=== PATIENT | female | born 1960 | race Caucasian/White ===

== ENCOUNTER 2024-02-03 11:36 | Inpatient (IN) | payer OTHER, SELFPAY ==
[2024-02-03] VITALS (13 sets, daily range): BP systolic 144–230; BP diastolic 73–120; BMI 37.5
[2024-02-03 08:46] LABS: % Basophils 0.6 % (0-2); % Eosinophils 0.8 % (0-6); % Immature Granulocytes 0.4 % (0-0.5); % Monocytes 6.7 % (1.7-9.3); % Neutrophils 72.5 % (42.2-75.2); Absolute Basophils 0.1 10^3/uL (0-0.2); Absolute Eosinophils 0.1 10^3/uL (0-0.7); Absolute Immature Granulocytes 0.1 10^3/uL (0-0.05); Absolute Lymphocytes 2.2 10^3/uL (1.2-3.4); Absolute Monocytes 0.8 10^3/uL (0.1-0.6); Absolute Neutrophils 8.6 10^3/uL (1.4-6.5); Hematocrit 46.5 % (37.0-47.0); Hemoglobin 15.6 g/dL (12.0-16.0); Mean Corp Hgb Conc. 33.5 g/dL (33.0-37.0); Mean Corpuscular Hgb 27.9 pg (27.0-31.0); Mean Platelet Volume 10.2 fL (7.4-10.4); Nucleated Red Blood Cells % 0 %; Platelet Count 269 10^3/uL (130-400); Red Cell Dist. Width 13.4 % (11.5-14.5); White Blood Cell Count 11.8 10^3/uL (4.8-10.8)
[2024-02-03] MEDS: SUBLIMAZE 100 MCG IV (09:01)
--- NOTE | 2024-02-03 09:01 | ED.GENMED ---
History of Present Illness
<Ramiro Parra PA-C - Last Filed: 02/03/24 14:22>
General
Chief Complaint: Musculo-Skeletal Complaint
Time Seen by Provider: 02/03/24 08:12
Travel History
Have you had any contact with someone who has COVID-19?: No
Do you have any symptoms of coronavirus? Fever > 100 degrees, chills, cough, shortness of breath, sore throat, loss of taste or smell, muscle aches, or headache?: No
History of Present Illness
History of Present Illness:
63-year-old female with history of insulin-dependent diabetes presents to the emergency department for evaluation of a right ankle deformity after mechanical fall apparently today. She states she tripped over her suitcase and heard an audible
snapping right ankle. There is a visible deformity with a small open wound to the medial talus. She is NOT on anticoagulants
Past History
<Ramiro Parra PA-C - Last Filed: 02/03/24 14:22>
Past History
ED Past Medical History: NIDDM, Psychiatric and Other (Diverticulitis/diverticulosis, ovarian cyst, anxiety, depression)
ED Past Surgical History: Appendectomy, Bowel resection, Cholecystectomy and Orthopedic
Social History
Tobacco: Non-smoker
Alcohol: None
Drug: None
Living: alone
Employment: Not employed
Family History
Family History: Other
Review of Systems
<Ramiro Parra PA-C - Last Filed: 02/03/24 14:22>
Review of Systems
Allergies reviewed?: Yes
All Other Systems: ROS reviewed and negative except as documented in HPI and ROS
Phy Exam
<Ramiro Parra PA-C - Last Filed: 02/03/24 14:22>
Physical Exam
Physical Exam:
GEN: Well appearing, NAD, WDWN
HEENT: Oral mucosa moist, no scleral icterus
Cardiac: Regular rate
Lung: No respiratory distress, no tachypnea
MSK: Right ankle deformity with severe swelling/hematoma to the medial aspect, small open wound with some skin tenting of the medial malleolus; no tenderness or deformity to the proximal right lower leg. R DP pulse 2+, sensation intact globally to
the R foot
Skin: Good color, no pallor or jaundice, no rashes
Neuro: AO x3, moves all extremities freely
Psych: Calm, cooperative
Course
<Ramiro Parra PA-C - Last Filed: 02/03/24 14:22>
Orders/Labs/Results
Orders:
Orders
02/03/24 08:29
Fentanyl Citrate/Pf [Sublimaze] 100 mcg IV NOW STA
CR Ankle - Right Min 3 Views * Urgent
Comment:
Reason For Exam: injury
CR Leg Tibia/fibula Right 2 Vw Urgent
Comment:
Reason For Exam: injury
02/03/24 08:41
Basic Metabolic Panel Urgent
Complete Blood Count/With Diff Urgent
02/03/24 Lunch
NPO
Allow oral meds: No
Allow clear liquids: No
02/03/24 10:53
CR Ankle - Right 2 Views Urgent
Comment:
Reason For Exam: post reduction
02/03/24 11:19
Admit/Transfer Patient As Directed
Co-Sign Provider:
Level of Care: Inpatient admission
Assign to:: Medical/Surgical
Physician / Group: Pati
Diagnosis: Ankle fracture
Reason for Hospitalization: Above
Expected length of stay greater than two midnights?: Yes
ELOS- Estimated Length of Stay in days: 2
I certify the patient meets the requirements for IP care: Yes
02/03/24 11:21
Code Status As Directed
Resuscitation Status: Full Code
02/03/24 12:18
HYDROmorphone [Dilaudid] 0.5 mg IV Q4HPRN PRN
Abnormal Lab Results
02/03/24
08:41
WBC 11.8 H 10^3/uL
(4.8-10.8)
RBC 5.60 H 10^6/uL
(4.20-5.40)
Abs Immat Gran (auto) 0.1 H 10^3/uL
(0-0.05)
Absolute Neuts (auto) 8.6 H 10^3/uL
(1.4-6.5)
Absolute Monos (auto) 0.8 H 10^3/uL
(0.1-0.6)
Lymphocytes % 19.0 L %
(20.5-51.1)
Sodium 134 L mmol/L
(135-145)
BUN 18 H mg/dl
(7-17)
Glucose 423 H mg/dl
(70-99)
02/03/24 08:41
02/03/24 08:41
Vital Signs
Initial and Last Documented VS:
Initial Vital Signs
Temp Pulse BP Pulse Ox
98.7 F 103 202/119 97
02/03/24 08:02 02/03/24 08:02 02/03/24 08:02 02/03/24 08:02
Last Documented Vital Signs
Temp Pulse Resp BP Pulse Ox
98.7 F 92 17 175/89 97
02/03/24 08:02 02/03/24 12:15 02/03/24 12:15 02/03/24 10:02 02/03/24 10:02
<Giovanni Headley MD - Last Filed: 02/03/24 14:07>
Orders/Labs/Results
Orders:
Orders
02/03/24 08:29
Fentanyl Citrate/Pf [Sublimaze] 100 mcg IV NOW STA
CR Ankle - Right Min 3 Views * Urgent
Comment:
Reason For Exam: injury
CR Leg Tibia/fibula Right 2 Vw Urgent
Comment:
Reason For Exam: injury
02/03/24 08:41
Basic Metabolic Panel Urgent
Complete Blood Count/With Diff Urgent
02/03/24 Lunch
NPO
Allow oral meds: No
Allow clear liquids: No
02/03/24 10:53
CR Ankle - Right 2 Views Urgent
Comment:
Reason For Exam: post reduction
02/03/24 11:19
Admit/Transfer Patient As Directed
Co-Sign Provider:
Level of Care: Inpatient admission
Assign to:: Medical/Surgical
Physician / Group: Pati
Diagnosis: Ankle fracture
Reason for Hospitalization: Above
Expected length of stay greater than two midnights?: Yes
ELOS- Estimated Length of Stay in days: 2
I certify the patient meets the requirements for IP care: Yes
02/03/24 11:21
Code Status As Directed
Resuscitation Status: Full Code
02/03/24 12:18
HYDROmorphone [Dilaudid] 0.5 mg IV Q4HPRN PRN
Abnormal Lab Results
02/03/24
08:41
WBC 11.8 H 10^3/uL
(4.8-10.8)
RBC 5.60 H 10^6/uL
(4.20-5.40)
Abs Immat Gran (auto) 0.1 H 10^3/uL
(0-0.05)
Absolute Neuts (auto) 8.6 H 10^3/uL
(1.4-6.5)
Absolute Monos (auto) 0.8 H 10^3/uL
(0.1-0.6)
Lymphocytes % 19.0 L %
(20.5-51.1)
Sodium 134 L mmol/L
(135-145)
BUN 18 H mg/dl
(7-17)
Glucose 423 H mg/dl
(70-99)
02/03/24 08:41
02/03/24 08:41
Vital Signs
Initial and Last Documented VS:
Initial Vital Signs
Temp Pulse BP Pulse Ox
98.7 F 103 202/119 97
02/03/24 08:02 02/03/24 08:02 02/03/24 08:02 02/03/24 08:02
Last Documented Vital Signs
Temp Pulse Resp BP Pulse Ox
98.7 F 92 17 175/89 97
02/03/24 08:02 02/03/24 12:15 02/03/24 12:15 02/03/24 10:02 02/03/24 10:02
Procedures
<Ramiro Parra PA-C - Last Filed: 02/03/24 14:22>
Joint/Fracture Reduction
Right Ankle:
Indication for procedure:: Trimalleolar fracture
Procedure completed by: Ramiro Parra PA-C
Consent form signed: No
Joint reduced: without anesthesia
Anesthesia/sedation: 1% Lidocaine and Injection to joint space
Injury was: open
Further treatement: needs further treatment
Post reduction exam: unstable
Capillary Refill: normal
Normal distal neurovascular exam?: Yes
<Ramiro Parra PA-C - Last Filed: 02/03/24 14:22>
MDM/Problems Addressed
MDM/Problems Addressed:
I reviewed clinical x-ray images of the patient's ankle with orthopedics and they will take the patient for operative intervention later today. I did perform hematoma block with bedside reduction and splinting, it was requested to hold IV
antibiotics until preoperative. Tetanus status updated due to open fracture, will be admitted to the hospitalist service due to uncontrolled hyperglycemia/insulin-dependent diabetes
<Ramiro Parra PA-C - Last Filed: 02/03/24 14:22>
*Critical Care Note
Total Time (30-74mins, 75-104mins- exclusive of procedures): Not Applicable
<Ramiro Parra PA-C - Last Filed: 02/03/24 14:22>
Update Note
Update Note:
0909: [employer] message sent to Orthopedics due to concern for subtle open fx.
0954: D/W Ortho, they will evaluate at bedside. Requesting no reduction/immobilization yet. Will keep pt NPO
ED Attending Note
<Ramiro Parra PA-C - Last Filed: 02/03/24 14:22>
-
Portions of this chart may have been created with voice recognition software.� Occasional wrong word or��sound alike� substitutions may have occurred due to the inherent limitations of voice recognition software.
<Giovanni Headley MD - Last Filed: 02/03/24 14:07>
ED Attending Note
Patient seen and examined by attending physician: Yes
ED Attending Note:
Patient presents ED secondary to sudden onset of right ankle pain, which occurred, when she got out of bed and was walking. Patient reports hearing 'snap'. Patient presents with obvious deformity and swelling of the affected ankle. Denies any
other injuries. Denies loss of sensation or weakness.
Physical Exam
General: moderate painful distress, not acutely ill. afebrile
Head: nc/at. eomi
Neck: supple. no meningeal signs.
Neuro: alert and oriented. no focal neurological deficits
Skin: no rash
Psychiatric: well kept. interactive and cooperative
Extremities: right ankle: deformity noted with ecchymosis/swelling/severe tenderness to palpation
X-ray report reviewed and discussed with on-call orthopedic surgeon, Dr. Akbar. Patient will be admitted for further evaluation and treatment. Patient given hematoma block and ankle reduced by STACEY Tobias, along with application of splint
afterwards. Pt remains neurologically intact.
Discharge Plan
Departure
Patient Disposition: Admit
Date of Disposition: 02/03/24
Time of Disposition: 10:53
Admit to: Med/Surg
Presentation/result/management discussed w/ accepting MD/DO: Hospitalist
Discharge Problem:
Open trimalleolar fracture of right ankle
Interventions
Interventions:
*Risk Screen - Suicide Last Done: 02/03/24 09:23
*General Assessment Last Done: 02/03/24 09:23
*Neglect/Abuse Screening Last Done: 02/03/24 09:23
ED- Fall Risk Assessment Last Done: 02/03/24 09:25
*ED COVID-19 Vaccine History Last Done: 02/03/24 08:09
ED-Musculoskeletal Assessment Last Done: 02/03/24 09:23
[2024-02-03 09:14] LABS: Blood Urea Nitrogen 18 mg/dl (7-17); Calcium 9.6 mg/dl (8.4-10.2); Carbon Dioxide 24 mmol/L (22-30); Chloride 99 mmol/L (98-107); Glucose 423 mg/dl (70-99); Sodium 134 mmol/L (135-145); eGFR > 60.00
--- NOTE | 2024-02-03 11:26 | HPS.HSE ---
Family Physician
-
Family Physician: WEI Mena
Chief Complaint
-
Fall with right ankle fracture
History of Present Illness
Patient is a 63 years old female with insulin requiring diabetes and hypertension who presents to the emergency room after misstep and fall at home. Patient denies any head trauma or loss of consciousness. She did hear a snap at the right ankle
and noticed right ankle deformity. She presented to the emergency room.
Medical History
Past Medical History
Past Medical History: Reports HTN and IDDM
Past Surgical History: Reports None
Social History
Tobacco: Non-smoker
Alcohol: None
Drug: None
Living: With Family
Family History
Family History: Not pertinent
Allergies / Home Medications
Allergies reflects when Allergies were last updated in [facility].
Home Medications with original date entered in [facility]
Allergy/Medication List:
Allergies
Allergy/AdvReac Type Severity Reaction Status Date / Time
latex AdvReac Unknown Verified 02/03/24 08:11
petroleum Allergy Rash Uncoded 02/03/24 08:11
Home Medications
escitalopram oxalate 5 mg tablet (Lexapro) 5 mg PO DAILY Mental Health/Anxiety 01/12/23
amlodipine 5 mg tablet 5 mg PO QPM Blood pressure 01/15/23
cveyzoiv-urpd-xtr-iron 18 mg-folic 240 mcg-vit K 120 mcg-herbal tablet ([employer]) 1 tab PO DAILY Supplement 01/15/23
insulin glargine 100 unit/mL (3 mL) subcutaneous pen (Lantus Solostar U-100 Insulin) 25 unit (0.25 mL) SC HS #5 ea 01/17/23
insulin lispro 100 unit/mL subcutaneous pen (Humalog KwikPen (U-100) Insulin) 10 unit (0.1 mL) SC AC #5 ea 01/17/23
atorvastatin 20 mg tablet (Lipitor) 20 mg PO QPM 02/03/24
lisinopril 20 mg tablet 20 mg PO DAILY 02/03/24
metformin 500 mg tablet,extended release 24hr (osmotic) 500 mg PO BID@0800,1700 Diabetes 02/03/24
naproxen sodium 220 mg tablet (Aleve) 220 mg PO BID 02/03/24
Review of Systems
-
A 12 point ROS was completed and negative except as noted: Yes
Musculoskeletal: Reports See HPI
Physical Exam
Vital Signs
Vital Signs
Temp Pulse Resp BP Pulse Ox
98.7 F 100 16 175/89 97
02/03/24 08:02 02/03/24 10:02 02/03/24 10:02 02/03/24 10:02 02/03/24 10:02
Physical Exam
General: Well Developed, Well Nourished and No Apparent Distress
HEENT: NormoCephalic, Moist mucous membranes and Atraumatic
Respiratory: Clear
Cardiac: S1/S2 and Regular Rhythm; No Murmur or Rub
GI: Soft, Non Tender, Non Distended and Normal Bowel Sounds; No Organomegaly
Rectal: Deferred by Provider
Musculoskeletal: No Clubbing, No Cyanosis and No Edema
Skin: No Rash
Neuro: Nonfocal/grossly intact
Laboratory Results
-
02/03/24 08:41
02/03/24 08:41
Laboratory Results
Total Bilirubin Cancelled 02/03/24 08:41
AST Cancelled 02/03/24 08:41
ALT Cancelled 02/03/24 08:41
Alkaline Phosphatase Cancelled 02/03/24 08:41
Data Reviewed
-
Diagnostic Radiology: Report Reviewed by me
Lab Data: Labs Reviewed by me
Impression/Plan
-
IMPRESSION:
Status post mechanical fall with comminuted fracture of the distal right tibia and fibula.
Conditions prior to admission:
IDDM.
Essential hypertension
Obesity
PLAN:
Right distal tibia and fibula fracture
Podiatry consultation.
Plan for OR on 02/02.
NPO.
Patient has no more prior history of cardiovascular, pulmonary, renal conditions, and does not require any additional workup prior to surgical intervention
Medically cleared for OR
IDDM
Noted with hyperglycemia upon admission.
Update hemoglobin A1c.
Resume Lantus/NovoLog/metformin regimen postoperatively along with carbohydrate diet.
Essential hypertension
Continue lisinopril and amlodipine.
Monitor blood pressure trend.
DVT prophylaxis to be determined post operatively
Full code.
--- NOTE | 2024-02-03 13:39 | CON.ORTHO ---
Consultation
-
Date/Time Consultation Requested: February 20
Date/Time Consultation Performed: February 20
Requesting Provider: Ramiro aPrra PA-C
Performing Provider: Amara harvey Shelli
Reason for Consultation: Right open Trimalleolar ankle fracture
Consultation - Orthopedics
History
Dictation#[id number]
Asked to see this pleasant 63 y/o white female with PMH of IDDM, diverticulosis, ovarian cyst, anxiety, depression who unfortunately tripped and fell at home this AM in the bedroom. She heard a felt an audible crack in the ankle and noticed
significant deformity. She was unable to get to her feet. She was able to get to a phone and was subsequently transported here to [facility] where plain xrays confirmed a trimalleolar fracture of her RIGHT ankle. There also appeared to be a small punctate
wound medially concerning for open fracture. There was an attempt to close reduce and splint in the ED with post-reduction films showing slightly better position. We have been requested in consultation for the consideration of surgical fixation
Allergies / Home Medications
Allergy/AdvReac Type Severity Reaction Status Date / Time
latex AdvReac Unknown Verified 02/03/24 08:11
petroleum Allergy Rash Uncoded 02/03/24 08:11
�Medication �Instructions �Recorded
escitalopram oxalate 5 mg tablet 5 mg PO DAILY Mental Health/Anxiety 01/12/23
(Lexapro)
amlodipine 5 mg tablet 5 mg PO QPM Blood pressure 01/15/23
wkdjcmxd-zfep-zyv-iron 18 mg-folic 1 tab PO DAILY Supplement 01/15/23
240 mcg-vit K 120 mcg-herbal
tablet ([employer])
insulin glargine 100 unit/mL (3 25 unit (0.25 mL) SC HS #5 ea 01/17/23
mL) subcutaneous pen (Lantus
Solostar U-100 Insulin)
insulin lispro 100 unit/mL 10 unit (0.1 mL) SC AC #5 ea 01/17/23
subcutaneous pen (Humalog KwikPen
(U-100) Insulin)
atorvastatin 20 mg tablet (Lipitor) 20 mg PO QPM 02/03/24
lisinopril 20 mg tablet 20 mg PO DAILY 02/03/24
metformin 500 mg tablet,extended 500 mg PO BID@0800,1700 Diabetes 02/03/24
release 24hr (osmotic)
naproxen sodium 220 mg tablet 220 mg PO BID 02/03/24
(Aleve)
Vital Signs / Lab Results
Temp Pulse Resp BP Pulse Ox
98.7 F 92 17 175/89 97
02/03/24 08:02 02/03/24 12:15 02/03/24 12:15 02/03/24 10:02 02/03/24 10:02
02/03/24 08:41
02/03/24 08:41
Assessment / Plan
PE: Bedrest ED8. RLE splinted and elevated on pillows. Small punctate wound medially on the ankle. Considerable amount of generalized edema. Generalized pain to palpation right ankle. Wiggles toes and has good sensation distally. Abrasion noted
right knee. DNVI RLE
Labs: Hgb 15.6 Glucose 423
Xrays: RIGHT, open, trimalleolar ankle fracture, with post-reduction xrays showing better alignment overall
Impression: TANIA
Plan: I discussed at length with the patient regarding, what we believe to be, her right OPEN trimalleolar ankle fracture. After reviewing all her options, including nonsurgical and surgical, as well as all the RBAs associated with each form of
management, she has elected to proceed with surgical correction. Given the amount of swelling here I would suggest we proceed with I&D of the ankle with external fixation/framing with definitive ORIF management when swelling as improved. If, at the
time of surgery, Dr. Marques feels as though ORIF can be achieved safely with regards to post-op wound concerns, he may also proceed with hardware placement. I did explain to her that I&D with external fixation/framing is more likely. We discussed
the concerns we have with wound concerns/healing with these fractures in the face of the amount of swelling she has. Also, her IDDM predisposes her to wound complications as well, so decreasing that risk as much as possible would be highly
recommended. Also her glucose here in the ED came back at 423. We are going to proceed shortly with likely I&D and ex-fix placement vs. ORIF of her RIGHT ankle. We discussed the post-op and rehab course as well. Patient is and will remain NPO. ABX
analytical consultant. T&S requested. Surgical and blood consents have been signed and are at the OR desk. Operative site has been marked as the RIGHT ankle. Dr. Marques notified. Will follow
[2024-02-03] MEDS: ADACEL 0.5 ML IM (14:29)
--- NOTE | 2024-02-03 16:47 | PTCARENOTE ---
Addendum entered by Marlena Rey RN 02/03/24 16:54:
BP on arrival 237/155 HR 120 automatic, 230/120 manual. Pt denies visual impairments, but c/o headache 11/09. Dr Krueger made aware. Care remains ongoing.
Original Note:
Pt arrived to 2S via stretcher, slid to bed via NSG staff. Full assessment completed. RLE splint maintained. RLE warm, <2 cap refill, + R popliteal pulse. Pt maintained as bedrest. Bed locked and in the lowest position, safety maintained. Oriented
to room and call fay.
[2024-02-03] MEDS: DILAUDID 0.5 MG IV ×2 (17:06→23:08)
[2024-02-03] MEDS: ZOFRAN 4 MG IV (17:06)
[2024-02-03] MEDS: TRANDATE 10 MG IV ×2 (17:09→23:09)
[2024-02-03] MEDS: NOVOLOG FLEXPEN SC (18:04)
[2024-02-03 18:05] LABS: Glucose - Point of Care 271 mg/dl (70-99)
[2024-02-03] MEDS: NOVOLOG FLEXPEN-LOW RESISTANCE 3 UNITS SC (18:28)
--- NOTE | 2024-02-03 20:30 | TRANSFER ---
pt was seen by Dr. Marques, then was prepped and taken over to OR @ 2015 in bed.
--- NOTE | 2024-02-03 21:30 | W.PN.UPDATE ---
Update Note
Progress Note Update
S/p right open ankle ex fix application and incision and drainage
-Resume diet
-Strict NWB RLE
-Continue Ancef x24 hr per SCIP protocol
-Dressings C/D/I
-Post operative CT Scan
-Plan for ORIF and exfix removal with swelling resolution, likely 1 week
[2024-02-03 21:41] LABS: Glucose - Point of Care 323 mg/dl (70-99)
[2024-02-03] MEDS: NOVOLOG vial 4 UNITS SC (22:07)
[2024-02-03] MEDS: OFIRMEV 100 IV (22:15)
[2024-02-03] MEDS: LANTUS 0.25 UNITS SC (23:31)
[2024-02-03] MEDS: DESENEX/MITRAZOL/ZEASORB 1 APPLIC TOPICAL (23:31)
[2024-02-03 23:38] LABS: Glucose - Point of Care 304 mg/dl (70-99)
[2024-02-04] VITALS (8 sets, daily range): BP systolic 122–178; BP diastolic 59–102; PULSE 89; O2SAT 97
--- NOTE | 2024-02-04 00:09 | TRANSFER ---
2225: report received from [employer] Tasha, pt was brought back to 2S in bed w new right ankle external fixator, RLE wrapped in ALPHONSO - unable to visualize insertion sites. +CMS to toes, + popliteal pulse. c/o 04/08 pain, pt medicated appropriately.
purewick in place, pt ordered NWB to RLE. Assessment ongoing.
[2024-02-04] MEDS: NOVOLOG FLEXPEN-LOW RESISTANCE SC (01:26)
[2024-02-04] MEDS: ANCEF 5 IV ×3 (04:44→20:27)
[2024-02-04] MEDS: DILAUDID 0.5 MG IV ×3 (04:47→20:27)
[2024-02-04 05:42] LABS: % Basophils 0.2 % (0-2); % Immature Granulocytes 0.5 % (0-0.5); % Lymphocytes 7.2 % (20.5-51.1); % Monocytes 3.5 % (1.7-9.3); % Neutrophils 88.6 % (42.2-75.2); Absolute Immature Granulocytes 0.1 10^3/uL (0-0.05); Absolute Lymphocytes 1.1 10^3/uL (1.2-3.4); Absolute Monocytes 0.5 10^3/uL (0.1-0.6); Absolute Neutrophils 13.5 10^3/uL (1.4-6.5); Hematocrit 44.5 % (37.0-47.0); Hemoglobin 14.9 g/dL (12.0-16.0); Mean Corp Hgb Conc. 33.5 g/dL (33.0-37.0); Mean Corpuscular Hgb 27.7 pg (27.0-31.0); Mean Corpuscular Volume 82.9 fL (81.0-99.0); Mean Platelet Volume 10.4 fL (7.4-10.4); Nucleated Red Blood Cells % 0 %; Platelet Count 233 10^3/uL (130-400); Red Blood Cell Count 5.37 10^6/uL (4.20-5.40); Red Cell Dist. Width 13.5 % (11.5-14.5); White Blood Cell Count 15.2 10^3/uL (4.8-10.8)
[2024-02-04] MEDS: ZOFRAN 4 MG IV ×3 (05:49→20:28)
[2024-02-04 06:23] LABS: Blood Urea Nitrogen 18 mg/dl (7-17); Carbon Dioxide 24 mmol/L (22-30); Chloride 99 mmol/L (98-107); Estimated Creatinine Clearance 87 ml/min; Glucose 325 mg/dl (70-99); Potassium 4.2 mmol/L (3.5-5.1); Sodium 133 mmol/L (135-145); eGFR > 60.00
[2024-02-04 07:02] LABS: Hepatitis C Antibody Negative (Negative)
--- NOTE | 2024-02-04 07:04 | W.PN.UPDATE ---
Update Note
Progress Note Update
Tala is resting comfortably in bed this morning. She states that her pain is well controlled with pain medications. She does endorse pain with movement. She states that her neuropathy in her foot is at baseline. She is worried about going home.
Focused exam to right ankle. Exfix in place. Dressings clean, dry, and intact. Compartments soft and compressible. Sensation decreased but at baseline for patient who has known neuropathy. Cap refill <2 secs.
POD1 right ankle exfix application, I&D under the direction of Dr. Marques for right open trimalleolar fracture
--Strict non weight bearing to right leg
--Elevate and ice often for edema control
--Continue pain medications as needed
--Hemaglobin 14.5, Glucose 325 on AM labs
--CT scan ordered. Will follow
--Plan for ORIF and exfix removal with swelling resolution, likely 1 week
--Case management consult
[2024-02-04 07:11] LABS: Glucose - Point of Care 372 mg/dl (70-99)
[2024-02-04] MEDS: ZESTRIL 20 MG PO ×2 (08:28→20:26)
[2024-02-04] MEDS: LEXAPRO 5 MG PO (08:28)
[2024-02-04] MEDS: DESENEX/MITRAZOL/ZEASORB 1 APPLIC TOPICAL ×2 (08:29→20:37)
[2024-02-04] MEDS: NOVOLOG FLEXPEN 10 UNITS SC ×2 (08:29→11:48)
[2024-02-04] MEDS: NOVOLOG FLEXPEN-LOW RESISTANCE 5 UNITS SC (08:30)
[2024-02-04 11:48] LABS: Glucose - Point of Care 226 mg/dl (70-99)
[2024-02-04] MEDS: NOVOLOG FLEXPEN-LOW RESISTANCE 2 UNITS SC (11:49)
[2024-02-04] MEDS: TRANDATE 10 MG IV (12:04)
[2024-02-04] MEDS: PROTONIX 40 MG PO (12:28)
[2024-02-04 12:30] LABS: Glucose - Point of Care 246 mg/dl (70-99)
[2024-02-04] MEDS: NORVASC 5 MG PO ×2 (13:44→20:26)
--- NOTE | 2024-02-04 15:21 | CM ---
Addendum entered by Lindsay Shearer 02/04/24 16:14:
Patient accepted at [facility]
NPI# [id number]
Dr Clarke NPI # [id number]
will initiate auth when stable.
Original Note:
Patient seen bedside.
IA completed.
Patient lives alone in a first floor apartment.
5 steps to apartment.
patient independent prior to admission without assistive devices.
Patient was driving prior to admission.
Patient is retired.
Patient has not had VN in the past.
Per patient there is noone to help her at home, her sister is away and her mother is ill.
PT/OT recommending skilled rehab, patient requested [facility], back up facilities [facility] and [facility].
TC to [facility], they should have a bed, await TCB.
Patient will need insurance authorization.
PCP: Dr An
Pharmacy: [facility]
Plan: skilled rehab.
--- NOTE | 2024-02-04 15:52 | W.PN.HOSP.TC ---
Today's Communication/Plan
-
Reinstate PT OT with strict nonweightbearing on the right lower extremity
Adjust diabetic and antihypertensive regimen
Assessment / Plan
Assessment / Plan
IMPRESSION:
Status post mechanical fall with comminuted fracture of the distal right tibia and fibula.
Conditions prior to admission:
IDDM.
Essential hypertension
Obesity
PLAN:
Right distal tibia and fibula fracture
Status post Ex fix application of open ankle with incisions and debridement on 02/02
Strict nonweightbearing on right lower extremity
Pain control
Perioperative antibiotics for 24 hours.
ORIF in 1 week tentatively for Friday 02/09
IDDM
Noted with hyperglycemia upon admission.
Globin A1c 11
Adjust insulin dose with hyperglycemia
Reintroduce metformin
Essential hypertension
Elevated BP likely function of pain
Increase amlodipine and lisinopril. Continue IV labetalol
Monitor blood pressure trend.
DVT prophylaxis to be determined post operatively
Full code.
Anticipated Discharge: > 48 hours
Subjective/Interval History
-
Date of Service: February 04, 2024
Objective Data
-
Labs:
Laboratory Results
02/04/24
04:35
WBC 15.2 H
Hgb 14.9
Hct 44.5
Plt Count 233
Sodium 133 L
Potassium 4.2
Chloride 99
Carbon Dioxide 24
BUN 18 H
Creatinine 0.7
Glucose 325 H
Calcium 9.0
Vital Signs:
Vital Signs
Temp Pulse Resp BP Pulse Ox
97.6 F 97 18 152/84 98
02/04/24 15:00 02/04/24 15:00 02/04/24 15:00 02/04/24 15:00 02/04/24 15:00
I&O
02/03/24 02/04/24 02/05/24
06:59 06:59 06:59
Intake Total 465 / 465
Output Total 150 / 150
Balance 315 / 315
Physical Exam
-
General: Well Developed and No Apparent Distress
HEENT: Normocephalic, Atraumatic and Moist Mucous Membranes
Respiratory: Clear to Auscultation
Cardiac: Regular Rhythm and S1/S2; Negative Murmur, Rub or Gallop
GI: Soft, Nontender, Nondistended and Normal Bowel Sounds; Negative Organomegaly
Rectal: Deferred by Provider
Musculoskeletal: No Clubbing, No Cyanosis and No Edema
Skin: Negative Rash
Neuro: Nonfocal/Grossly Intact
[2024-02-04 17:19] LABS: Glucose - Point of Care 260 mg/dl (70-99)
[2024-02-04] MEDS: LIPITOR 20 MG PO (17:20)
[2024-02-04] MEDS: NOVOLOG FLEXPEN-LOW RESISTANCE 3 UNITS SC (17:20)
[2024-02-04] MEDS: NOVOLOG FLEXPEN 12 UNITS SC (17:20)
[2024-02-04] MEDS: GLUCOPHAGE XR EXTENDED RELEASE 500 MG PO (17:20)
[2024-02-04] MEDS: LANTUS 0.349999999999999978 UNITS SC (22:09)
[2024-02-04 22:10] LABS: Glucose - Point of Care 255 mg/dl (70-99)
[2024-02-05] VITALS (9 sets, daily range): BP systolic 119–177; BP diastolic 60–100; PULSE 88–99; O2SAT 97
[2024-02-05] MEDS: ZOFRAN 4 MG IV ×3 (03:09→20:15)
[2024-02-05] MEDS: DILAUDID 0.5 MG IV ×3 (03:10→20:51)
[2024-02-05] MEDS: ANCEF 5 IV ×3 (03:10→20:16)
--- NOTE | 2024-02-05 03:57 | PTCARENOTE ---
Pt requested purewick for the rest of this shift, stating she is incontinent when she sleeps at night. RN explained need for use of bedpan since pt is able to verbalize need to void, pt rolls well in bed, and to promote movement/ independence. pt
verbalized understanding, however, stated she didn't agree with reasoning for discontinuing purewick yesterday morning. Assessment ongoing.
[2024-02-05 05:22] LABS: % Basophils 0.4 % (0-2); % Eosinophils 0.3 % (0-6); % Immature Granulocytes 0.4 % (0-0.5); % Lymphocytes 25.9 % (20.5-51.1); % Monocytes 9.8 % (1.7-9.3); % Neutrophils 63.2 % (42.2-75.2); Absolute Monocytes 1.1 10^3/uL (0.1-0.6); Absolute Neutrophils 7.2 10^3/uL (1.4-6.5); Hematocrit 38.6 % (37.0-47.0); Hemoglobin 13.3 g/dL (12.0-16.0); Mean Corp Hgb Conc. 34.5 g/dL (33.0-37.0); Mean Corpuscular Hgb 28.5 pg (27.0-31.0); Mean Corpuscular Volume 82.8 fL (81.0-99.0); Mean Platelet Volume 10.4 fL (7.4-10.4); Nucleated Red Blood Cells % 0 %; Platelet Count 256 10^3/uL (130-400); Red Blood Cell Count 4.66 10^6/uL (4.20-5.40); Red Cell Dist. Width 13.8 % (11.5-14.5); White Blood Cell Count 11.4 10^3/uL (4.8-10.8)
[2024-02-05 05:46] LABS: Blood Urea Nitrogen 21 mg/dl (7-17); Carbon Dioxide 23 mmol/L (22-30); Chloride 100 mmol/L (98-107); Estimated Creatinine Clearance 87 ml/min; Glucose 265 mg/dl (70-99); Potassium 4.2 mmol/L (3.5-5.1); Sodium 131 mmol/L (135-145); eGFR > 60.00
[2024-02-05 07:33] LABS: Glucose - Point of Care 299 mg/dl (70-99)
--- NOTE | 2024-02-05 07:35 | W.PN.UPDATE ---
Update Note
Progress Note Update
Tala is resting comfortably in bed this morning. She states that her pain is well controlled with pain medications. She does endorse pain with movement. She was able to work with physical therapy without significant difficulty. She states that
her neuropathy in her foot is at baseline.
Focused exam to right ankle. Exfix in place. Very small amount of dried blood surrounding proximal pins; otherwise clean, dry and intact. Compartments soft and compressible. Sensation decreased but at baseline for patient who has known neuropathy.
Cap refill <[address] 02/04/2024
>The tibiotalar subluxation is stable from the most recent intraoperative films. There remains mild widening of the joint anteriorly.
>The posterior malleolar fracture shows persistent mild displacement.. This is comminuted. The main fracture line measures 5 mm. This is stable. There is approximate 3 mm override superiorly.
>The medial malleolar fracture also is stable and comminuted. The main fracture line measures 3 mm.
>The comminuted predominantly oblique fracture of the distal fibular metadiaphysis is stable. The fracture line measures approximately 2 mm. There is approximate 4 mm override.
>Fixation pins have been placed through the midshaft of the tibia, calcaneus, cuboid and medial cuneiform.
POD2 right ankle exfix application, I&D under the direction of Dr. Marques for right open trimalleolar fracture
--Strict non weight bearing to right leg. We appreciate the assistance of PT/OT while admitted.
--Elevate and ice often for edema control.
--Continue pain medications as needed.
--Hemaglobin 13.3, Glucose 265 on AM labs
--CT scan completed yesterday.
--Plan for ORIF and exfix removal with swelling resolution. Tentative plan to return to OR on Friday 02/09.
--Case management consult.
[2024-02-05] MEDS: ZESTRIL 20 MG PO ×2 (08:12→20:16)
[2024-02-05] MEDS: GLUCOPHAGE XR EXTENDED RELEASE 500 MG PO ×2 (08:12→17:18)
[2024-02-05] MEDS: PROTONIX 40 MG PO (08:12)
[2024-02-05] MEDS: NORVASC 5 MG PO ×2 (08:12→20:15)
[2024-02-05] MEDS: LEXAPRO 5 MG PO (08:12)
[2024-02-05] MEDS: NOVOLOG FLEXPEN 12 UNITS SC (08:13)
[2024-02-05] MEDS: NOVOLOG FLEXPEN-LOW RESISTANCE 3 UNITS SC (08:13)
[2024-02-05] MEDS: DESENEX/MITRAZOL/ZEASORB 1 APPLIC TOPICAL ×3 (08:17→20:22)
--- NOTE | 2024-02-05 08:31 | PN.CDI ---
CDI
- -
CDI:
Physician Documentation Request
Admit Date: 02/03/24 11:36
Dear Doctor Shelli,
Please review the following and provide your response in the progress notes.
Clinical Indicators:
- 02/02 Operative Report 'Ex fix application of open ankle with incisions and debridement'
- 'The wound was debrided with copious amounts of normal sterile saline'
Could you provide, in the progress notes further clarification regarding the debridement.
Please specify the type of debridement performed:
1. Excisional Debridement - defined as removal by excision of devitalized tissue, necrosis or slough
2. Non-excisional debridement - defined as removal of devitalized tissue, necrosis or slough by such methods as irrigation, brushing, scrubbing or washing.
If the debridement was excisional, please also include:
1. Type of instrument used (#11 blade, #15 blade etc.)
2. What was excised (necrotic tissue, gangrenous tissue, slough etc.)
For excisional or non-excisional, please also include:
1. Depth of debridement (skin, subcutaneous tissue, fascia, muscle, bone etc)
2. Size and appearance of the wound (L, W, D, color of wound, drainage)
Use of terms such as suspected, likely, concern for, or probable (associated with a specific diagnosis that is being evaluated, monitored, or treated as if it exists) are acceptable and can be coded in the inpatient setting, when documented at the
time of discharge.
Thank you,
Liza Moore RN
CDI Specialist
Please use your independent medical judgment in providing your response.
[2024-02-05] MEDS: TYLENOL 650 MG PO ×2 (09:52→20:16)
[2024-02-05 12:28] LABS: Glucose - Point of Care 259 mg/dl (70-99)
[2024-02-05] MEDS: NOVOLOG FLEXPEN-MODERATE RESISTANCE 5 UNITS SC (12:33)
[2024-02-05] MEDS: NOVOLOG FLEXPEN 15 UNITS SC ×2 (12:33→17:18)
--- NOTE | 2024-02-05 16:17 | CM ---
Case management following for d/c planning
Chart reviewed
Pt nonweightbearing on the right lower extremity
Planned ORIF on 02/09
PT recommending SNF - [facility] can accept
Will need auth
Plan - snf when medically ready - [facility] can accept. Will need auth
--- NOTE | 2024-02-05 16:42 | W.PN.HOSP.TC ---
Today's Communication/Plan
-
Adjust insulin regimen for hyperglycemia.
Assessment / Plan
Assessment / Plan
IMPRESSION:
Status post mechanical fall with comminuted fracture of the distal right tibia and fibula.
Conditions prior to admission:
IDDM.
Essential hypertension
Obesity
PLAN:
Right distal tibia and fibula fracture
Status post Ex fix application of open ankle with incisions and debridement on 02/02
Strict nonweightbearing on right lower extremity
Pain control
Perioperative antibiotics for 24 hours.
ORIF in 1 week tentatively for Friday 02/09
IDDM
Noted with hyperglycemia upon admission.
Globin A1c 11
Adjust insulin dose with hyperglycemia
Reintroduce metformin
Essential hypertension
Elevated BP likely function of pain
Increase amlodipine and lisinopril. Continue IV labetalol
Monitor blood pressure trend.
DVT prophylaxis to be determined post operatively
Full code.
Anticipated Discharge: > 48 hours
Subjective/Interval History
-
Date of Service: February 05, 2024
Objective Data
-
Labs:
Laboratory Results
02/05/24
04:16
WBC 11.4 H
Hgb 13.3
Hct 38.6
Plt Count 256
Sodium 131 L
Potassium 4.2
Chloride 100
Carbon Dioxide 23
BUN 21 H
Creatinine 0.7
Glucose 265 H
Calcium 9.0
Vital Signs:
Vital Signs
Temp Pulse Resp BP Pulse Ox
97.8 F 88 18 127/76 95
02/05/24 15:00 02/05/24 15:00 02/05/24 15:00 02/05/24 15:00 02/05/24 15:00
I&O
02/04/24 02/05/24 02/06/24
06:59 06:59 06:59
Intake Total 465 / 465 620 / 620
Output Total 150 / 150
Balance 315 / 315 620 / 620
Physical Exam
-
General: Well Developed and No Apparent Distress
HEENT: Normocephalic, Atraumatic and Moist Mucous Membranes
Respiratory: Clear to Auscultation
Cardiac: Regular Rhythm and S1/S2; Negative Murmur, Rub or Gallop
GI: Soft, Nontender, Nondistended and Normal Bowel Sounds; Negative Organomegaly
Rectal: Deferred by Provider
Musculoskeletal: No Clubbing, No Cyanosis and No Edema
Skin: Negative Rash
Neuro: Nonfocal/Grossly Intact
[2024-02-05] MEDS: LIPITOR 20 MG PO (17:18)
[2024-02-05 17:19] LABS: Glucose - Point of Care 212 mg/dl (70-99)
[2024-02-05] MEDS: NOVOLOG FLEXPEN-MODERATE RESISTANCE 3 UNITS SC (17:19)
[2024-02-05 18:33] LABS: Glucose - Point of Care 194 mg/dl (70-99)
[2024-02-05 21:24] LABS: Glucose - Point of Care 144 mg/dl (70-99)
[2024-02-05] MEDS: LANTUS 0.400000000000000022 UNITS SC (21:31)
[2024-02-06] VITALS (8 sets, daily range): BP systolic 129–170; BP diastolic 65–88; PULSE 106; O2SAT 96–97
[2024-02-06] MEDS: ANCEF 5 IV ×3 (04:24→20:17)
[2024-02-06] MEDS: ZOFRAN 4 MG IV ×2 (04:24→20:17)
[2024-02-06] MEDS: DILAUDID 0.5 MG IV ×3 (04:59→20:17)
[2024-02-06 07:11] LABS: Glucose - Point of Care 186 mg/dl (70-99)
--- NOTE | 2024-02-06 07:13 | W.PN.ORTHO ---
Today's Communication / Plan
-
Patient strict nonweightbearing right lower extremity
Ice with elevation on 3 pillows to help minimize edema
Pain control
Heparin for DVT prophylactics
Saturday Dr. Marques plans will be to remove Ex-Fix and do open reduction internal fixation
Assessment
.
Distal Motor Intact: Yes
Dressing:
Clean, dry and intact.
Plan
.
Surgery / Date: R ankle ex fix placement 02/02 [facility]
DVT Prophylaxis: Heparin
Activity:
Out of bed.
PT/OT
Discharge Plan: Home w/ VN
Subjective
.
.:
Patient resting comfortably.
Vital Signs and Labs
.
Vital Signs and Labs:
Lab Results
02/05/24 04:16
02/05/24 04:16
Temp Pulse Resp BP Pulse Ox
98.5 F 93 18 170/75 97
02/06/24 03:00 02/06/24 03:00 02/06/24 03:00 02/06/24 03:00 02/06/24 03:00
[2024-02-06] MEDS: PROTONIX 40 MG PO (08:55)
[2024-02-06] MEDS: GLUCOPHAGE XR EXTENDED RELEASE 500 MG PO ×2 (08:56→17:25)
[2024-02-06] MEDS: ZESTRIL 20 MG PO ×2 (08:56→20:32)
[2024-02-06] MEDS: NORVASC 5 MG PO ×2 (08:56→20:25)
[2024-02-06] MEDS: LEXAPRO 5 MG PO (08:56)
[2024-02-06] MEDS: NOVOLOG FLEXPEN-MODERATE RESISTANCE 1 UNITS SC ×2 (08:57→17:26)
[2024-02-06] MEDS: DESENEX/MITRAZOL/ZEASORB 1 APPLIC TOPICAL (08:59)
[2024-02-06] MEDS: NOVOLOG FLEXPEN 15 UNITS SC ×3 (09:00→17:26)
--- NOTE | 2024-02-06 11:18 | CM ---
Case management following re: d/c planning
Reviewed pt's chart, met with pt.
Pt nonweightbearing on the right lower extremity. Planned ORIF on 02/09
PT recommending [facility] can accept. Pt will need an auth from [facility] for skilled level of care at [facility].
Plan - [facility] when medically stable.
CM will follow wit discharge plan updates as hospitalization progresses
[2024-02-06 12:37] LABS: Glucose - Point of Care 207 mg/dl (70-99)
[2024-02-06] MEDS: NOVOLOG FLEXPEN-MODERATE RESISTANCE 3 UNITS SC (12:45)
--- NOTE | 2024-02-06 16:03 | W.PN.HOSP.TC ---
Today's Communication/Plan
-
Adjust insulin dose.
Assessment / Plan
Assessment / Plan
IMPRESSION:
Status post mechanical fall with comminuted fracture of the distal right tibia and fibula.
Conditions prior to admission:
IDDM.
Essential hypertension
Obesity
PLAN:
Right distal tibia and fibula fracture
Status post Ex fix application of open ankle with incisions and debridement on 02/02
Strict nonweightbearing on right lower extremity
Pain control
Perioperative antibiotics for 24 hours.
ORIF in 1 week tentatively for Friday 02/09
IDDM
Noted with hyperglycemia upon admission.
Globin A1c 11
Adjust insulin dose with hyperglycemia
Reintroduce metformin
Essential hypertension
Elevated BP likely function of pain
Increase amlodipine and lisinopril. Continue IV labetalol
Monitor blood pressure trend.
DVT prophylaxis to be determined post operatively
Full code.
Anticipated Discharge: > 48 hours
Subjective/Interval History
-
Date of Service: February 06, 2024
Objective Data
-
Vital Signs:
Vital Signs
Temp Pulse Resp BP Pulse Ox
97.8 F 104 17 129/84 98
02/06/24 15:05 02/06/24 15:05 02/06/24 15:05 02/06/24 15:05 02/06/24 15:05
I&O
02/05/24 02/06/24 02/07/24
06:59 06:59 06:59
Intake Total 620 / 620 360 / 360
Output Total 500 / 500
Balance 620 / 620 -140 / -140
Physical Exam
-
General: Well Developed and No Apparent Distress
HEENT: Normocephalic, Atraumatic and Moist Mucous Membranes
Respiratory: Clear to Auscultation
Cardiac: Regular Rhythm and S1/S2; Negative Murmur, Rub or Gallop
GI: Soft, Nontender, Nondistended and Normal Bowel Sounds; Negative Organomegaly
Rectal: Deferred by Provider
Musculoskeletal: No Clubbing, No Cyanosis and No Edema
Skin: Negative Rash
Neuro: Nonfocal/Grossly Intact
--- NOTE | 2024-02-06 16:16 | OR.RPT ---
Operative Report
Operative Report
addendeum to operative report
Excisional debridement to the level of bone for treatment of open fracture
[2024-02-06 17:23] LABS: Glucose - Point of Care 190 mg/dl (70-99)
[2024-02-06] MEDS: LIPITOR 20 MG PO (17:25)
[2024-02-06 21:28] LABS: Glucose - Point of Care 161 mg/dl (70-99)
[2024-02-06] MEDS: LANTUS 0.450000000000000011 UNITS SC (21:35)
[2024-02-07] VITALS (10 sets, daily range): BP systolic 141–163; BP diastolic 78–104; PULSE 99
[2024-02-07] MEDS: DILAUDID 0.5 MG IV ×5 (02:38→23:57)
[2024-02-07] MEDS: ZOFRAN 4 MG IV ×3 (02:40→18:06)
[2024-02-07] MEDS: ANCEF 5 IV ×3 (03:13→20:46)
[2024-02-07 07:18] LABS: Glucose - Point of Care 178 mg/dl (70-99)
--- NOTE | 2024-02-07 08:10 | W.PN.UPDATE ---
Update Note
Progress Note Update
Patient was utilized the restroom at time of a.m. rounding.
Patient strict nonweightbearing right lower extremity
Ice with elevation on 3 pillows to help minimize edema
Pain control
Heparin for DVT prophylactics- hold after saturday for OR, NPO @ [place]
Saturday Dr. Marques plans will be to remove Ex-Fix and do open reduction internal fixation
[2024-02-07] MEDS: NOVOLOG FLEXPEN 15 UNITS SC ×3 (08:41→18:00)
[2024-02-07] MEDS: NOVOLOG FLEXPEN-MODERATE RESISTANCE 1 UNITS SC ×2 (08:42→18:00)
[2024-02-07] MEDS: COLACE 100 MG PO ×2 (08:42→20:46)
[2024-02-07] MEDS: ZESTRIL 20 MG PO ×2 (08:43→20:46)
[2024-02-07] MEDS: NORVASC 5 MG PO ×2 (08:43→20:57)
[2024-02-07] MEDS: LEXAPRO 5 MG PO (08:43)
[2024-02-07] MEDS: PROTONIX 40 MG PO (08:43)
[2024-02-07] MEDS: DESENEX/MITRAZOL/ZEASORB 1 APPLIC TOPICAL ×2 (08:43→20:57)
[2024-02-07] MEDS: GLUCOPHAGE XR EXTENDED RELEASE 500 MG PO ×2 (08:43→18:01)
[2024-02-07 12:17] LABS: Glucose - Point of Care 310 mg/dl (70-99)
[2024-02-07] MEDS: NOVOLOG FLEXPEN-MODERATE RESISTANCE 7 UNITS SC (12:21)
[2024-02-07] MEDS: MIRALAX 17 GRAMS PO (12:27)
--- NOTE | 2024-02-07 15:41 | CM ---
manager of tires sales reviewed patient's chart and met with patient and plan is for OR on Saturday and then skilled placement at [facility]. Needs auth
Plan; Skilled placement, needs follow up.
--- NOTE | 2024-02-07 16:08 | W.PN.HOSP.TC ---
Today's Communication/Plan
-
Adjust insulin dose for hyperglycemia
Assessment / Plan
Assessment / Plan
IMPRESSION:
Status post mechanical fall with comminuted fracture of the distal right tibia and fibula.
Conditions prior to admission:
IDDM.
Essential hypertension
Obesity
PLAN:
Right distal tibia and fibula fracture
Status post Ex fix application of open ankle with incisions and debridement on 02/02
Strict nonweightbearing on right lower extremity
Pain control
Perioperative antibiotics for 24 hours.
ORIF in 1 week tentatively for Friday 02/09
IDDM
Noted with hyperglycemia upon admission.
Hg A1c 11
Adjust insulin dose with hyperglycemia
Reintroduce metformin
Essential hypertension
Elevated BP likely function of pain
Increase amlodipine and lisinopril. Continue IV labetalol
Monitor blood pressure trend.
DVT prophylaxis to be determined post operatively
Full code.
Anticipated Discharge: 24 - 48 hours
Subjective/Interval History
-
Date of Service: February 07, 2024
Objective Data
-
Vital Signs:
Vital Signs
Temp Pulse Resp BP Pulse Ox
98.9 F 104 16 154/104 96
02/07/24 14:42 02/07/24 14:42 02/07/24 14:42 02/07/24 14:42 02/07/24 14:42
I&O
02/06/24 02/07/24 02/08/24
06:59 06:59 06:59
Intake Total 360 / 360 1600 / 1600
Output Total 500 / 500
Balance -140 / -140 1600 / 1600
Physical Exam
-
General: Well Developed and No Apparent Distress
HEENT: Normocephalic, Atraumatic and Moist Mucous Membranes
Respiratory: Clear to Auscultation
Cardiac: Regular Rhythm and S1/S2; Negative Murmur, Rub or Gallop
GI: Soft, Nontender, Nondistended and Normal Bowel Sounds; Negative Organomegaly
Rectal: Deferred by Provider
Musculoskeletal: No Clubbing, No Cyanosis and No Edema
Skin: Negative Rash
Neuro: Nonfocal/Grossly Intact
[2024-02-07 16:44] LABS: Glucose - Point of Care 162 mg/dl (70-99)
[2024-02-07] MEDS: LIPITOR 20 MG PO (18:05)
[2024-02-07] MEDS: HEPARIN 5000 UNITS SC (20:46)
[2024-02-07 21:23] LABS: Glucose - Point of Care 144 mg/dl (70-99)
[2024-02-07] MEDS: LANTUS 0.479999999999999982 UNITS SC (21:58)
[2024-02-08 03:03] VITALS: BP 151/87
[2024-02-08] MEDS: DILAUDID 0.5 MG IV ×4 (05:57→22:29)
[2024-02-08 07:00] VITALS: BP 151/90
[2024-02-08 07:10] LABS: Glucose - Point of Care 142 mg/dl (70-99)
[2024-02-08] MEDS: NOVOLOG FLEXPEN 15 UNITS SC ×3 (07:47→17:46)
[2024-02-08] MEDS: NOVOLOG FLEXPEN-MODERATE RESISTANCE SC ×2 (07:48→17:17)
[2024-02-08] MEDS: COLACE 100 MG PO ×2 (07:48→20:36)
[2024-02-08] MEDS: DESENEX/MITRAZOL/ZEASORB 1 APPLIC TOPICAL ×2 (07:48→20:37)
[2024-02-08] MEDS: GLUCOPHAGE XR EXTENDED RELEASE 500 MG PO ×2 (07:48→17:46)
[2024-02-08] MEDS: ZESTRIL 20 MG PO ×2 (07:49→20:36)
[2024-02-08] MEDS: PROTONIX 40 MG PO (07:49)
[2024-02-08] MEDS: NORVASC 5 MG PO ×2 (07:49→20:36)
[2024-02-08] MEDS: LEXAPRO 5 MG PO (07:49)
[2024-02-08] MEDS: HEPARIN 5000 UNITS SC ×2 (07:49→20:34)
[2024-02-08] MEDS: MIRALAX 17 GRAMS PO (07:49)
--- NOTE | 2024-02-08 09:23 | W.PN.UPDATE ---
Update Note
Progress Note Update
Patient doing/feeling well this AM. Ex-fix in place RLE. Enjoying breakfast. Has been elevating as much as possible. Plan for Ex-fix removal and ORIF right ankle is Saturday via Dr. Marques. Will formally consent for this tomorrow AM.
Heparin to be held Saturday PM in anticipation of Saturday OR. Will follow
--- NOTE | 2024-02-08 10:26 | W.PN.HOSP.TC ---
Today's Communication/Plan
-
monitor vitals
see plan
Pain control
Plan for OR Saturday
Continue with insulin
Assessment / Plan
Assessment / Plan
IMPRESSION:
Status post mechanical fall with comminuted fracture of the distal right tibia and fibula.
Conditions prior to admission:
IDDM.
Essential hypertension
Obesity
PLAN:
Right distal tibia and fibula fracture
Status post Ex fix application of open ankle with incisions and debridement on 02/02
Strict nonweightbearing on right lower extremity
Pain control
Perioperative antibiotics for 24 hours.
ORIF in 1 week tentatively for Friday 02/09
ex-fix in place
IDDM
Noted with hyperglycemia upon admission.
Hg A1c 11
Adjust insulin dose with hyperglycemia
Reintroduce metformin
Essential hypertension
Elevated BP likely function of pain
Increase amlodipine and lisinopril. Continue IV labetalol
Monitor blood pressure trend.
DVT prophylaxis to be determined post operatively
Full code.
General: Well Developed and No Apparent Distress
HEENT: Normocephalic, Atraumatic and Moist Mucous Membranes
Respiratory: Clear to Auscultation
Cardiac: Regular Rhythm and S1/S2; Negative Murmur, Rub or Gallop
GI: Soft, Nontender, Nondistended and Normal Bowel Sounds
Rectal: Deferred by Provider
Musculoskeletal: No Clubbing, No Cyanosis and No Edema
Skin: Negative Rash
Neuro: Nonfocal/Grossly Intact
Anticipated Discharge: > 48 hours
Subjective/Interval History
-
Date of Service: February 08, 2024
denies pain
Objective Data
-
Vital Signs:
Vital Signs
Temp Pulse Resp BP Pulse Ox
99.3 F 94 18 151/90 98
02/08/24 07:00 02/08/24 07:00 02/08/24 07:00 02/08/24 07:49 02/08/24 07:00
I&O
02/07/24 02/08/24 02/09/24
06:59 06:59 06:59
Intake Total 1600 / 1600 720 / 720
Balance 1600 / 1600 720 / 720
[2024-02-08 11:00] VITALS: BP 137/80
[2024-02-08 11:40] LABS: Glucose - Point of Care 163 mg/dl (70-99)
[2024-02-08] MEDS: NOVOLOG FLEXPEN-MODERATE RESISTANCE 1 UNITS SC (12:12)
[2024-02-08 15:31] VITALS: BP 156/97
[2024-02-08 17:12] LABS: Glucose - Point of Care 137 mg/dl (70-99)
[2024-02-08] MEDS: LIPITOR 20 MG PO (17:47)
[2024-02-08] MEDS: FLUSH (NSS) 1 FLUSH IV (18:23)
[2024-02-08 19:00] VITALS: BP 128/82
[2024-02-08 21:32] LABS: Glucose - Point of Care 132 mg/dl (70-99)
[2024-02-08] MEDS: LANTUS 0.479999999999999982 UNITS SC (21:58)
[2024-02-08 23:00] VITALS: BP 141/76
[2024-02-09] VITALS (9 sets, daily range): BP systolic 128–164; BP diastolic 66–96; PULSE 97
[2024-02-09] MEDS: DILAUDID 0.5 MG IV ×4 (04:54→22:01)
[2024-02-09 08:21] LABS: Glucose - Point of Care 141 mg/dl (70-99)
[2024-02-09] MEDS: NOVOLOG FLEXPEN 15 UNITS SC ×3 (08:46→17:19)
[2024-02-09] MEDS: NOVOLOG FLEXPEN-MODERATE RESISTANCE SC ×2 (08:46→12:16)
[2024-02-09] MEDS: NORVASC 5 MG PO ×2 (08:47→20:23)
[2024-02-09] MEDS: HEPARIN 5000 UNITS SC ×2 (08:47→20:23)
[2024-02-09] MEDS: ZESTRIL 20 MG PO ×2 (08:47→20:24)
[2024-02-09] MEDS: PROTONIX 40 MG PO (08:47)
[2024-02-09] MEDS: LEXAPRO 5 MG PO (08:47)
[2024-02-09] MEDS: DESENEX/MITRAZOL/ZEASORB 1 APPLIC TOPICAL ×2 (08:48→20:24)
[2024-02-09] MEDS: GLUCOPHAGE XR EXTENDED RELEASE 500 MG PO ×2 (08:48→17:20)
[2024-02-09] MEDS: MIRALAX 17 GRAMS PO (08:48)
[2024-02-09] MEDS: COLACE 100 MG PO ×2 (08:48→20:23)
--- NOTE | 2024-02-09 09:16 | W.PN.UPDATE ---
Update Note
Progress Note Update
Patient resting comfortably. Surgical and blood consent signed for tomorrow's procedure, and placed on patient's chart. Spoke to RN. Will D/c Heparin after tonight's dose. CLAUDIA RLE. She is NPO pMN. 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
--- NOTE | 2024-02-09 10:11 | W.PN.HOSP.TC ---
Today's Communication/Plan
-
monitor vitals
see plan
pain control
labs in am
dec overnight insulin
npo past midnight
Assessment / Plan
Assessment / Plan
IMPRESSION:
Status post mechanical fall with comminuted fracture of the distal right tibia and fibula.
Conditions prior to admission:
IDDM.
Essential hypertension
Obesity
PLAN:
Right distal tibia and fibula fracture
Status post Ex fix application of open ankle with incisions and debridement on 02/02
Strict nonweightbearing on right lower extremity
Pain control
Perioperative antibiotics for 24 hours.
ORIF for Friday 02/09
ex-fix in place
IDDM
Noted with hyperglycemia upon admission.
Hg A1c 11
Adjust insulin dose with hyperglycemia; dec overnight since NPO past midnight for OR tomorrow
Reintroduce metformin
Essential hypertension
Elevated BP likely function of pain
Increase amlodipine and lisinopril. Continue IV labetalol
Monitor blood pressure trend.
DVT prophylaxis to be determined post operatively
Full code.
General: Well Developed and No Apparent Distress
HEENT: Normocephalic, Atraumatic and Moist Mucous Membranes
Respiratory: Clear to Auscultation
Cardiac: Regular Rhythm and S1/S2; Negative Murmur, Rub or Gallop
GI: Soft, Nontender, Nondistended and Normal Bowel Sounds
Rectal: Deferred by Provider
Musculoskeletal: No Clubbing, No Cyanosis and No Edema
Skin: Negative Rash
Neuro: Nonfocal/Grossly Intact
Anticipated Discharge: > 48 hours
Subjective/Interval History
-
Date of Service: February 09, 2024
has some pain
Objective Data
-
Vital Signs:
Vital Signs
Temp Pulse Resp BP Pulse Ox
97.8 F 97 16 128/77 94
02/09/24 07:00 02/09/24 07:00 02/09/24 07:00 02/09/24 07:00 02/09/24 07:00
I&O
02/08/24 02/09/24 02/10/24
06:59 06:59 06:59
Intake Total 720 / 720 1740 / 1740
Balance 720 / 720 1740 / 1740
[2024-02-09 11:46] LABS: Glucose - Point of Care 149 mg/dl (70-99)
[2024-02-09 17:08] LABS: Glucose - Point of Care 200 mg/dl (70-99)
[2024-02-09] MEDS: LIPITOR 20 MG PO (17:19)
[2024-02-09] MEDS: NOVOLOG FLEXPEN-MODERATE RESISTANCE 3 UNITS SC (17:19)
[2024-02-09 21:53] LABS: Glucose - Point of Care 114 mg/dl (70-99)
[2024-02-09] MEDS: LANTUS 0.280000000000000027 UNITS SC (22:03)
[2024-02-10] VITALS (13 sets, daily range): BP systolic 121–179; BP diastolic 66–87
[2024-02-10] MEDS: DILAUDID 0.5 MG IV ×3 (05:03→23:25)
[2024-02-10] MEDS: ZOFRAN 4 MG IV ×2 (05:12→23:27)
[2024-02-10 05:44] LABS: % Basophils 0.5 % (0-2); % Eosinophils 0.6 % (0-6); % Immature Granulocytes 0.3 % (0-0.5); % Monocytes 8.9 % (1.7-9.3); % Neutrophils 66.7 % (42.2-75.2); Absolute Basophils 0.1 10^3/uL (0-0.2); Absolute Eosinophils 0.1 10^3/uL (0-0.7); Absolute Lymphocytes 2.9 10^3/uL (1.2-3.4); Absolute Monocytes 1.1 10^3/uL (0.1-0.6); Absolute Neutrophils 8.5 10^3/uL (1.4-6.5); Hematocrit 43.1 % (37.0-47.0); Mean Corp Hgb Conc. 32.5 g/dL (33.0-37.0); Mean Corpuscular Hgb 28.1 pg (27.0-31.0); Mean Corpuscular Volume 86.4 fL (81.0-99.0); Mean Platelet Volume 10.1 fL (7.4-10.4); Nucleated Red Blood Cells % 0 %; Platelet Count 321 10^3/uL (130-400); Red Blood Cell Count 4.99 10^6/uL (4.20-5.40); Red Cell Dist. Width 13.3 % (11.5-14.5); White Blood Cell Count 12.7 10^3/uL (4.8-10.8)
[2024-02-10 06:00] LABS: INR 0.98; PT 12.8 Sec (11.4-14.6)
[2024-02-10 06:00] LABS: Glucose - Point of Care 155 mg/dl (70-99)
[2024-02-10 06:01] LABS: APTT 34.5 Sec (23.4-35.0)
[2024-02-10 06:10] LABS: Blood Urea Nitrogen 16 mg/dl (7-17); Calcium 10.4 mg/dl (8.4-10.2); Carbon Dioxide 31 mmol/L (22-30); Chloride 96 mmol/L (98-107); Estimated Creatinine Clearance 87 ml/min; Glucose 134 mg/dl (70-99); Potassium 4.8 mmol/L (3.5-5.1); Sodium 139 mmol/L (135-145); eGFR > 60.00
[2024-02-10] MEDS: NOVOLOG FLEXPEN-MODERATE RESISTANCE 1 UNITS SC ×2 (06:15→12:32)
[2024-02-10] MEDS: NOVOLOG FLEXPEN SC ×3 (06:50→16:35)
[2024-02-10] MEDS: MIRALAX PO (06:52)
[2024-02-10] MEDS: LEXAPRO 5 MG PO (08:15)
[2024-02-10] MEDS: PROTONIX 40 MG PO (08:15)
[2024-02-10] MEDS: GLUCOPHAGE XR EXTENDED RELEASE 500 MG PO (08:15)
[2024-02-10] MEDS: NORVASC 5 MG PO ×2 (08:16→23:49)
[2024-02-10] MEDS: ZESTRIL 20 MG PO ×2 (08:16→23:49)
[2024-02-10] MEDS: DESENEX/MITRAZOL/ZEASORB 1 APPLIC TOPICAL ×2 (08:17→23:49)
[2024-02-10] MEDS: COLACE PO ×2 (08:17→23:12)
--- NOTE | 2024-02-10 09:49 | W.PN.UPDATE ---
Update Note
Progress Note Update
patient resting comfortably. Will remain NPO for surgery later today via Dr. Marques. Surgical and blood consents on the patient's chart. Glucose this AM 155. Will follow
[2024-02-10 12:12] LABS: Glucose - Point of Care 150 mg/dl (70-99)
--- NOTE | 2024-02-10 14:35 | CM ---
Strict non-weightbearing of RLE. For R hip ORIF this afternoon. Anticipate SNF at [facility]. Referral placed.
--- NOTE | 2024-02-10 15:05 | W.PN.HOSP.TC ---
Today's Communication/Plan
-
Pending the OR for ORIF.
Remains n.p.o. with insulin dose adjusted.
Assessment / Plan
Assessment / Plan
IMPRESSION:
Status post mechanical fall with comminuted fracture of the distal right tibia and fibula.
Conditions prior to admission:
IDDM.
Essential hypertension
Obesity
PLAN:
Right distal tibia and fibula fracture
Status post Ex fix application of open ankle with incisions and debridement on 02/02
Strict nonweightbearing on right lower extremity
Pain control
Perioperative antibiotics for 24 hours.
ORIF for Friday 02/09
ex-fix in place
IDDM
Noted with hyperglycemia upon admission.
Hg A1c 11
Adjust insulin dose with hyperglycemia; dec overnight since NPO past midnight for OR tomorrow
Reintroduce metformin
Essential hypertension
Elevated BP likely function of pain
Increase amlodipine and lisinopril. Continue IV labetalol
Monitor blood pressure trend.
DVT prophylaxis to be determined post operatively
Full code.
Anticipated Discharge: > 48 hours
Subjective/Interval History
-
Date of Service: February 10, 2024
Objective Data
-
Labs:
Laboratory Results
02/10/24
04:40
WBC 12.7 H
Hgb 14.0
Hct 43.1
Plt Count 321 D
PT 12.8
INR 0.98
APTT 34.5
Sodium 139
Potassium 4.8
Chloride 96 L
Carbon Dioxide 31 H
BUN 16
Creatinine 0.7
Glucose 134 H
Calcium 10.4 H
Vital Signs:
Vital Signs
Temp Pulse Resp BP Pulse Ox
98.5 F 94 17 142/76 93
02/10/24 11:00 05/13/24 11:00 02/10/24 11:00 02/10/24 11:00 02/10/24 11:00
I&O
02/09/24 02/10/24 02/11/24
06:59 06:59 06:59
Intake Total 1740 / 1740 1260 / 1260 480 / 480
Balance 1740 / 1740 1260 / 1260 480 / 480
Physical Exam
-
General: Well Developed and No Apparent Distress
HEENT: Normocephalic, Atraumatic and Moist Mucous Membranes
Respiratory: Clear to Auscultation
Cardiac: Regular Rhythm and S1/S2; Negative Murmur, Rub or Gallop
GI: Soft, Nontender, Nondistended and Normal Bowel Sounds; Negative Organomegaly
Rectal: Deferred by Provider
Musculoskeletal: No Clubbing, No Cyanosis and No Edema
Skin: Negative Rash
Neuro: Nonfocal/Grossly Intact
[2024-02-10] MEDS: GLUCOPHAGE XR EXTENDED RELEASE PO (19:30)
[2024-02-10] MEDS: NOVOLOG FLEXPEN-MODERATE RESISTANCE SC (19:30)
--- NOTE | 2024-02-10 19:45 | W.PN.UPDATE ---
Update Note
Progress Note Update
s/p ex fix removal, ankle ORIF with tibial plafond injury and open fracture washout
-Strict NWB RLE
-ABx x 24 hours per scip protocol
-Dressings C/D/I
-PT/OT consult
-Okay to D/C after Abx
[2024-02-10 20:40] LABS: Glucose - Point of Care 189 mg/dl (70-99)
--- NOTE | 2024-02-10 23:20 | PTCARENOTE ---
Received telephone report from QUALITY TECHNICIANRODOLFO Montemayor at 23:05; patient arrived @23:20 on stretcher on 4L O2, (R) leg carolyn wrap and splint c/d/i, patient complaining of pain to RLE at a level 8 and slight nausea (see MAR); VSS.
[2024-02-10 23:23] LABS: Glucose - Point of Care 201 mg/dl (70-99)
[2024-02-10] MEDS: LANTUS 0.280000000000000027 UNITS SC (23:27)
[2024-02-10] MEDS: COLACE 100 MG PO (23:48)
[2024-02-10] MEDS: LIPITOR 20 MG PO (23:48)
[2024-02-10] MEDS: HEPARIN 5000 UNITS SC (23:50)
[2024-02-11] VITALS (8 sets, daily range): BP systolic 93–180; BP diastolic 51–88
[2024-02-11] MEDS: LIPITOR PO (00:05)
[2024-02-11] MEDS: NORVASC PO (00:06)
[2024-02-11] MEDS: HEPARIN SC (00:06)
[2024-02-11] MEDS: ZESTRIL PO (00:07)
[2024-02-11] MEDS: NOVOLOG FLEXPEN-MODERATE RESISTANCE SC ×2 (00:09→17:36)
[2024-02-11] MEDS: ANCEF 5 IV ×2 (00:14→08:18)
[2024-02-11] MEDS: DILAUDID 0.5 MG IV ×4 (03:26→20:51)
--- NOTE | 2024-02-11 06:54 | W.PN.ORTHO ---
Today's Communication / Plan
-
PT/OT
Strict nonweightbearing right lower extremity
Ice with elevation to control swelling and pain
ASA for DVT prophylaxis
Antibiotics for 24 hours
[facility] facility once medically stable
Return to office 2 weeks postop for suture removal
Assessment
.
Distal Motor Intact: Yes
Dressing:
Clean, dry and intact.
Plan
.
Surgery / Date: R ankle removal Ex-Fix-ORIF 02/09 [facility]
DVT Prophylaxis: Aspirin
Activity:
Out of bed.
PT/OT
Discharge Plan: SNF
Subjective
.
.:
Patient resting comfortably.
Vital Signs and Labs
.
Vital Signs and Labs:
Lab Results
02/10/24 04:40
02/10/24 04:40
Temp Pulse Resp BP Pulse Ox
98.2 F 97 16 157/78 95
02/11/24 03:05 02/11/24 03:05 02/11/24 03:05 02/11/24 03:05 02/11/24 03:05
PT 12.8 Sec (11.4-14.6) 02/10/24 04:40
INR 0.98 02/10/24 04:40
[2024-02-11 07:48] LABS: Glucose - Point of Care 171 mg/dl (70-99)
[2024-02-11] MEDS: PROTONIX 40 MG PO (08:17)
[2024-02-11] MEDS: HEPARIN 5000 UNITS SC ×2 (08:17→20:59)
[2024-02-11] MEDS: ZESTRIL 20 MG PO ×2 (08:17→20:57)
[2024-02-11] MEDS: COLACE 100 MG PO ×2 (08:17→20:58)
[2024-02-11] MEDS: NORVASC 5 MG PO ×2 (08:17→20:59)
[2024-02-11] MEDS: GLUCOPHAGE XR EXTENDED RELEASE 500 MG PO ×2 (08:17→17:35)
[2024-02-11] MEDS: LEXAPRO 5 MG PO (08:17)
[2024-02-11] MEDS: NOVOLOG FLEXPEN-MODERATE RESISTANCE 1 UNITS SC ×2 (08:18→12:27)
[2024-02-11] MEDS: NOVOLOG FLEXPEN 15 UNITS SC ×3 (08:19→17:36)
[2024-02-11] MEDS: TRANDATE 10 MG IV (08:20)
[2024-02-11] MEDS: DESENEX/MITRAZOL/ZEASORB 1 APPLIC TOPICAL ×2 (08:22→20:58)
[2024-02-11] MEDS: MIRALAX PO (08:23)
[2024-02-11] MEDS: TRANDATE 100 MG PO ×2 (09:16→20:59)
[2024-02-11] MEDS: ROXICODONE 5 MG PO ×3 (11:05→23:05)
[2024-02-11 12:22] LABS: Glucose - Point of Care 180 mg/dl (70-99)
--- NOTE | 2024-02-11 13:22 | W.PN.HOSP.TC ---
Today's Communication/Plan
-
Adjust analgesic regimen with addition of oxycodone
Physical therapy evaluation
DVT prophylaxis with Lovenox.
Reintroduce full dose of insulin and monitor blood glucose.
Adjust antihypertensive regimen.
Discharge planning to [facility] facility
Assessment / Plan
Assessment / Plan
IMPRESSION:
Status post mechanical fall with comminuted fracture of the distal right tibia and fibula.
Conditions prior to admission:
IDDM.
Essential hypertension
Obesity
PLAN:
Right distal tibia and fibula fracture
Status post Ex fix application of open ankle with incisions and debridement on 02/02
Status post ORIF on 02/09
Strict nonweightbearing on right lower extremity
Pain control
Perioperative antibiotics for 24 hours.
Physical therapy
DVT prophylaxis with Lovenox (patient referred to tinnitus been on aspirin)
IDDM
Noted with hyperglycemia upon admission.
Hg A1c 11
Adjust insulin dose with hyperglycemia; dec overnight since NPO past midnight for OR tomorrow
Reintroduce metformin
Essential hypertension
Elevated BP likely partially a function of pain
Increase amlodipine and lisinopril.
Check renew/ARR
Add oral labetalol 100 mg twice daily
DVT prophylaxis to be determined post operatively
Full code.
Anticipated Discharge: 24 - 48 hours
Subjective/Interval History
-
Date of Service: February 11, 2024
Objective Data
-
Vital Signs:
Vital Signs
Temp Pulse Resp BP Pulse Ox
98.5 F 96 19 113/59 96
02/11/24 11:16 02/11/24 11:16 02/11/24 11:16 02/11/24 11:16 02/11/24 11:16
I&O
02/10/24 02/11/24 02/12/24
06:59 06:59 06:59
Intake Total 1260 / 1260 1300 / 1300
Balance 1260 / 1260 1300 / 1300
Physical Exam
-
General: Well Developed and No Apparent Distress
HEENT: Normocephalic, Atraumatic and Moist Mucous Membranes
Respiratory: Clear to Auscultation
Cardiac: Regular Rhythm and S1/S2; Negative Murmur, Rub or Gallop
GI: Soft, Nontender, Nondistended and Normal Bowel Sounds; Negative Organomegaly
Rectal: Deferred by Provider
Musculoskeletal: No Clubbing, No Cyanosis and No Edema
Skin: Negative Rash
Neuro: Nonfocal/Grossly Intact
--- NOTE | 2024-02-11 13:54 | CM ---
POD #1. Strict nonweightbearing RLE. Therapy recommendation for STR. [facility]. Requires Insurance Auth. Will initiate auth.
[2024-02-11 17:30] LABS: Glucose - Point of Care 134 mg/dl (70-99)
[2024-02-11] MEDS: LOVENOX 40 MG SC (17:35)
[2024-02-11] MEDS: LIPITOR 20 MG PO (17:35)
[2024-02-11 21:22] LABS: Glucose - Point of Care 103 mg/dl (70-99)
[2024-02-11] MEDS: LANTUS 0.479999999999999982 UNITS SC (21:32)
[2024-02-11] MEDS: FLEXERIL 5 MG PO (23:04)
[2024-02-12] VITALS (7 sets, daily range): BP systolic 108–138; BP diastolic 55–66; PULSE 94; O2SAT 94
--- NOTE | 2024-02-12 03:29 | DOWNTIME ---
There was a [employer] Downtime on 02/11/2024 from 0100 to 02/12/2024 at 0300. Downtime documentation of patient's care, including medication administrations, has been reconciled in the electronic record per guidelines. Refer to the
patient's paper chart under the miscellaneous tab to see printed paper medication records and downtime forms.
[2024-02-12] MEDS: ROXICODONE 5 MG PO ×3 (04:56→21:03)
--- NOTE | 2024-02-12 07:38 | W.PN.ORTHO ---
Today's Communication / Plan
-
PT/OT
Strict nonweightbearing right lower extremity
Ice with elevation to control swelling and pain
Reports allergy with ASA- abnormal sensation in ears; can do LMWH or as recommended by primary.
Antibiotics for 24 hours
[facility] facility once medically stable
Return to office 2 weeks postop for suture removal
Assessment
.
Distal Motor Intact: Yes
Dressing:
Clean, dry and intact.
Plan
.
Surgery / Date: R ankle removal Ex-Fix-ORIF 02/09 [facility]
Activity:
Out of bed.
PT/OT
Subjective
.
.:
Patient resting comfortably.
Vital Signs and Labs
.
Vital Signs and Labs:
Lab Results
02/10/24 04:40
02/10/24 04:40
Temp Pulse Resp BP Pulse Ox
98.4 F 83 22 108/55 93
02/12/24 04:22 02/12/24 04:22 02/12/24 04:22 02/12/24 04:22 02/12/24 04:22
PT 12.8 Sec (11.4-14.6) 02/10/24 04:40
INR 0.98 02/10/24 04:40
[2024-02-12 07:46] LABS: Glucose - Point of Care 144 mg/dl (70-99)
[2024-02-12] MEDS: NOVOLOG FLEXPEN 15 UNITS SC ×3 (08:18→17:09)
[2024-02-12] MEDS: NOVOLOG FLEXPEN-MODERATE RESISTANCE SC ×2 (08:19→17:10)
[2024-02-12] MEDS: HEPARIN 5000 UNITS SC (08:19)
[2024-02-12] MEDS: TRANDATE 100 MG PO ×2 (08:21→19:51)
[2024-02-12] MEDS: LEXAPRO 5 MG PO (08:21)
[2024-02-12] MEDS: COLACE 100 MG PO ×2 (08:21→19:51)
[2024-02-12] MEDS: PROTONIX 40 MG PO (08:21)
[2024-02-12] MEDS: ZESTRIL 20 MG PO ×2 (08:21→19:51)
[2024-02-12] MEDS: NORVASC 5 MG PO ×2 (08:21→19:50)
[2024-02-12] MEDS: MIRALAX PO (08:22)
[2024-02-12] MEDS: DESENEX/MITRAZOL/ZEASORB 1 APPLIC TOPICAL ×2 (08:22→19:50)
[2024-02-12] MEDS: GLUCOPHAGE XR EXTENDED RELEASE 500 MG PO ×2 (08:24→17:08)
[2024-02-12] MEDS: DILAUDID 0.5 MG IV (11:26)
--- NOTE | 2024-02-12 12:26 | W.DS.TRANS ---
DC Summary - [employer]
-
Discharge Instructions:
Discharge Diagnosis/Procedures IMPRESSION:
Status post mechanical fall with comminuted
fracture of the distal right tibia and fibula.
Conditions prior to admission:
IDDM.
Essential hypertension
Obesity
Diet Diabetic, Carb Controlled
Instructions:
Stand-Alone Forms:
Changes to Home Medications: Yes
Discharge Medications:
DC Medications w/original date entered in [employer]
escitalopram oxalate 5 mg tablet (Lexapro) 5 mg PO DAILY Mental Health/Anxiety 01/12/23
atorvastatin 20 mg tablet (Lipitor) 20 mg PO QPM 02/03/24
metformin 500 mg tablet,extended release 24hr (osmotic) 500 mg PO BID@0800,1700 Diabetes 02/03/24
Insulin Glargine Lantus [Lantus] 48 units As Directed mls/hr SC HS 02/12/24
acetaminophen 325 mg tablet 650 mg (2 x 325 mg) PO Q4HPRN PRN moderate pain #60 tabs 02/12/24
amlodipine 5 mg tablet 5 mg PO BID #60 tabs 02/12/24
docusate sodium 100 mg capsule 100 mg PO BID #60 caps 02/12/24
enoxaparin 40 mg/0.4 mL subcutaneous syringe 40 mg (0.4 mL) SC QPM #28 mL 02/12/24
insulin aspart U-100 100 unit/mL (3 mL) subcutaneous pen 15 unit (0.15 mL) SC AC #1 mL 02/12/24
labetalol 100 mg tablet 100 mg PO BID #60 tabs 02/12/24
lisinopril 20 mg tablet 20 mg PO BID #60 tabs 02/12/24
oxycodone 5 mg tablet 5 mg PO Q4HPRN PRN severe pain #14 tabs 02/12/24
pantoprazole 40 mg tablet,delayed release 40 mg PO DAILY #30 tabs 02/12/24
polyethylene glycol 3350 17 gram oral powder packet (HealthyLax) 17 g PO DAILY #30 ea 02/12/24
Home Medication Changes
All of above
Pending Results: Yes
Additional Pending Results:
Plasma renin and ARR
Total time spent discharging patient (in min): 45
[2024-02-12 12:28] LABS: Glucose - Point of Care 194 mg/dl (70-99)
[2024-02-12] MEDS: NOVOLOG FLEXPEN-MODERATE RESISTANCE 1 UNITS SC (13:04)
--- NOTE | 2024-02-12 13:24 | W.PN.HOSP.TC ---
Today's Communication/Plan
-
Continue physical therapy
Medically optimized for discharge to group home facility/rehab.
Assessment / Plan
Assessment / Plan
IMPRESSION:
Status post mechanical fall with comminuted fracture of the distal right tibia and fibula.
Conditions prior to admission:
IDDM.
Essential hypertension
Obesity
PLAN:
Right distal tibia and fibula fracture
Status post Ex fix application of open ankle with incisions and debridement on 02/02
Status post ORIF on 02/09
Strict nonweightbearing on right lower extremity
Pain control
Perioperative antibiotics for 24 hours.
Physical therapy
DVT prophylaxis with Lovenox (patient referred to tinnitus been on aspirin)
IDDM
Noted with hyperglycemia upon admission.
Hg A1c 11
Adjust insulin dose with hyperglycemia; dec overnight since NPO past midnight for OR tomorrow
Reintroduce metformin
Essential hypertension
Elevated BP likely partially a function of pain
Increase amlodipine and lisinopril.
Check renew/ARR
Add oral labetalol 100 mg twice daily
DVT prophylaxis to be determined post operatively
Full code.
Anticipated Discharge: Within 24 hours
Subjective/Interval History
-
Date of Service: February 12, 2024
Objective Data
-
Vital Signs:
Vital Signs
Temp Pulse Resp BP Pulse Ox
99.1 F 86 19 119/59 93
02/12/24 11:39 02/12/24 11:39 02/12/24 11:39 02/12/24 11:39 02/12/24 11:39
I&O
02/11/24 02/12/24 02/13/24
06:59 06:59 06:59
Intake Total 1300 / 1300 1200 / 1200
Balance 1300 / 1300 1200 / 1200
Physical Exam
-
General: Well Developed and No Apparent Distress
HEENT: Normocephalic, Atraumatic and Moist Mucous Membranes
Respiratory: Clear to Auscultation
Cardiac: Regular Rhythm and S1/S2; Negative Murmur, Rub or Gallop
GI: Soft, Nontender, Nondistended and Normal Bowel Sounds; Negative Organomegaly
Rectal: Deferred by Provider
Musculoskeletal: No Clubbing, No Cyanosis and No Edema
Skin: Negative Rash
Neuro: Nonfocal/Grossly Intact
[2024-02-12] MEDS: LOVENOX SC (13:27)
--- NOTE | 2024-02-12 13:52 | CM ---
Discharge Plan of Care: STR at [facility]. Insurance auth initiated. Pending auth # [id number]. All documentation forwarded this AM. Awaiting determination. Patient, aware.
[2024-02-12 17:01] LABS: Glucose - Point of Care 108 mg/dl (70-99)
[2024-02-12] MEDS: LIPITOR 20 MG PO (17:09)
[2024-02-12 18:40] LABS: Glucose - Point of Care 66 mg/dl (70-99)
[2024-02-12 18:57] LABS: Glucose - Point of Care 73 mg/dl (70-99)
[2024-02-12] MEDS: LANTUS 0.479999999999999982 UNITS SC (21:05)
[2024-02-12 21:15] LABS: Glucose - Point of Care 119 mg/dl (70-99)
[2024-02-13] MEDS: DILAUDID 0.5 MG IV (01:03)
[2024-02-13 03:00] VITALS: BP 112/64
[2024-02-13 07:40] LABS: Glucose - Point of Care 115 mg/dl (70-99)
[2024-02-13 07:42] VITALS: BP 153/71
[2024-02-13] MEDS: ROXICODONE 5 MG PO ×2 (08:10→14:15)
[2024-02-13] MEDS: LEXAPRO 5 MG PO (08:12)
[2024-02-13] MEDS: ZESTRIL 20 MG PO (08:12)
[2024-02-13] MEDS: TRANDATE 100 MG PO (08:12)
[2024-02-13] MEDS: PROTONIX 40 MG PO (08:13)
[2024-02-13] MEDS: GLUCOPHAGE XR EXTENDED RELEASE 500 MG PO ×2 (08:13→17:19)
[2024-02-13] MEDS: NORVASC 5 MG PO (08:13)
[2024-02-13] MEDS: COLACE 100 MG PO (08:14)
[2024-02-13] MEDS: MIRALAX 17 GRAMS PO (08:14)
[2024-02-13] MEDS: NOVOLOG FLEXPEN-MODERATE RESISTANCE SC (08:14)
[2024-02-13] MEDS: NOVOLOG FLEXPEN 15 UNITS SC ×3 (08:14→17:18)
[2024-02-13] MEDS: DESENEX/MITRAZOL/ZEASORB 1 APPLIC TOPICAL (08:15)
--- NOTE | 2024-02-13 10:18 | CM ---
Addendum entered by Aster Andrade 02/13/24 12:09:
Met with patient in her room; OOB in chair
Patient agreeable with discharge plan when Authorization is approved
Addendum entered by Aster Andrade 02/13/24 10:21:
Per Attending, patient is medially stable for discharge
Original Note:
Plan: discharge to [facility] when medically stable; insurance Authorization approved
Contacted Anthony via phone; Authorization submission is in review
[2024-02-13 11:36] VITALS: BP 99/56
[2024-02-13 11:46] LABS: Glucose - Point of Care 179 mg/dl (70-99)
[2024-02-13] MEDS: NOVOLOG FLEXPEN-MODERATE RESISTANCE 1 UNITS SC ×2 (12:07→17:18)
--- NOTE | 2024-02-13 12:58 | CM ---
Received insurance auth from [facility]. Auth # [id number], approved from 02/13/24 through 02/20/24, NRD 02/20/24. Concurrent reviews to . Patient, MD, Team and [facility] liaison notified.
Patient has been medically cleared for discharge to [facility] for halfway and rehab services. Auth obtained. Transport request has been sent.
NURSE TO NURSE REPORT # [phone]
FAX # [phone]
[2024-02-13 15:40] VITALS: BP 141/62
[2024-02-13] MEDS: TYLENOL 650 MG PO (15:41)
[2024-02-13] MEDS: FLUSH (NSS) 2 FLUSH IV (15:42)
[2024-02-13] MEDS: ZOFRAN 4 MG IV (15:42)
[2024-02-13] MEDS: LIPITOR 20 MG PO (16:39)
[2024-02-13] MEDS: LOVENOX 40 MG SC (16:40)
[2024-02-13] MEDS: DILAUDID 1 MG IV (16:40)
[2024-02-13 17:03] LABS: Glucose - Point of Care 153 mg/dl (70-99)
[2024-02-14 10:30] LABS: Aldosterone, Serum 4.1 ng/dL; Aldosterone/Renin Activ Ratio 2.7 ratio (<=25.0); Renin Activity Results 1.5 ng/mL/hr
== END 2024-02-13 17:48 | DRG 494 ==
LOC: 2 SOUTH 11:36
PROVIDERS: Internal Medicine; Physician Assistant; ADMITTING PHYSICIAN Internal Medicine; CONSULT PHYSICIAN Student in an Organized Health Care Education/Training Program; EMERGENCY PHYSICIAN Emergency Medicine; FAMILY PHYSICIAN Nurse Practitioner Family
PROC: 0SBF0ZZ Excision of Right Ankle Joint, Open Approach (ICD-10-PCS; 2024-02-03)
PROC: 0QSG35Z Reposition Right Tibia with External Fixation Device, Percutaneous Approach (ICD-10-PCS; 2024-02-03)
PROC: 0QSG04Z Reposition Right Tibia with Internal Fixation Device, Open Approach (ICD-10-PCS; 2024-02-10)
PROC: 0SPFX5Z Removal of External Fixation Device from Right Ankle Joint, External Approach (ICD-10-PCS; 2024-02-10)
DX: S82.851B Displaced trimalleolar fracture of right lower leg, initial encounter for open fracture type I or II (principal); E11.65 Type 2 diabetes mellitus with hyperglycemia; F32.A Depression, unspecified; I10 Essential (primary) hypertension; F41.9 Anxiety disorder, unspecified; E66.9 Obesity, unspecified; W18.09XA Striking against other object with subsequent fall, initial encounter; Y93.01 Activity, walking, marching and hiking; Y92.003 Bedroom of unspecified non-institutional (private) residence as the place of occurrence of the external cause; Z91.040 Latex allergy status; Z91.048 Other nonmedicinal substance allergy status; Z79.4 Long term (current) use of insulin; Z79.84 Long term (current) use of oral hypoglycemic drugs; Z68.37 Body mass index [BMI] 37.0-37.9, adult; Z87.19 Personal history of other diseases of the digestive system
CPT/HCPCS: 27818; 73590; 73600; 73610; 73700; 76000; 80048; 82088; 82306; 82962; 83036; 84244; 85025; 85610; 85730; 86803; 86850; 86900; 86901; 90715; 96374; 97163; 97167; 97168; 97530; 97535; 99285; C1713

== ENCOUNTER 2024-02-26 21:28 | Emergency (ER) | payer OTHER, SELFPAY ==
[2024-02-26 21:36] VITALS: BP 160/70
[2024-02-26 21:37] VITALS: BP 160/70
[2024-02-26 21:42] VITALS: BMI 41.1
[2024-02-26 21:57] LABS: % Basophils 0.4 % (0-2); % Eosinophils 0.5 % (0-6); % Immature Granulocytes 0.4 % (0-0.5); % Lymphocytes 17.6 % (20.5-51.1); % Monocytes 7.7 % (1.7-9.3); % Neutrophils 73.4 % (42.2-75.2); Absolute Eosinophils 0.1 10^3/uL (0-0.7); Absolute Monocytes 0.9 10^3/uL (0.1-0.6); Absolute Neutrophils 8.4 10^3/uL (1.4-6.5); Hematocrit 34.1 % (37.0-47.0); Hemoglobin 11.7 g/dL (12.0-16.0); Mean Corp Hgb Conc. 34.3 g/dL (33.0-37.0); Mean Corpuscular Hgb 28.3 pg (27.0-31.0); Mean Corpuscular Volume 82.6 fL (81.0-99.0); Mean Platelet Volume 9.7 fL (7.4-10.4); Nucleated Red Blood Cells % 0 %; Platelet Count 360 10^3/uL (130-400); Red Blood Cell Count 4.13 10^6/uL (4.20-5.40); Red Cell Dist. Width 13.7 % (11.5-14.5); White Blood Cell Count 11.4 10^3/uL (4.8-10.8)
[2024-02-26 22:00] VITALS: BP 131/62
[2024-02-26 22:40] LABS: ALT (SGPT) 26 U/L (0-35); AST (SGOT) 25 U/L (14-36); Albumin 3.7 g/dl (3.5-5.0); Alkaline Phosphatase 135 U/L (38-126); Blood Urea Nitrogen 19 mg/dl (7-17); Calcium 9.2 mg/dl (8.4-10.2); Carbon Dioxide 25 mmol/L (22-30); Chloride 102 mmol/L (98-107); Estimated Creatinine Clearance 92 ml/min; Glucose 158 mg/dl (70-99); Potassium 4.1 mmol/L (3.5-5.1); Sodium 136 mmol/L (135-145); Total Bilirubin 0.5 mg/dl (0.2-1.3); Total Protein 6.4 g/dl (6.3-8.2); eGFR > 60.00
--- NOTE | 2024-02-26 22:57 | ED.GENMED ---
History of Present Illness
General
Chief Complaint: Abdominal Symptoms
Source: patient
Exam Limitations: none
Time Seen by Provider: 02/26/24 22:09
Travel History
Have you had any contact with someone who has COVID-19?: No
Do you have any symptoms of coronavirus? Fever > 100 degrees, chills, cough, shortness of breath, sore throat, loss of taste or smell, muscle aches, or headache?: No
Symptoms:: nausea, vomiting, diarrhea, dizziness
History of Present Illness
History of Present Illness:
This is a 63 year old female that comes in with c/o nausea, vomiting and diarrhea. States that she is at [facility] for rehab. States that today around 2pm she was sitting playing bingo when she just felt weird. States that she then went to PT
and after this she laid down and she felt better. States that they brought her dinner in and she started to fell sick. States that they gave her Zofran and laid down again. States that she slept for 1 hour and then got up and tried to eat. States
that she then started with diarrhea and vomiting. States that she feels like she is on a boat when she has her eyes closed. States that they have not been given her medication for pain like they are suppose to and then they give her medication to
close together. Denies any fever, chills, chest pain, SOB, abd pain, headache, urinary burning.
Past History
Past History
ED Past Medical History: NIDDM, Psychiatric (Anxiety, Depression) and Other (Diverticulitis/diverticulosis, ovarian cyst, Colitis, Gastroenteritis, UTI, )
ED Past Surgical History: Appendectomy, Bowel resection, Cholecystectomy and Orthopedic (Gaglian cyst removed from wrist, Right foot surgery)
Social History
Tobacco: Former smoker
Alcohol: None
Drug: None
Personal: Single
Living: jail ([facility] for rehab)
Employment: Not employed
Family History
Family History: Other
Review of Systems
Review of Systems
All Other Systems: ROS reviewed and negative except as documented in HPI and ROS
Constitutional: Reports no symptoms; Denies fever or chills
EENT: Reports no symptoms
Respiratory: Reports no symptoms; Denies cough or trouble breathing
Cardiac: Reports no symptoms; Denies chest pain
ABD/GI: Reports nausea, vomiting and diarrhea; Denies abdominal pain
: Reports no symptoms; Denies dysuria, frequency or urgency
Musculoskeletal: Reports no symptoms
Skin: Reports no symptoms
Neurological: Reports dizzy (feels like she is on a boat with her eyes closed); Denies headache
Psychiatric: Reports no symptoms
Phy Exam
General Physical Exam
General Presentation: no apparent distress
General age: appears stated age
General Skin: warm and dry
General Habitus: normal
General Mental: alert
General Hydration: dry mucous membranes (Slight)
ENT Exam
ENT Exam: TM's normal, pharynx normal and neck supple
Eye Exam
Eye Exam: EOMI
Cardiovascular Exam
Cardiovascular Exam: regular rate/rhythm, no edema, no murmur and normal peripheral pulses
Pulmonary Exam
Pulmonary Exam: lungs clear, no respiratory distress, no rales, chest non tender, no crackles, no rhonchi, no wheezing and no cough
Gastrointestinal Exam
Gastrointestinal Exam: normal bowel sounds, soft, no organomegaly, no pulsatile mass, non distended and tender (RUQ tenderness with palpation)
Musculoskeletal Exam
Musculoskeletal Exam: full ROM and no edema
Skin Exam
Skin Exam: normal color, warm/dry, no rash and no petechia
Psychiatric Exam
Psychiatric Exam: normal mood/affect
Course
Orders/Labs/Results
Orders:
Orders
02/26/24 21:50
CMP [Comprehensive Metabolic Panel] Urgent
Complete Blood Count/With Diff Urgent
02/26/24 22:56
0.9% Sodium Chloride 1000 ml [Nss] 1,000 ml IV BOLUS
Ondansetron Injectable [Zofran] 4 mg IV NOW STA
02/26/24 22:57
Electrocardiogram (*1) Urgent
Reason for Study: QTc Monitoring
EKG- Treatment ONCE
02/27/24 00:21
Ketorolac [Toradol] 30 mg IV NOW STA
Abnormal Lab Results
02/26/24
21:50
WBC 11.4 H 10^3/uL
(4.8-10.8)
RBC 4.13 L 10^6/uL
(4.20-5.40)
Hgb 11.7 L g/dL
(12.0-16.0)
Hct 34.1 L %
(37.0-47.0)
Absolute Neuts (auto) 8.4 H 10^3/uL
(1.4-6.5)
Absolute Monos (auto) 0.9 H 10^3/uL
(0.1-0.6)
Lymphocytes % 17.6 L %
(20.5-51.1)
BUN 19 H mg/dl
(7-17)
Glucose 158 H mg/dl
(70-99)
Alkaline Phosphatase 135 H U/L
(38-126)
02/26/24 21:50
02/26/24 21:50
Leukocytosis, H/H slightly low, dehydration. hyperglycemia, Alk phos elevation.
Vital Signs
Initial and Last Documented VS:
Initial Vital Signs
Pulse Resp BP
87 30 160/70
02/26/24 21:36 02/26/24 21:36 02/26/24 21:36
Last Documented Vital Signs
Temp Pulse Resp BP Pulse Ox
98.4 F 85 20 135/61 96
02/26/24 21:37 02/27/24 00:30 02/27/24 00:30 02/27/24 00:00 02/26/24 21:37
MDM/Problems Addressed
Differential Diagnosis Includes:
VIral GI syndrome. N/V dueto medication
MDM/Problems Addressed:
This is a 63 year old female that is at [facility] for rehab. States that tonight she started with nausea, vomiting, diarrhea. States that they have been giving her her medication late and then sometimes to close to the others.
will check labs, give IV fluids and Zofran.
Back into see patient. patient States that she is feeling better and that she is Hungry. Will give patient some gram crackers and water. Will discharge back to the jail.
Chronic conditions affecting care:
NA
Acute Exacerbation and/or Progression of Chronic Illness:
NA
*Pulse Oximetry
Patient hypoxic: no
*EKG
Interpreted by ED Provider?: Yes
Heart Rate: 87
Rate: normal
Rhythm: sinus
Ona: normal axis
Interval: long QT
QRS Pattern: normal QRS
Ischemia: no ischemia (Checked by Dr. Benz)
*[employer] Tender Interpretation
Rate: normal
Heart Rate: 89
Rhythm: sinus
*Critical Care Note
Total Time (30-74mins, 75-104mins- exclusive of procedures): Not Applicable
ED Attending Note
-
Portions of this chart may have been created with voice recognition software.� Occasional wrong word or��sound alike� substitutions may have occurred due to the inherent limitations of voice recognition software.
Discharge Plan
Departure
Patient Disposition: Alf/SNF
Date of Disposition: 02/27/24
Time of Disposition: 01:35
Patient with high blood pressure during this ER visit?: Yes
Condition: Good
Covid-19: Not Applicable
Discharge Problem:
Nausea & vomiting, Diarrhea
Instructions: Diarrhea in teens and adults, Nausea and Vomiting, Adult (DC), BLOOD PRESSURE
Prescriptions:
No Action
escitalopram oxalate [Lexapro] 5 mg Tablet
5 mg PO DAILY
atorvastatin [Lipitor] 20 mg Tablet
20 mg PO QPM
metformin 500 mg tablet extended release 24hr
500 mg PO BID@0800,1700
polyethylene glycol 3350 [HealthyLax] 17 gram Powder In Packet
17 g PO DAILY Qty: 30 0RF
lisinopril 20 mg Tablet
20 mg PO BID Qty: 60 0RF
amlodipine 5 mg Tablet
5 mg PO BID Qty: 60 0RF
docusate sodium 100 mg Capsule
100 mg PO BID Qty: 60 0RF
enoxaparin 40 mg/0.4 mL Syringe
40 mg SC QPM Qty: 28 0RF
insulin aspart U-100 100 unit/mL (3 mL) Insulin Pen
15 unit SC AC Qty: 1 0RF
Insulin Glargine Lantus [Lantus] 48 UNITS
Subcutaneous Insulin Syringe [Syringe-Insulin] 0 UNIT
As Directed mls/hr SC HS
Ordered By: Kaiser Krueger MD
Last Taken: Unknown
acetaminophen 325 mg Tablet
650 mg PO Q4HPRN PRN (Reason: moderate pain) Qty: 60 0RF
pantoprazole 40 mg Tablet,Delayed Release (Dr/Ec)
40 mg PO DAILY Qty: 30 0RF
labetalol 100 mg Tablet
100 mg PO BID Qty: 60 0RF
oxycodone 5 mg Tablet
5 mg PO Q4HPRN PRN (Reason: severe pain) Qty: 14 0RF
Referrals:
Marek Barrow MD [Family Provider] - Follow up in 2-3 days
Activity Restrictions/Additional Instructions:
As discussed, your blood work shows very slight Dehydration and your WBC are slightly elevated but consistent with prior labs. This may have been a combination of medication on an empty stomach and the narcotic pain medication. Please increase your
water intake to 8-8oz glasses daily. Follow up with the family doctor for recheck. IF YOU HAVE ABDOMINAL PAIN, OR ANY OTHER CONCERNS PLEASE RETURN TO THE EMERGENCY ROOM
Interventions
Interventions:
*Risk Screen - Suicide Last Done: 02/26/24 21:42
*General Assessment Last Done: 02/26/24 21:42
*Neglect/Abuse Screening Last Done: 02/26/24 21:42
ED- Fall Risk Assessment Last Done: 02/26/24 21:42
*ED COVID-19 Vaccine History Last Done: 02/26/24 21:42
MG-Wmnymd-Zxxyempolw Assessment Last Done: 02/26/24 21:42
Discharge Date and Time
Print Language: ESTONIAN
[2024-02-26 23:00] VITALS: BP 154/71
[2024-02-26] MEDS: NSS 1000 IV (23:14)
[2024-02-27] VITALS: BP 135/61
[2024-02-27] MEDS: TORADOL 30 MG IV (00:27)
[2024-02-27 01:00] VITALS: BP 134/57
[2024-02-27 02:00] VITALS: BP 147/67
[2024-02-27 03:00] VITALS: BP 144/70
[2024-02-27 04:00] VITALS: BP 116/55
== END 2024-02-27 04:30 ==
LOC: EMR 21:28
PROVIDERS: Clinical Nurse Specialist Family Health; EMERGENCY PHYSICIAN Emergency Medicine; FAMILY PHYSICIAN Internal Medicine
DX: R11.2 Nausea with vomiting, unspecified (principal); R19.7 Diarrhea, unspecified; R42 Dizziness and giddiness; R03.0 Elevated blood-pressure reading, without diagnosis of hypertension; E86.0 Dehydration; E11.65 Type 2 diabetes mellitus with hyperglycemia; F32.A Depression, unspecified; F41.9 Anxiety disorder, unspecified; K57.90 Diverticulosis of intestine, part unspecified, without perforation or abscess without bleeding; K52.9 Noninfective gastroenteritis and colitis, unspecified; Z87.440 Personal history of urinary (tract) infections; Z87.891 Personal history of nicotine dependence; Z90.49 Acquired absence of other specified parts of digestive tract; Z98.0 Intestinal bypass and anastomosis status; Z88.6 Allergy status to analgesic agent; Z91.040 Latex allergy status; Z91.048 Other nonmedicinal substance allergy status
CPT/HCPCS: 99284; 96374; 96361; 80053; 85025; 93005

== ENCOUNTER → 2024-07-14 12:48 | Outpatient (REF) | payer OTHER, SELFPAY | LOC: WOUND 12:48 | PROVIDERS: ATTENDING PHYSICIAN Surgery; FAMILY PHYSICIAN Nurse Practitioner Family | DX: T81.31XA Disruption of external operation (surgical) wound, not elsewhere classified, initial encounter (principal); L97.312 Non-pressure chronic ulcer of right ankle with fat layer exposed; I87.2 Venous insufficiency (chronic) (peripheral); I73.9 Peripheral vascular disease, unspecified; E11.9 Type 2 diabetes mellitus without complications; F33.9 Major depressive disorder, recurrent, unspecified; I10 Essential (primary) hypertension; Y83.8 Other surgical procedures as the cause of abnormal reaction of the patient, or of later complication, without mention of misadventure at the time of the procedure | CPT/HCPCS: 11042; 99204 ==

== ENCOUNTER 2024-07-14 20:01 | Inpatient (IN) | payer OTHER, SELFPAY ==
[2024-07-14 13:59] VITALS: BP 119/71
--- NOTE | 2024-07-14 14:49 | ED.GENMED ---
History of Present Illness
<Jesica Esparza PA-C - Last Filed: 07/16/24 01:36>
General
Chief Complaint: Musculo-Skeletal Complaint
Source: patient
Exam Limitations: none
Time Seen by Provider: 07/14/24 14:18
Nursing documentation reviewed up to this point in time: agreed with
History of Present Illness
History of Present Illness:
Patient is a 63-year-old female presenting to the emergency department for evaluation of right ankle pain. Patient states that she was getting out of bed Saturday morning when she had acute onset severe pain in her right ankle. She has been unable
to bear weight since. Patient denies any numbness/tingling in right foot.
Patient did sustain an open trimalleolar fracture and dislocation in January 2024 which was repaired by Dr. Marques. Patient has been following closely with his office and was made weightbearing without boot approximately 3 weeks ago. Patient was
healing well until sudden onset pain on Saturday.
Patient is following with wound care for wounds on with medial and lateral malleolus.
Past History
<Jesica Esparza PA-C - Last Filed: 07/16/24 01:36>
Past History
ED Past Medical History: NIDDM, Psychiatric (Anxiety, Depression) and Other (Diverticulitis/diverticulosis, ovarian cyst, Colitis, Gastroenteritis, UTI, )
ED Past Surgical History: Appendectomy, Bowel resection, Cholecystectomy and Orthopedic (Gaglian cyst removed from wrist, Right foot surgery)
Social History
Tobacco: Former smoker
Alcohol: None
Drug: None
Personal: Single
Living: usp ([facility] for rehab)
Employment: Not employed
Family History
Family History: Other
Review of Systems
<Jesica Esparza PA-C - Last Filed: 07/16/24 01:36>
Review of Systems
Allergies reviewed?: Yes
All Other Systems: ROS reviewed and negative except as documented in HPI and ROS
Phy Exam
<Jesica Esparza PA-C - Last Filed: 07/16/24 01:36>
Physical Exam
Physical Exam:
Vitals: Patient's vital signs are stable. Afebrile
General: Patient is well appearing, no acute distress
Skin: Warm and dry, no rashes or lesions
Head: Normocephalic, atraumatic
Throat: Protecting airway
Neck: Normal ROM, no cervical spine tenderness
Cardiac: Regular rate
Pulm: No apparent respiratory distress
Abdomen: Nondistended
Extremities: Small open wounds to right medial and lateral malleolus without significant erythema or red streaking, or purulent drainage. Diffuse pitting edema of right foot and right ankle. Tenderness of right medial malleolus. Achilles intact.
No tenderness at base of right fifth metatarsal, calcaneus, or head of right fibula. Right knee atraumatic full range of motion. Right lower extremity neurovascularly tact
Neuro: Grossly intact
Psychiatric: Normal affect.
Course
<eJsica Esparza PA-C - Last Filed: 07/16/24 01:36>
Orders/Labs/Results
Orders:
Orders
07/14/24 14:04
Foot, Right 3 View [CR Foot - Right Min 3 Views] Urgent
Comment:
Reason For Exam: pain
07/14/24 14:06
Ankle, Right 3 view CR [CR Ankle - Right Min 3 Views *] Urgent
Comment:
Reason For Exam: pain
07/14/24 Dinner
Regular
At Your Request: Full Participation
Does patient need a safe tray?: No
07/14/24 15:21
Acetaminophen [Tylenol] 650 mg PO NOW STA
07/14/24 16:47
Lower Ext Right wo Contrast CT [CT Lower Ext W/o Iv Cont Rt] Urgent
Comment: attn ankle
Reason For Exam: Right ankle pain; diplaced hardware on xray
07/14/24 18:02
Electrocardiogram (*1) Urgent
Reason for Study: Other
Other Reason for Exam: Pre-op
07/14/24 19:22
Admit/Transfer Patient As Directed
Co-Sign Provider:
Level of Care: Inpatient admission
Assign to:: Medical/Surgical
Physician / Group: Tulio Wheeler
Diagnosis: Complex right ankle fracture involving internal fixation.
Reason for Hospitalization: Complex right ankle fracture involving internal fixation.
Expected length of stay greater than two midnights?: Yes
ELOS- Estimated Length of Stay in days: 3
I certify the patient meets the requirements for IP care: Yes
07/14/24 19:23
PRN Pain Medication Management As Directed
May give lesser potent ordered pain med per pt: Yes
preference::
Protocol:: Medication orders for pain may be administered in a
manner that supports deferring to patient preference
when the pt is:
- Requesting an ordered lesser potent pain medication.
Least to most potent pain medications are defined
as: acetaminophen < NSAID < tramadol < opioids
(morphine, oxycodone, hydromorphone).
- Requesting a lesser dose of the same medication IF
ORDERED.
- Requesting a less intrusive route of administration
if both routes are prescribed by the provider (PO <
IV).
07/14/24 19:25
Code Status As Directed
Resuscitation Status: Full Code
07/14/24 20:41
CRP [C-Reactive Protein] Urgent
Complete Blood Count/With Diff Urgent
Comprehensive Metabolic Panel Urgent
ESR [Erythrocyte Sed Rate] Urgent
Hemoglobin A1c [Glycohemoglobin (HgbA1c)] Urgent
PTT Urgent
Prothrombin Time Urgent
07/14/24 21:08
Acetaminophen [Tylenol] 650 mg PO Q4HPRN PRN
Amlodipine [Norvasc] 5 mg PO BID
Labetalol [Trandate] 100 mg PO BID
Lisinopril [Zestril] 20 mg PO BID
Oxycodone [Roxicodone] 5 mg PO Q4HPRN PRN
07/14/24 21:08
PODIATRY CONSULT Routine
Consulting Provider: Rock Torres
Was physician already notified: Yes
Activity As Directed
Activity Level: With Assistance
Comment: NWB RLE
Pneumatic Compression Sleeves As Directed
Type: Knee high
Vital Signs As Directed
Frequency: Per unit guidelines
DX Deep Vein Thrombosis Video Routine
07/14/24 22:00
Atorvastatin [Lipitor] 20 mg PO HS
Gabapentin [Neurontin] 300 mg PO HS
07/15/24 05:12
Basic Metabolic Panel IN AM
Complete Blood Count/With Diff IN AM
07/15/24 Breakfast
NPO
Allow oral meds: Yes
Allow clear liquids: 4hrs prior to procedure
Comment: may have unrestricted clear liquid up to 4 hrs prior to scheduled procedure
07/15/24 07:30
Insulin Aspart Pen [Novolog Flexpen] 15 units SC AC
07/15/24 08:00
Calcium Carbonate/Vitamin D3 [Oscal 500 + D] 500 mg PO DAILY
Cholecalciferol (Vitamin D3) [VITAMIN D3 (cholecalciferol)] 50 mcg PO DAILY
Duloxetine Delayed Release [Cymbalta Delayed Release] 60 mg PO DAILY
Multivitamin [Theragran] 1 tablet PO DAILY
Pantoprazole [Protonix] 40 mg PO DAILY
07/16/24 06:00
Basic Metabolic Panel IN AM
Complete Blood Count/With Diff IN AM
07/17/24 06:00
Basic Metabolic Panel IN AM
Complete Blood Count/With Diff IN AM
Vital Signs
Initial and Last Documented VS:
Initial Vital Signs
Temp Pulse Resp BP Pulse Ox
98.4 F 87 18 119/71 95
07/14/24 13:59 07/14/24 13:59 07/14/24 13:59 07/14/24 13:59 07/14/24 13:59
Last Documented Vital Signs
Temp Pulse Resp BP Pulse Ox
98.3 F 82 18 112/59 94
07/16/24 00:35 07/16/24 00:35 07/16/24 00:35 07/16/24 00:35 07/16/24 00:35
<Raza Gatica MD - Last Filed: 07/14/24 20:08>
Orders/Labs/Results
Orders:
Orders
07/14/24 14:04
Foot, Right 3 View [CR Foot - Right Min 3 Views] Urgent
Comment:
Reason For Exam: pain
07/14/24 14:06
Ankle, Right 3 view CR [CR Ankle - Right Min 3 Views *] Urgent
Comment:
Reason For Exam: pain
07/14/24 Dinner
Regular
At Your Request: Full Participation
Does patient need a safe tray?: No
07/14/24 15:21
Acetaminophen [Tylenol] 650 mg PO NOW STA
07/14/24 16:47
Lower Ext Right wo Contrast CT [CT Lower Ext W/o Iv Cont Rt] Urgent
Comment: attn ankle
Reason For Exam: Right ankle pain; diplaced hardware on xray
07/14/24 18:02
Electrocardiogram (*1) Urgent
Reason for Study: Other
Other Reason for Exam: Pre-op
07/14/24 19:22
Admit/Transfer Patient As Directed
Co-Sign Provider:
Level of Care: Inpatient admission
Assign to:: Medical/Surgical
Physician / Group: Tulio Wheeler
Diagnosis: Complex right ankle fracture involving internal fixation.
Reason for Hospitalization: Complex right ankle fracture involving internal fixation.
Expected length of stay greater than two midnights?: Yes
ELOS- Estimated Length of Stay in days: 3
I certify the patient meets the requirements for IP care: Yes
07/14/24 19:23
PRN Pain Medication Management As Directed
May give lesser potent ordered pain med per pt: Yes
preference::
Protocol:: Medication orders for pain may be administered in a
manner that supports deferring to patient preference
when the pt is:
- Requesting an ordered lesser potent pain medication.
Least to most potent pain medications are defined
as: acetaminophen < NSAID < tramadol < opioids
(morphine, oxycodone, hydromorphone).
- Requesting a lesser dose of the same medication IF
ORDERED.
- Requesting a less intrusive route of administration
if both routes are prescribed by the provider (PO <
IV).
07/14/24 19:25
Code Status As Directed
Resuscitation Status: Full Code
07/14/24 20:41
CRP [C-Reactive Protein] Urgent
Complete Blood Count/With Diff Urgent
Comprehensive Metabolic Panel Urgent
ESR [Erythrocyte Sed Rate] Urgent
Hemoglobin A1c [Glycohemoglobin (HgbA1c)] Urgent
PTT Urgent
Prothrombin Time Urgent
07/14/24 21:08
Acetaminophen [Tylenol] 650 mg PO Q4HPRN PRN
Amlodipine [Norvasc] 5 mg PO BID
Labetalol [Trandate] 100 mg PO BID
Lisinopril [Zestril] 20 mg PO BID
Oxycodone [Roxicodone] 5 mg PO Q4HPRN PRN
07/14/24 21:08
PODIATRY CONSULT Routine
Consulting Provider: Rock Torres
Was physician already notified: Yes
Activity As Directed
Activity Level: With Assistance
Comment: NWB RLE
Pneumatic Compression Sleeves As Directed
Type: Knee high
Vital Signs As Directed
Frequency: Per unit guidelines
DX Deep Vein Thrombosis Video Routine
07/14/24 22:00
Atorvastatin [Lipitor] 20 mg PO HS
Gabapentin [Neurontin] 300 mg PO HS
07/15/24 05:12
Basic Metabolic Panel IN AM
Complete Blood Count/With Diff IN AM
07/15/24 Breakfast
NPO
Allow oral meds: Yes
Allow clear liquids: 4hrs prior to procedure
Comment: may have unrestricted clear liquid up to 4 hrs prior to scheduled procedure
07/15/24 07:30
Insulin Aspart Pen [Novolog Flexpen] 15 units SC AC
07/15/24 08:00
Calcium Carbonate/Vitamin D3 [Oscal 500 + D] 500 mg PO DAILY
Cholecalciferol (Vitamin D3) [VITAMIN D3 (cholecalciferol)] 50 mcg PO DAILY
Duloxetine Delayed Release [Cymbalta Delayed Release] 60 mg PO DAILY
Multivitamin [Theragran] 1 tablet PO DAILY
Pantoprazole [Protonix] 40 mg PO DAILY
07/16/24 06:00
Basic Metabolic Panel IN AM
Complete Blood Count/With Diff IN AM
07/17/24 06:00
Basic Metabolic Panel IN AM
Complete Blood Count/With Diff IN AM
Vital Signs
Initial and Last Documented VS:
Initial Vital Signs
Temp Pulse Resp BP Pulse Ox
98.4 F 87 18 119/71 95
07/14/24 13:59 07/14/24 13:59 07/14/24 13:59 07/14/24 13:59 07/14/24 13:59
Last Documented Vital Signs
Temp Pulse Resp BP Pulse Ox
98.3 F 82 18 112/59 94
07/16/24 00:35 07/16/24 00:35 07/16/24 00:35 07/16/24 00:35 07/16/24 00:35
<Jesica Esparza PA-C - Last Filed: 07/16/24 01:36>
MDM/Problems Addressed
Differential Diagnosis Includes:
Limited to: Ankle sprain, right ankle fracture, right foot fracture, cellulitis, osteomyelitis
MDM/Problems Addressed:
Patient is 63F with hx open trimalleolar fracture with repair in 01/2024 presenting with acute right ankle pain unable to weight bear since Saturday. No significant injury although patient felt acute onset of pain when getting out of bed Saturday
morning. Patient does have 2 wounds on medial and lateral malleolus of right ankle being cared for by wound care. No purulent drainage, or signs of active infection at this time. Vital stable. Patient afebrile. Exam as above. X-ray of right
ankle obtained which shows acute fracture with displacement of hardware. This will require surgical management. Case discussed with patient's surgeon, Dr. Marques. Dr. Torres, ortho/buffing wheel presser at patient's bedside for assessment. Patient
placed in posterior leg splint by orthopedics. Patient will be admitted to hospital service for plan for OR tomorrow. Will obtain basic lab, EKG. Will hold off on antibiotics at this time per orthopedics. Patient accepted to hospital service in
stable condition. Patient seen with attending physician.
Chronic conditions affecting care:
N/A
Acute Exacerbation and/or Progression of Chronic Illness:
N/A
<Jesica Esparza PA-C - Last Filed: 07/16/24 01:36>
*Radiology
Radiology exam reviewed: preliminary read by ED provider (Fracture of right medial malleolus involvement of hardware) and radiology read reviewed
*Pulse Oximetry
Patient hypoxic: no
*EKG
Interpreted by ED Provider?: NA
*Hand Tool Lapper Interpretation
Rate: Hand Tool Lapper- N/A
*Critical Care Note
Total Time (30-74mins, 75-104mins- exclusive of procedures): Not Applicable
<Jesica Esparza PA-C - Last Filed: 07/16/24 01:36>
Patient Management
Discussion with other providers: Cold Press Operator (Orthopedics - Dr. Marques, Dr. Torres)
Escalation/DeEscalation of care consider admission/obs:
Admit - plan for OR tomorrow for surgical washout/culture and hardware removal/replacement
ED Attending Note
<Jesica Esparza PA-C - Last Filed: 07/16/24 01:36>
-
Portions of this chart may have been created with voice recognition software.� Occasional wrong word or��sound alike� substitutions may have occurred due to the inherent limitations of voice recognition software.
<Raza Gatica MD - Last Filed: 07/14/24 20:08>
ED Attending Note
Patient seen and examined by attending physician: Yes
ED Attending Note:
I have seen and evaluated the patient with a [id number] encounter. I have spoken to the advance practicer provider and involved in the medical history, the physical exam, medical decision making.
Evaluation and management service: agree unless noted differently below.
Results interpretation: agree unless noted differently below.
Focused HPI: 63-year-old female with history as documented presents to the emergency room for right ankle pain. She notably had trimalleolar fracture in January that was repaired with Dr. Marques. She had been nonweightbearing until the end of
May when she started to ambulate with walker. She says that she was having some 'tingling/burning' pain in her toes after she started walking.this was potentially thought to be related to postoperative wounds which were chronic/nonhealing and
for which she was following at the wound center. However Saturday (2 days ago) when she got up out of bed she felt that the pain had suddenly worsened and she was having severe pain in the ankle and difficulty bearing weight. Referred to the ER for
assessment. Denies any direct fall or trauma/injury.
Physical exam: Awake alert not in distress. She has small wounds 1 on the medial malleolus and another on the lateral malleolus which are not erythematous, no drainage. She has no obvious deformity the ankle. She has swelling and tenderness along
the medial malleolus and just inferior to the medial malleolus. No midfoot tenderness
Medical Decision Makin-year-old female who presents for evaluation of worsening right ankle pain; had trimalleolar fracture repaired by Dr. Marques in January. Sent for an x-ray which shows displacement of hardware and fracture. Reviewed with
podiatry�patient will need surgical revision, patient cannot bear weight, admitted to the hospitalist service.
Discharge Plan
Departure
Patient Disposition: Admit
Date of Disposition: 07/14/24
Time of Disposition: 18:04
Presentation/result/management discussed w/ accepting MD/DO: Hospitalist
Discharge Problem:
Open wound of right ankle, Complication of internal fixation device of bone of right lower leg, Fracture of right ankle
Interventions
Interventions:
*Risk Screen - Suicide Last Done: 07/14/24 21:11
*General Assessment Last Done: 07/14/24 16:33
*Neglect/Abuse Screening Last Done: 07/14/24 16:33
*ED COVID-19 Vaccine History Last Done: 07/14/24 21:00
*Nursing Disposition Last Done: 07/14/24 21:11
ED-Musculoskeletal Assessment Last Done: 07/14/24 16:33
Discharge Date and Time
Discharge Date/Time: 07/14/24 21:17
[2024-07-14] MEDS: TYLENOL 650 MG PO ×2 (15:52→23:35)
[2024-07-14 16:32] LABS: Glucose - Point of Care 97 mg/dl (70-99)
--- NOTE | 2024-07-14 18:20 | HPS.HSE ---
Family Physician
-
Family Physician: WEI Mena
Chief Complaint
-
Musculoskeletal complaint/right ankle pain
History of Present Illness
Patient is a 63-year-old female who reports that she had sudden onset of right ankle pain when getting out of bed yesterday morning. Patient states she has been unable to bear weight on right ankle since. Patient did sustain an open trimalleolar
fracture and dislocation in January 2024 which was repaired by Dr. Marques. Patient has been following closely with his office and was made weightbearing without boot approximately 3 weeks ago. Patient was healing well until sudden onset pain on
Saturday.
Medical History
Past Medical History
Past Medical History: Reports Other
Additional Past Medical History:
Diabetes
Anxiety
Depression
Diverticulitis/diverticulosis
Gastroenteritis
Colitis
Past Surgical History: Reports Other
Additional Past Surgical History:
Appendectomy
Bowel resection
Cholecystectomy
Gaglian Cyst
Surgically repaired open trimalleolar fracture in 02/20
Social History
Tobacco: Former Smoker (quit 37 years ago)
Alcohol: None
Drug: None
Personal: Single
Living: Alone
Employment: Retired
Family History
Family History: Not pertinent
Allergies / Home Medications
Allergies reflects when Allergies were last updated in [employer].
Home Medications with original date entered in [employer]
Allergy/Medication List:
Allergies
Allergy/AdvReac Type Severity Reaction Status Date / Time
aspirin Allergy Mild ringing in Verified 07/14/24 14:04
her ears
latex Allergy SENSITIVITY Verified 07/14/24 14:04
TO SOME
petroleum Allergy Rash Uncoded 07/14/24 14:04
Home Medications Table - record
�Medication �Instructions �Recorded �Confirmed
atorvastatin 20 mg tablet (Lipitor) 20 mg PO HS 02/03/24 07/14/24
metformin 500 mg tablet,extended 500 mg PO BID@0800,1700 Diabetes 02/03/24 07/14/24
release 24hr (osmotic)
amlodipine 5 mg tablet 5 mg PO BID #60 tabs 02/12/24 07/14/24
insulin aspart U-100 100 unit/mL 15 unit (0.15 mL) SC AC #1 mL 02/12/24 07/14/24
(3 mL) subcutaneous pen
labetalol 100 mg tablet 100 mg PO BID #60 tabs 02/12/24 07/14/24
lisinopril 20 mg tablet 20 mg PO BID #60 tabs 02/12/24 07/14/24
pantoprazole 40 mg tablet,delayed 40 mg PO DAILY #30 tabs 02/12/24 07/14/24
release
amoxicillin 875 mg-potassium 1 tab PO Q12H 07/14/24 07/14/24
clavulanate 125 mg tablet
calcium 300 mg (carb, 1 tab PO DAILY 07/14/24 07/14/24
citrate)-magnesium 150 mg-vit D3
400 unit tablet
cholecalciferol (vitamin D3) 25 50 mcg PO DAILY 07/14/24 07/14/24
mcg (1,000 unit) tablet
duloxetine 60 mg capsule,delayed 60 mg PO DAILY 07/14/24 07/14/24
release
gabapentin 300 mg capsule 300 mg PO HS 07/14/24 07/14/24
ibuprofen 200 mg tablet 400 mg PO Q6HPRN PRN mild pain 07/14/24 07/14/24
insulin glargine-yfgn 100 unit/mL 28 unit SC HS 07/14/24 07/14/24
(3 mL) subcutaneous pen
naproxen 1 tab PO Q6HPRN PRN mild pain 07/14/24 07/14/24
therapeutic multivitamin 1 tab PO DAILY 07/14/24 07/14/24
Review of Systems
-
History Source: Patient
Constitutional: Reports No Symptoms
EENT: Reports No Symptoms
Respiratory: Reports No Symptoms
Cardiac: Reports No Symptoms
Abdomen/GI: Reports No Symptoms
: Reports No Symptoms
Musculoskeletal: Reports Other (right ankle and foot pain)
Skin: Reports Other (open wound to medial/lateral malleolus)
Neurological: Reports No Symptoms
Endocrine: Reports No Symptoms
Hematologic/Lymphatic: Reports No Symptoms
Psych: Reports No Symptoms
Physical Exam
Vital Signs
Vital Signs
Temp Pulse Resp BP Pulse Ox
98.4 F 87 18 119/71 95
07/14/24 13:59 07/14/24 13:59 07/14/24 13:59 07/14/24 13:59 07/14/24 13:59
Physical Exam
General: Well Developed, Well Nourished and No Apparent Distress
HEENT: NormoCephalic, Moist mucous membranes, Atraumatic and PERRLA
Respiratory: Clear and Non Labored Respirations; No Rales, Rhonchi or Crackles
Cardiac: S1/S2 and Regular Rhythm; No Murmur or Rub
Breast: Deferred by me
GI: Soft, Non Tender, Non Distended and Normal Bowel Sounds; No Organomegaly
Rectal: Deferred by Provider
Genito-urinary: Deferred by me
Musculoskeletal: No Clubbing, No Cyanosis and Edema, Right Lower Extremity (Complex right ankle fracture involving internal fixation); No Edema, Left Upper Extremity, Edema, Right Upper Extremity or Edema, Left Lower Extremity
Skin: Warm and IV/Catheter Site; No Rash
Neuro: Awake, AO x 3 and Nonfocal/grossly intact
Hematologic/Lymphatic: No Lymphadenopathy
Psych: Calm and Intact Judgment/Insight
Data Reviewed
-
Diagnostic Radiology: Report Reviewed by me (fx of the sideplate fixating the medial distal tibia. Medial displacement of bony frgmnt assoc w/ distal side plate. lateral view, post subluxation of the talar dome relative to the distal tibial surface.
post malleolar fx fragment remains slightly post displaced. Vertical fracture line still seen )
CT Scan: Report Reviewed by me
Impression/Plan
-
IMPRESSION/ PLAN:
#Complex right ankle fracture involving internal fixation
- open trimalleolar fracture in 02/[address] Marques
- Consult Ortho
- Consult Podiatry
- NPO after midnight
#Diabetes
- Continue insulin aspart, insulin glargine,
- SSI
#Anxiety/Depression
- continue Lexapro
#Diverticulitis/diverticulosis/Gastroenteritis/Colitis
- high fiber diet
- encourage fluid intake
Full Code
DVT Px: SCDs
--- NOTE | 2024-07-14 19:05 | W.PN.UPDATE ---
Update Note
Progress Note Update
This note serves as an addendum to the H&P by software architect KAREEN Morales Heber
HPI:
63F HX T2DM, Anxiety /depression s/p complicated Right ankle fracture underwent ORIF in January 2024 ( Dr Marques) seen at ER for Rt. ankle pain
07/14/24 CT lower summary without IV contrast right
Fractured metallic plate of the medial distal right tibia as described above.
07/14/24 Rt Ankle XR
- Internal fixation of the distal right tibia and fibula.
- Since intraoperative radiographs of February 10, 2024, there has been interval development of fracture of the sideplate fixating the medial distal tibia. Medial displacement of bony fragment associated with the distal side plate. Additionally, on the
lateral view, there is posterior subluxation of the talar dome relative to the distal tibial surface.
- Posterior malleolar fracture fragment remains slightly posteriorly displaced. Vertical fracture line still visualized, although there may be a component of bony healing across the fracture line.
07/14/24 Rt Foot XR:
- Internal fixation of the distal right tibia and fibula.
- Since intraoperative radiographs of February 10, 2024, there has been interval development of fracture of the sideplate fixating the medial distal tibia. Medial displacement of bony fragment associated with the distal side plate. Additionally, on the
lateral view, there is posterior subluxation of the talar dome relative to the distal tibial surface.
- Posterior malleolar fracture fragment remains slightly posteriorly displaced. Vertical fracture line still visualized, although there may be a component of bony healing across the fracture line.
ASSESSMENT & PLAN
Fractured metallic plate of the medial distal right tibia
Interval development of fracture of the sideplate fixating the medial distal tibia.
Non healing open wound to medial/lateral malleolus.
- Pending CT of RLE ordered.
- Plan for NPO and OR tomorrow.
- To Hold on Abx for now per podiatry.
- Immobilization by in splint place by Poditris at ER
- Taping Supervisor consulted
HX IDDM
- NPO after MN
- c/w Lantus 28U HS
- Hold Aspart AC for NPO
- add ISS low
Essential hypertension
- c/w lisinopril and amlodipine.63F 63F
DVT prophylaxis to be determined post operatively
Full code.
IP MS
[2024-07-14 20:59] LABS: % Basophils 0.3 % (0-2); % Eosinophils 1.7 % (0-6); % Immature Granulocytes 0.3 % (0-0.5); % Lymphocytes 20.9 % (20.5-51.1); % Monocytes 9.1 % (1.7-9.3); % Neutrophils 67.7 % (42.2-75.2); Absolute Eosinophils 0.2 10^3/uL (0-0.7); Absolute Lymphocytes 2.4 10^3/uL (1.2-3.4); Absolute Monocytes 1.1 10^3/uL (0.1-0.6); Absolute Neutrophils 7.9 10^3/uL (1.4-6.5); Hematocrit 34.1 % (37.0-47.0); Hemoglobin 11.2 g/dL (12.0-16.0); Mean Corp Hgb Conc. 32.8 g/dL (33.0-37.0); Mean Corpuscular Hgb 26.7 pg (27.0-31.0); Mean Corpuscular Volume 81.4 fL (81.0-99.0); Mean Platelet Volume 9.3 fL (7.4-10.4); Nucleated Red Blood Cells % 0 %; Platelet Count 273 10^3/uL (130-400); Red Blood Cell Count 4.19 10^6/uL (4.20-5.40); Red Cell Dist. Width 15.4 % (11.5-14.5); White Blood Cell Count 11.7 10^3/uL (4.8-10.8)
[2024-07-14 21:03] LABS: INR 1.03; PT 13.3 Sec (11.4-14.6)
[2024-07-14 21:04] LABS: APTT 35.3 Sec (23.4-35.0)
[2024-07-14 21:07] VITALS: BP 153/70; BMI 38.6
[2024-07-14 21:13] LABS: ALT (SGPT) 30 U/L (0-35); AST (SGOT) 27 U/L (14-36); Albumin 4.1 g/dl (3.5-5.0); Alkaline Phosphatase 124 U/L (38-126); Blood Urea Nitrogen 32 mg/dl (7-17); Calcium 9.7 mg/dl (8.4-10.2); Carbon Dioxide 25 mmol/L (22-30); Chloride 101 mmol/L (98-107); Estimated Creatinine Clearance 78 ml/min; Glucose 207 mg/dl (70-99); Potassium 4.4 mmol/L (3.5-5.1); Sodium 142 mmol/L (135-145); Total Bilirubin 0.4 mg/dl (0.2-1.3); Total Protein 6.7 g/dl (6.3-8.2); eGFR > 60.00
[2024-07-14 21:14] LABS: Erythrocyte Sed Rate 41 mm/hour (0-20)
[2024-07-14] MEDS: LIPITOR 20 MG PO (21:40)
[2024-07-14] MEDS: NORVASC 5 MG PO (21:40)
[2024-07-14] MEDS: NEURONTIN 300 MG PO (21:40)
[2024-07-14] MEDS: TRANDATE 100 MG PO (21:41)
[2024-07-14] MEDS: ROXICODONE 5 MG PO (21:42)
[2024-07-14] MEDS: LANTUS 0.28 UNITS SC (22:33)
[2024-07-14] MEDS: ZESTRIL 20 MG PO (22:33)
[2024-07-14 22:44] LABS: Glucose - Point of Care 185 mg/dl (70-99)
[2024-07-14 23:09] VITALS: BP 125/58
--- NOTE | 2024-07-14 23:30 | PTCARENOTE ---
21:00 pt rec'vd from ER , left ankle carolyn wrapped + CMS. pt oriented to unit
[2024-07-15] VITALS (12 sets, daily range): BP systolic 103–155; BP diastolic 57–80
--- NOTE | 2024-07-15 04:01 | DOWNTIME ---
There was a [employer] Client Sample Washer Downtime on 07/15/2024 from 0100 to 07/15/2024 at 0355. Downtime documentation of patient's care, including medication administrations, has been reconciled in the electronic record per guidelines. Refer to the
patient's paper chart under the miscellaneous tab to see printed paper medication records and downtime forms.
[2024-07-15 05:57] LABS: % Basophils 0.5 % (0-2); % Eosinophils 2.9 % (0-6); % Immature Granulocytes 0.4 % (0-0.5); % Lymphocytes 28.7 % (20.5-51.1); % Monocytes 9.2 % (1.7-9.3); % Neutrophils 58.3 % (42.2-75.2); Absolute Basophils 0.1 10^3/uL (0-0.2); Absolute Eosinophils 0.3 10^3/uL (0-0.7); Absolute Lymphocytes 2.8 10^3/uL (1.2-3.4); Absolute Monocytes 0.9 10^3/uL (0.1-0.6); Absolute Neutrophils 5.6 10^3/uL (1.4-6.5); Hematocrit 37.4 % (37.0-47.0); Hemoglobin 12.1 g/dL (12.0-16.0); Mean Corp Hgb Conc. 32.4 g/dL (33.0-37.0); Mean Corpuscular Hgb 27.5 pg (27.0-31.0); Mean Platelet Volume 9.9 fL (7.4-10.4); Nucleated Red Blood Cells % 0 %; Platelet Count 284 10^3/uL (130-400); Red Cell Dist. Width 15.2 % (11.5-14.5); White Blood Cell Count 9.6 10^3/uL (4.8-10.8)
[2024-07-15 06:19] LABS: Blood Urea Nitrogen 28 mg/dl (7-17); Calcium 9.7 mg/dl (8.4-10.2); Carbon Dioxide 26 mmol/L (22-30); Chloride 101 mmol/L (98-107); Estimated Creatinine Clearance 89 ml/min; Glucose 111 mg/dl (70-99); Potassium 4.4 mmol/L (3.5-5.1); Sodium 141 mmol/L (135-145); eGFR > 60.00
[2024-07-15 08:06] LABS: Glucose - Point of Care 123 mg/dl (70-99)
[2024-07-15] MEDS: NOVOLOG FLEXPEN SC ×2 (08:18→11:50)
[2024-07-15] MEDS: CYMBALTA DELAYED RELEASE 60 MG PO (08:21)
[2024-07-15] MEDS: PROTONIX 40 MG PO (08:21)
[2024-07-15] MEDS: THERAGRAN 1 TABLET PO (08:21)
[2024-07-15] MEDS: TRANDATE 100 MG PO (08:21)
[2024-07-15] MEDS: NORVASC 5 MG PO (08:21)
[2024-07-15] MEDS: OSCAL 500 + D 500 MG PO (08:21)
[2024-07-15] MEDS: VITAMIN D3 (cholecalciferol) 50 MCG PO (08:21)
[2024-07-15] MEDS: ZESTRIL 20 MG PO (08:21)
[2024-07-15 09:43] LABS: Glycohemoglobin (HgbA1c) 6.9 % (4.0-5.6)
[2024-07-15] MEDS: ROXICODONE 5 MG PO ×2 (10:32→21:08)
--- NOTE | 2024-07-15 11:03 | W.PN.HOSP.TC ---
Today's Communication/Plan
-
see A/P
Assessment / Plan
Assessment / Plan
HPI: 63-year-old female with PMH T2DM, Anxiety /depression s/p complicated Right ankle fracture underwent ORIF in January 2024 (Dr Marques), p/w R ankle pain. 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 Patient stated she has been unable
to bear weight on right ankle since.
A/P:
# R ankle pain 2/2 Fractured metallic plate of the medial distal right tibia
# Increased displacement of the posterior and medial malleolar fractures
Fundraising Sale Representative on board, plan for OR
Pt is at intermediate risk for intermediate risk procedure. She is clinically stable to proceed with procedure. Benefit of procedure outweighs risk.
For now, continue immobilization by splint
# IDDM
c/w Lantus 28U HS
resume Aspart AC when NPO lifted
cover with ISS low
# Essential hypertension
c/w EMAIL PRODUCTION CONSULTANT lisinopril, amlodipine, labetalol with holding parameter
DVT prophylaxis to be determined post operatively
Full code.
Anticipated Discharge: 24 - 48 hours
Subjective/Interval History
-
Date of Service: July 15, 2024
Objective Data
-
Labs:
Laboratory Results
07/15/24
05:12
WBC 9.6
Hgb 12.1
Hct 37.4
Plt Count 284
Sodium 141
Potassium 4.4
Chloride 101
Carbon Dioxide 26
BUN 28 H
Creatinine 0.7
Glucose 111 H
Calcium 9.7
Vital Signs:
Vital Signs
Temp Pulse Resp BP Pulse Ox
36.9 C 78 17 134/61 94
07/15/24 07:50 07/15/24 07:50 07/15/24 07:50 07/15/24 07:50 07/15/24 07:50
I&O
07/14/24 07/15/24 07/16/24
06:59 06:59 06:59
Intake Total 460 / 460
Balance 460 / 460
Review of Systems
-
All other systems: Reviewed and negative
Physical Exam
-
General: Well Developed, No Apparent Distress, Comfortable, Conversant and Obese
HEENT: Normocephalic, Atraumatic and Moist Mucous Membranes
Respiratory: Clear to Auscultation and Non Labored Respirations; Negative Accessory Resp Muscle Use
Cardiac: Regular Rhythm and S1/S2; Negative Murmur, Rub or Gallop
GI: Soft, Nontender, Nondistended and Normal Bowel Sounds; Negative Organomegaly
Rectal: Deferred by Provider
Musculoskeletal: Other (RLE in splint )
Skin: Negative Rash
Neuro: Awake and Alert
Psych: Calm and Intact Judgement/Insight
Data Reviewed
-
CT Scan: Report Reviewed by me
Labs: Labs Reviewed by me
--- NOTE | 2024-07-15 11:09 | CON.SURG ---
Surgical Consultation
-
Chief Complaint
Right ankle injury
History of Present Illness
Patient is a 63-year-old female who reports that she had sudden onset of right ankle pain when getting out of bed this past weekend. Patient states she has been unable to bear weight on right ankle since. Patient did sustain an open trimalleolar
fracture and dislocation in January 2024 which was repaired by Dr. Marques. The patient was initially in an external fixator, followed by internal fixation. Subsequently she had delayed wound healing (previous HbA1c >11%), but her wounds have recently
been small and superficial. Patient has been following closely with his office and was made weightbearing without boot approximately 3 weeks ago. Patient was healing well until sudden onset pain on Saturday.
Medical History
Past Medical History
Past Medical History: Reports Other
Additional Past Medical History:
Diabetes
Anxiety
Depression
Diverticulitis/diverticulosis
Gastroenteritis
Colitis
Past Surgical History: Reports Other
Additional Past Surgical History:
Appendectomy
Bowel resection
Cholecystectomy
Gaglian Cyst
Surgically repaired open trimalleolar fracture in 02/20
Social History
Tobacco: Former Smoker (quit 37 years ago)
Alcohol: None
Drug: None
Personal: Single
Living: Alone
Employment: Retired
Family History
Family History: Not pertinent
Allergies / Home Medications
Allergies reflects when Allergies were last updated in [facility].
Home Medications with original date entered in [facility]
Allergy/Medication List:
Allergies
Allergy/AdvReac Type Severity Reaction Status Date / Time
aspirin Allergy Mild ringing in Verified 07/14/24 14:04
her ears
latex Allergy SENSITIVITY Verified 07/14/24 14:04
TO SOME
petroleum Allergy Rash Uncoded 07/14/24 14:04
Home Medications Table - record
�Medication �Instructions �Recorded �Confirmed
atorvastatin 20 mg tablet (Lipitor) 20 mg PO HS 02/03/24 07/14/24
metformin 500 mg tablet,extended 500 mg PO BID@0800,1700 Diabetes 02/03/24 07/14/24
release 24hr (osmotic)
amlodipine 5 mg tablet 5 mg PO BID #60 tabs 02/12/24 07/14/24
insulin aspart U-100 100 unit/mL 15 unit (0.15 mL) SC AC #1 mL 02/12/24 07/14/24
(3 mL) subcutaneous pen
labetalol 100 mg tablet 100 mg PO BID #60 tabs 02/12/24 07/14/24
lisinopril 20 mg tablet 20 mg PO BID #60 tabs 02/12/24 07/14/24
pantoprazole 40 mg tablet,delayed 40 mg PO DAILY #30 tabs 02/12/24 07/14/24
release
amoxicillin 875 mg-potassium 1 tab PO Q12H 07/14/24 07/14/24
clavulanate 125 mg tablet
calcium 300 mg (carb, 1 tab PO DAILY 07/14/24 07/14/24
citrate)-magnesium 150 mg-vit D3
400 unit tablet
cholecalciferol (vitamin D3) 25 50 mcg PO DAILY 07/14/24 07/14/24
mcg (1,000 unit) tablet
duloxetine 60 mg capsule,delayed 60 mg PO DAILY 07/14/24 07/14/24
release
gabapentin 300 mg capsule 300 mg PO HS 07/14/24 07/14/24
ibuprofen 200 mg tablet 400 mg PO Q6HPRN PRN mild pain 07/14/24 07/14/24
insulin glargine-yfgn 100 unit/mL 28 unit SC HS 07/14/24 07/14/24
(3 mL) subcutaneous pen
naproxen 1 tab PO Q6HPRN PRN mild pain 07/14/24 07/14/24
therapeutic multivitamin 1 tab PO DAILY 07/14/24 07/14/24
Review of Systems
-
History Source: Patient
Constitutional: Reports No Symptoms
EENT: Reports No Symptoms
Respiratory: Reports No Symptoms
Cardiac: Reports No Symptoms
Abdomen/GI: Reports No Symptoms
: Reports No Symptoms
Musculoskeletal: Reports Other (right ankle and foot pain)
Skin: Reports Other (open wound to medial/lateral malleolus)
Neurological: Reports No Symptoms
Endocrine: Reports No Symptoms
Hematologic/Lymphatic: Reports No Symptoms
Psych: Reports No Symptoms
Physical Exam
Vital Signs
Vital Signs
Temp Pulse Resp BP Pulse Ox
98.4 F 87 18 119/71 95
07/14/24 13:59 07/14/24 13:59 07/14/24 13:59 07/14/24 13:59 07/14/24 13:59
Physical Exam
General: Well Developed, Well Nourished and No Apparent Distress
HEENT: NormoCephalic, Moist mucous membranes, Atraumatic and PERRLA
Respiratory: Clear and Non Labored Respirations; No Rales, Rhonchi or Crackles
Cardiac: S1/S2 and Regular Rhythm; No Murmur or Rub
Breast: Deferred by me
GI: Soft, Non Tender, Non Distended and Normal Bowel Sounds; No Organomegaly
Rectal: Deferred by Provider
Genito-urinary: Deferred by me
Musculoskeletal: No Clubbing, No Cyanosis and Edema, Right Lower Extremity (Complex right ankle fracture involving internal fixation); No Edema, Left Upper Extremity, Edema, Right Upper Extremity or Edema, Left Lower Extremity
Skin: Warm and IV/Catheter Site; No Rash
Neuro: Awake, AO x 3 and Nonfocal/grossly intact
Hematologic/Lymphatic: No Lymphadenopathy
Psych: Calm and Intact Judgment/Insight
Right lower extremity exam
-DP/PT pulses 2/4, capillary refill < 3 seconds
-Moderate edema noted to right ankle with valgus and lateral translation deformity noted
-Wound noted at medial ankle and lateral distal leg. Wounds have granular wound base with no purulence, deep probing, crepitus, or fluctuance. Mild surrounding erythema
-Profound neuropathy noted with diminished light touch to distal extremity
Data Reviewed
-
Diagnostic Radiology: Report Reviewed by me (fx of the sideplate fixating the medial distal tibia. Medial displacement of bony frgmnt assoc w/ distal side plate. lateral view, post subluxation of the talar dome relative to the distal tibial surface.
post malleolar fx fragment remains slightly post displaced. Vertical fracture line still seen )
CT Scan: Report Reviewed by me
Impression/Plan
Patient is a 63 year old female with a history of complex open right ankle injury requiring external fixation with subsequent ORIF by Dr. Marques in January 2024. She has been recovering well but recently had an acute injury to the right ankle and could
no longer bear weight on the leg. She has re-fractured her medial malleolus and her hardware is now broken with an overlying medial ankle wound.
-Plan for OR 07/[address] Marques for wound debridement, hardware removal, possible external fixator application
-Can hold antibiotics for now
-Strict NWB to RLE
[2024-07-15 11:40] LABS: Glucose - Point of Care 133 mg/dl (70-99)
[2024-07-15 14:29] LABS: Vitamin D, 25-OH*** 47.8 ng/mL (30-80)
--- NOTE | 2024-07-15 19:47 | W.PN.SURGUPD ---
Surgical Update
Surgical Update
s/p RLE hardware removal, ankle reduction, external fixator application
-Follow up in 1x culture, 2x pathology
-Further surgical plans pending culture and pathology
-NWB to RLE
-PT/OT
-Dressings to remain intact
[2024-07-15 20:05] LABS: Glucose - Point of Care 160 mg/dl (70-99)
[2024-07-15] MEDS: SUBLIMAZE 50 MCG IV (20:15)
[2024-07-15] MEDS: TYLENOL 650 MG PO (21:11)
[2024-07-15 21:40] LABS: Glucose - Point of Care 166 mg/dl (70-99)
[2024-07-15] MEDS: NOVOLOG FLEXPEN 15 UNITS SC (21:40)
--- NOTE | 2024-07-15 22:00 | PTCARENOTE ---
pt arrived from PACU she is aaox3, reports pain 5/10. pt right lower extremity is in a splint, carolyn wrap, and external fixation device. pt has +doppler for popiteal pulse, +1 edema to toes and pedal. pt leg is elevated on pillows. pt is NWB to RLE.
pt voided in bed pedersen. pt tolerated dinner. pt has call fay in reach
[2024-07-15] MEDS: LIPITOR 20 MG PO (23:23)
[2024-07-15] MEDS: NEURONTIN 300 MG PO (23:23)
[2024-07-15] MEDS: NORVASC PO (23:24)
[2024-07-15] MEDS: TRANDATE PO (23:24)
[2024-07-15] MEDS: ZESTRIL PO (23:24)
[2024-07-15] MEDS: LANTUS 0.28 UNITS SC (23:26)
[2024-07-15 23:27] LABS: Glucose - Point of Care 258 mg/dl (70-99)
[2024-07-16 00:35] VITALS: BP 112/59
[2024-07-16 03:21] VITALS: BP 115/61
[2024-07-16] MEDS: TYLENOL 650 MG PO ×2 (04:31→21:11)
[2024-07-16] MEDS: ROXICODONE 5 MG PO ×3 (04:32→19:24)
[2024-07-16 05:24] LABS: % Basophils 0.2 % (0-2); % Immature Granulocytes 0.5 % (0-0.5); % Lymphocytes 8.9 % (20.5-51.1); % Monocytes 2.7 % (1.7-9.3); % Neutrophils 87.7 % (42.2-75.2); Absolute Immature Granulocytes 0.1 10^3/uL (0-0.05); Absolute Lymphocytes 1.1 10^3/uL (1.2-3.4); Absolute Monocytes 0.4 10^3/uL (0.1-0.6); Absolute Neutrophils 11.3 10^3/uL (1.4-6.5); Hematocrit 34.4 % (37.0-47.0); Hemoglobin 11.4 g/dL (12.0-16.0); Mean Corp Hgb Conc. 33.1 g/dL (33.0-37.0); Mean Corpuscular Hgb 26.6 pg (27.0-31.0); Mean Corpuscular Volume 80.4 fL (81.0-99.0); Mean Platelet Volume 9.3 fL (7.4-10.4); Nucleated Red Blood Cells % 0 %; Platelet Count 267 10^3/uL (130-400); Red Blood Cell Count 4.28 10^6/uL (4.20-5.40); Red Cell Dist. Width 14.9 % (11.5-14.5); White Blood Cell Count 12.9 10^3/uL (4.8-10.8)
[2024-07-16 05:45] LABS: Blood Urea Nitrogen 24 mg/dl (7-17); Calcium 9.2 mg/dl (8.4-10.2); Carbon Dioxide 29 mmol/L (22-30); Estimated Creatinine Clearance 78 ml/min; Glucose 225 mg/dl (70-99); Magnesium 1.8 mg/dl (1.6-2.3); Potassium 4.9 mmol/L (3.5-5.1); Sodium 138 mmol/L (135-145); eGFR > 60.00
[2024-07-16 05:51] LABS: Chloride 99 mmol/L (98-107)
[2024-07-16 07:35] VITALS: BP 141/78
[2024-07-16 08:07] LABS: Glucose - Point of Care 202 mg/dl (70-99)
--- NOTE | 2024-07-16 08:24 | CM ---
met ariel patient at bedside.patient lives at [facility] with an elevator.she was able to amb i and was I with her adl.
she hs never had a vn but had been at [facility] for [facility].
pcp: dr bustamante [facility]
PMH:anxiety depression ovaraian cyst,diverticulitis,prior right foot surgery
patient is adm with a right ankle fracture and is now post op rle removal of hardware ankle reduction and external fixator application.she is nwb rle.patient is a diabetic on metformin.await pt/ot evals.patient interested in acute rehab.Plan'acute
rehab vs snf.
--- NOTE | 2024-07-16 08:31 | PHA.VAN.IN ---
Assessment
- Assessment
Renal Function: Appears similar to baseline
Concomitant Antimicrobials: cefazolin
AUC Dosing Plan
- Dosing Variables
Dosing Weight (kg): 95.5
Dosing CrCl (ml/min): 78
Vd coefficient (L/kg): 0.6-0.7
- Empiric Dosing
Maintenance Regimen: Vanc 1000mg Q12H - first dose now then 1800 in lieu of load
Estimated AUC (mcg*h/mL): 448 - 522
Estimated Peak (mcg*h/mL): 26.5 - 31
Estimated Trough (mcg/ml): 12.4 - 14.5
Estimated Half Life (H): 10
- Monitoring
No levels ordered at this time: consider levels in next few days
Pharmacokinetics Vancomycin I
- -
Patient Age: 63
Patient Sex: Female
Vancomycin Day #: 1
Indication: Skin And Soft Tissue
Requesting Provider: Dr. Meza
Pertinent Antimicrobial Allergies:
no pertinent antibiotic allergies
Height / Weight:
Height 5 ft 2 in
Actual Weight 95.51 kg
Pertinent Past Medical History: BMI ~38.5
- Vital Signs / Lab Results
Temp Pulse Resp BP Pulse Ox
97.8 F 89 18 141/78 98
07/16/24 07:35 07/16/24 07:35 07/16/24 07:35 07/16/24 07:35 07/16/24 07:35
Lab Results - Hematology
07/14/24 07/15/24 07/16/24
20:41 05:12 05:02
WBC 11.7 H 9.6 12.9 H
Lab Results - Chemistry
07/14/24 07/15/24 07/16/24
20:41 05:12 05:02
BUN 32 H 28 H 24 H
Creatinine 0.8 0.7 0.8
Estimated Creat Clear 78 89 78
Albumin 4.1
--- NOTE | 2024-07-16 09:33 | W.PN.SURGUPD ---
Surgical Update
Surgical Update
s/p RLE hardware removal, ankle reduction, external fixator application 07/[address] Marques. Recovering well this AM, pain is well controlled.
-Patient seen and evaluated at bedside. Dressings to remain intact. Skin will be checked next week
-Follow up 1x culture, 2x pathology from OR
-Further surgical plans pending culture and pathology
-Vancomycin and ancef for antibiotics for soft tissue coverage pending culture findings
-NWB to RLE
-PT/OT
-Will continue to follow
[2024-07-16] MEDS: NOVOLOG FLEXPEN 15 UNITS SC ×3 (09:43→17:11)
[2024-07-16] MEDS: CYMBALTA DELAYED RELEASE 60 MG PO (09:44)
[2024-07-16] MEDS: OSCAL 500 + D 500 MG PO (09:44)
[2024-07-16] MEDS: THERAGRAN 1 TABLET PO (09:45)
[2024-07-16] MEDS: PROTONIX 40 MG PO (09:45)
[2024-07-16] MEDS: NORVASC 5 MG PO ×2 (09:45→19:25)
[2024-07-16] MEDS: TRANDATE 100 MG PO ×2 (09:45→19:24)
[2024-07-16] MEDS: ZESTRIL 20 MG PO ×2 (09:45→19:25)
[2024-07-16] MEDS: VITAMIN D3 (cholecalciferol) 50 MCG PO (09:45)
[2024-07-16] MEDS: VANCOCIN 200 IV ×2 (09:50→17:15)
[2024-07-16] MEDS: ANCEF 5 IV ×2 (09:50→17:14)
--- NOTE | 2024-07-16 10:59 | W.PN.HOSP.TC ---
Today's Communication/Plan
-
see A/P
Assessment / Plan
Assessment / Plan
HPI: 63-year-old female with PMH T2DM, Anxiety /depression s/p complicated Right ankle fracture underwent ORIF in January 2024 (Dr Marques), p/w R ankle pain. 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 Patient stated she has been unable
to bear weight on right ankle since.
A/P:
# R ankle pain 2/2 Fractured metallic plate of the medial distal right tibia
# Increased displacement of the posterior and medial malleolar fractures
s/p OR RLE hardware removal, ankle reduction, external fixator application 07/[address] Marques.
Follow up 1x culture, and 2x pathology from OR
for now, cover with empiric Vancomycin and ancef
Per assistant casino shift manager, depending on culture and path report, would decide if pt needs additional surgery or not
NWB to RLE
PT/OT
# IDDM
c/w Lantus 28U HS, Aspart 15 units AC
Carb control diet
cover with ISS low
# Essential hypertension
c/w ADVANCED MANUFACTURING ASSOCIATE lisinopril, amlodipine, labetalol with holding parameter
DVT prophylaxis to be determined post operatively
Full code.
DW Bankruptcy Processor
DW RN
Anticipated Discharge: > 48 hours
Subjective/Interval History
-
Date of Service: July 16, 2024
Objective Data
-
Labs:
Laboratory Results
07/16/24
05:02
WBC 12.9 H
Hgb 11.4 L
Hct 34.4 L
Plt Count 267
Sodium 138
Potassium 4.9
Chloride 99
Carbon Dioxide 29
BUN 24 H
Creatinine 0.8
Glucose 225 H
Calcium 9.2
Vital Signs:
Vital Signs
Temp Pulse Resp BP Pulse Ox
36.6 C 89 18 141/76 98
07/16/24 07:35 07/16/24 07:35 07/16/24 07:35 07/16/24 09:45 07/16/24 07:35
I&O
07/15/24 07/16/24 07/17/24
06:59 06:59 06:59
Intake Total 460 / 460 1010 / 1010
Balance 460 / 460 1010 / 1010
Review of Systems
-
All other systems: Reviewed and negative
Physical Exam
-
General: Well Developed, No Apparent Distress, Comfortable, Conversant and Obese
HEENT: Normocephalic, Atraumatic and Moist Mucous Membranes
Respiratory: Clear to Auscultation and Non Labored Respirations; Negative Accessory Resp Muscle Use
Cardiac: Regular Rhythm and S1/S2; Negative Murmur, Rub or Gallop
GI: Soft, Nontender, Nondistended and Normal Bowel Sounds; Negative Organomegaly
Rectal: Deferred by Provider
Musculoskeletal: Other (R ankle in external fixation)
Skin: Negative Rash
Neuro: Awake and Alert
Psych: Calm and Intact Judgement/Insight
Data Reviewed
-
CT Scan: Report Reviewed by me
Labs: Labs Reviewed by me
--- NOTE | 2024-07-16 12:09 | CM ---
Patient seen at bedside. OR yesterday R ankle
IV abx
Spoke with daughter earlier who requested physician to call her.
tt hospitalist
Discussed case management role.
PT/OT to see patient - await recommendations. Acute vs. SNF?
Reviewed options - gave her [email or web address] care compare.
PLAN: Await PT/OT Acute vs. SNF?
[2024-07-16 13:55] VITALS: BP 130/80; PULSE 95; O2SAT 98
[2024-07-16 14:10] LABS: Glucose - Point of Care 207 mg/dl (70-99)
[2024-07-16 15:15] VITALS: BP 133/66
[2024-07-16 17:07] LABS: Glucose - Point of Care 286 mg/dl (70-99)
[2024-07-16] MEDS: FLUSH (NSS) 3 FLUSH IV (17:15)
[2024-07-16 21:07] LABS: Glucose - Point of Care 185 mg/dl (70-99)
[2024-07-16] MEDS: LANTUS 0.28 UNITS SC (21:10)
[2024-07-16] MEDS: NEURONTIN 300 MG PO (21:11)
[2024-07-16] MEDS: LIPITOR 20 MG PO (21:11)
[2024-07-16 23:00] VITALS: BP 140/71
[2024-07-17] MEDS: ANCEF 5 IV ×3 (01:43→17:11)
[2024-07-17] MEDS: VANCOCIN 200 IV ×2 (05:18→17:11)
[2024-07-17] MEDS: ROXICODONE 5 MG PO ×4 (05:26→21:21)
[2024-07-17 05:44] LABS: % Basophils 0.3 % (0-2); % Eosinophils 0.6 % (0-6); % Immature Granulocytes 0.5 % (0-0.5); % Neutrophils 60.6 % (42.2-75.2); Absolute Eosinophils 0.1 10^3/uL (0-0.7); Absolute Immature Granulocytes 0.1 10^3/uL (0-0.05); Absolute Lymphocytes 3.7 10^3/uL (1.2-3.4); Absolute Monocytes 1.2 10^3/uL (0.1-0.6); Absolute Neutrophils 7.8 10^3/uL (1.4-6.5); Hematocrit 35.3 % (37.0-47.0); Hemoglobin 11.5 g/dL (12.0-16.0); Mean Corp Hgb Conc. 32.6 g/dL (33.0-37.0); Mean Corpuscular Hgb 27.6 pg (27.0-31.0); Mean Corpuscular Volume 84.7 fL (81.0-99.0); Mean Platelet Volume 9.6 fL (7.4-10.4); Nucleated Red Blood Cells % 0 %; Platelet Count 304 10^3/uL (130-400); Red Blood Cell Count 4.17 10^6/uL (4.20-5.40); Red Cell Dist. Width 15.3 % (11.5-14.5); White Blood Cell Count 12.9 10^3/uL (4.8-10.8)
[2024-07-17 06:04] LABS: Blood Urea Nitrogen 21 mg/dl (7-17); Calcium 9.3 mg/dl (8.4-10.2); Carbon Dioxide 29 mmol/L (22-30); Chloride 101 mmol/L (98-107); Estimated Creatinine Clearance 69 ml/min; Glucose 151 mg/dl (70-99); Magnesium 1.9 mg/dl (1.6-2.3); Potassium 4.3 mmol/L (3.5-5.1); Sodium 144 mmol/L (135-145); eGFR > 60.00
--- NOTE | 2024-07-17 07:08 | W.PN.SURGUPD ---
Surgical Update
Surgical Update
s/p RLE hardware removal, ankle reduction, external fixator application 07/[address] Marques. Continues to recover well, pain is well controlled. Toes pink and well perfused.
-Patient seen and evaluated at bedside. Dressings to remain intact. Skin will be checked next week
-Follow up 1x culture, 2x pathology from OR - cultures NGTD
-Further surgical plans pending culture and pathology
-Vancomycin and ancef for antibiotics for soft tissue coverage pending culture findings
-NWB to RLE
-PT/OT
-Will continue to follow
[2024-07-17 07:33] LABS: Glucose - Point of Care 154 mg/dl (70-99)
[2024-07-17 07:45] VITALS: BP 143/66
[2024-07-17] MEDS: OSCAL 500 + D 500 MG PO (08:19)
[2024-07-17] MEDS: TRANDATE 100 MG PO ×2 (08:19→21:00)
[2024-07-17] MEDS: NORVASC 5 MG PO ×2 (08:19→21:00)
[2024-07-17] MEDS: CYMBALTA DELAYED RELEASE 60 MG PO (08:19)
[2024-07-17] MEDS: PROTONIX 40 MG PO (08:19)
[2024-07-17] MEDS: THERAGRAN 1 TABLET PO (08:19)
[2024-07-17] MEDS: ZESTRIL 20 MG PO ×2 (08:20→21:21)
[2024-07-17] MEDS: VITAMIN D3 (cholecalciferol) 50 MCG PO (08:20)
[2024-07-17] MEDS: NOVOLOG FLEXPEN 15 UNITS SC ×3 (08:35→17:39)
--- NOTE | 2024-07-17 08:38 | PHA.VAN.FU ---
Vancomycin Assessment / Plan
- Assessment
Renal Function: Stable
WBC's are: Stable
In the past 24 hrs, patient has been: Afebrile
Concomitant Antimicrobials: cefazolin
- Dosing Plan
Continue: vancomyucin 1000 mg q12h - first dose AM 07/16/24
- Monitoring Plan
No level(s) ordered at this time: consider level after at least 6 doses ( Sat PM)
- Follow Up
Pharmacy will continue to follow.
Vancomycin Follow UP
- -
Patient Age: 63
Patient Sex: Female
Vancomycin Day #: 2
Indication: Skin And Soft Tissue
Requesting Provider: Dr. Meza
Pertinent Antimicrobial Allergies:
no pertinent antibiotic allergies
Height / Weight:
Height 5 ft 2 in
Actual Weight 95.51 kg
Pertinent Past Medical History: BMI ~38.5; s/p RLE hardware removal, ankle reduction
- Vital Signs / Lab Results
Temp Pulse Resp BP Pulse Ox
98.3 F 79 20 143/66 98
07/17/24 07:45 07/17/24 07:45 07/17/24 07:45 07/17/24 07:45 07/17/24 07:45
Lab Results - Hematology
07/14/24 07/15/24 07/16/24
20:41 05:12 05:02
WBC 11.7 H 9.6 12.9 H
07/17/24
05:02
WBC 12.9 H
Lab Results - Chemistry
07/14/24 07/15/24 07/16/24
20:41 05:12 05:02
BUN 32 H 28 H 24 H
Creatinine 0.8 0.7 0.8
Estimated Creat Clear 78 89 78
Albumin 4.1
07/17/24
05:02
BUN 21 H
Creatinine 0.9
Estimated Creat Clear 69
Albumin
Microbiology Results
07/15/24 19:00 Gram Stain - Preliminary
Ankle - Right
--- NOTE | 2024-07-17 09:46 | W.PN.HOSP.TC ---
Today's Communication/Plan
-
see A/P
Assessment / Plan
Assessment / Plan
HPI: 63-year-old female with PMH T2DM, Anxiety /depression s/p complicated Right ankle fracture underwent ORIF in January 2024 (Dr Marques), p/w R ankle pain. 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 Patient stated she has been unable
to bear weight on right ankle since.
A/P:
# R ankle pain 2/2 Fractured metallic plate of the medial distal right tibia
# Increased displacement of the posterior and medial malleolar fractures
s/p OR RLE hardware removal, ankle reduction, external fixator application 07/[address] Marques.
Follow up 1x culture, and 2x pathology from OR
for now, cover with empiric Vancomycin and ancef
Per consulting engineer, depending on culture and path report, to decide if pt needs additional surgery or not
NWB to RLE
PT/OT eval
# IDDM
c/w Lantus 28U HS, Aspart 15 units AC
Carb control diet
cover with ISS low
# Essential hypertension
c/w STEAM TURBINE OPERATOR lisinopril, amlodipine, labetalol with holding parameter
DVT prophylaxis: lovenox SQ
Full code.
DW Handbag Designer
DW RN
Anticipated Discharge: > 48 hours
Subjective/Interval History
-
Date of Service: July 17, 2024
Objective Data
-
Labs:
Laboratory Results
07/17/24
05:02
WBC 12.9 H
Hgb 11.5 L
Hct 35.3 L
Plt Count 304
Sodium 144
Potassium 4.3
Chloride 101
Carbon Dioxide 29
BUN 21 H
Creatinine 0.9
Glucose 151 H
Calcium 9.3
Vital Signs:
Vital Signs
Temp Pulse Resp BP Pulse Ox
36.8 C 79 20 143/66 98
07/17/24 07:45 07/17/24 07:45 07/17/24 07:45 07/17/24 07:45 07/17/24 07:45
I&O
07/16/24 07/17/24 07/18/24
06:59 06:59 06:59
Intake Total 1010 / 1010 2459
Balance 1010 / 1010 2459
Review of Systems
-
All other systems: Reviewed and negative
Physical Exam
-
General: Well Developed, No Apparent Distress, Comfortable, Conversant and Obese
HEENT: Normocephalic, Atraumatic and Moist Mucous Membranes
Respiratory: Clear to Auscultation and Non Labored Respirations; Negative Accessory Resp Muscle Use
Cardiac: Regular Rhythm and S1/S2; Negative Murmur, Rub or Gallop
GI: Soft, Nontender, Nondistended and Normal Bowel Sounds; Negative Organomegaly
Rectal: Deferred by Provider
Musculoskeletal: Other (R ankle in external fixation)
Skin: Negative Rash
Neuro: Awake and Alert
Psych: Calm and Intact Judgement/Insight
Data Reviewed
-
CT Scan: Report Reviewed by me
Labs: Labs Reviewed by me
[2024-07-17 11:39] LABS: Glucose - Point of Care 138 mg/dl (70-99)
--- NOTE | 2024-07-17 11:57 | CM ---
Addendum entered by Inga Dunn 07/17/24 14:21:
Referrals entered in [facility] for BVSAMIR, Jose Adames & Sheri Daniels
CM to follow up
Original Note:
Met with patient at bedside.
Await cx, cont on Vanco
States sister took list of SNF options - will return to give CM preferences of SNF to place in [facility].
WILL NEED INSURANCE AUTHORIZATION
PLAN: SNF, will need ins auth
[2024-07-17 13:01] VITALS: BP 131/74; PULSE 86; O2SAT 97
[2024-07-17 15:11] VITALS: BP 143/68
[2024-07-17] MEDS: TYLENOL 650 MG PO (16:33)
[2024-07-17] MEDS: LOVENOX 40 MG SC (17:24)
[2024-07-17 17:35] LABS: Glucose - Point of Care 146 mg/dl (70-99)
[2024-07-17 21:16] LABS: Glucose - Point of Care 176 mg/dl (70-99)
[2024-07-17] MEDS: LIPITOR 20 MG PO (21:21)
[2024-07-17] MEDS: NEURONTIN 300 MG PO (21:21)
[2024-07-17] MEDS: LANTUS 0.28 UNITS SC (21:24)
[2024-07-17 23:47] VITALS: BP 117/59
[2024-07-18] MEDS: ANCEF 5 IV ×3 (02:27→18:01)
[2024-07-18] MEDS: ROXICODONE 5 MG PO ×3 (02:32→17:59)
[2024-07-18 05:22] LABS: Hematocrit 32.2 % (37.0-47.0); Hemoglobin 10.4 g/dL (12.0-16.0); Mean Corp Hgb Conc. 32.3 g/dL (33.0-37.0); Mean Corpuscular Hgb 26.7 pg (27.0-31.0); Mean Corpuscular Volume 82.8 fL (81.0-99.0); Mean Platelet Volume 9.3 fL (7.4-10.4); Platelet Count 298 10^3/uL (130-400); Red Blood Cell Count 3.89 10^6/uL (4.20-5.40); Red Cell Dist. Width 15.2 % (11.5-14.5)
[2024-07-18] MEDS: VANCOCIN 200 IV ×2 (05:42→18:00)
[2024-07-18 05:48] LABS: Blood Urea Nitrogen 21 mg/dl (7-17); Carbon Dioxide 30 mmol/L (22-30); Chloride 100 mmol/L (98-107); Estimated Creatinine Clearance 78 ml/min; Glucose 158 mg/dl (70-99); Magnesium 1.7 mg/dl (1.6-2.3); Potassium 4.7 mmol/L (3.5-5.1); Sodium 140 mmol/L (135-145); eGFR > 60.00
[2024-07-18 07:07] LABS: Glucose - Point of Care 185 mg/dl (70-99)
[2024-07-18 07:56] VITALS: BP 116/68
[2024-07-18] MEDS: OSCAL 500 + D 500 MG PO (08:06)
[2024-07-18] MEDS: VITAMIN D3 (cholecalciferol) 50 MCG PO (08:06)
[2024-07-18] MEDS: TRANDATE 100 MG PO ×2 (08:06→22:59)
[2024-07-18] MEDS: NORVASC 5 MG PO ×2 (08:06→22:59)
[2024-07-18] MEDS: PROTONIX 40 MG PO (08:06)
[2024-07-18] MEDS: CYMBALTA DELAYED RELEASE 60 MG PO (08:06)
[2024-07-18] MEDS: THERAGRAN 1 TABLET PO (08:06)
[2024-07-18] MEDS: ZESTRIL 20 MG PO ×2 (08:07→22:59)
[2024-07-18] MEDS: NOVOLOG FLEXPEN 15 UNITS SC ×2 (08:15→12:29)
--- NOTE | 2024-07-18 10:12 | PHA.VAN.FU ---
Vancomycin Assessment / Plan
- Assessment
Renal Function: Stable
WBC's are: WNL
In the past 24 hrs, patient has been: Afebrile
Concomitant Antimicrobials: cefazolin
- Dosing Plan
Continue: vancomycin 1000 mg q12h
- Monitoring Plan
Peak Level: 07/18/24 2030 - after 6th dose
Trough Level: 07/19/24 0530
- Follow Up
Pharmacy will continue to follow.
Vancomycin Follow UP
- -
Patient Age: 63
Patient Sex: Female
Vancomycin Day #: 3
Indication: Skin And Soft Tissue
Requesting Provider: Dr. Meza
Pertinent Antimicrobial Allergies:
no pertinent antibiotic allergies
Height / Weight:
Height 5 ft 2 in
Actual Weight 95.51 kg
Pertinent Past Medical History: BMI ~38.5; s/p RLE hardware removal, ankle reduction
- Vital Signs / Lab Results
Temp Pulse Resp BP Pulse Ox
98.3 F 83 14 116/68 94
07/18/24 07:56 07/18/24 08:07 07/18/24 07:56 07/18/24 08:07 07/18/24 07:56
Lab Results - Hematology
07/16/24 07/17/24 07/18/24
05:02 05:02 05:11
WBC 12.9 H 12.9 H 10.0
Lab Results - Chemistry
07/16/24 07/17/24 07/18/24
05:02 05:02 05:11
BUN 24 H 21 H 21 H
Creatinine 0.8 0.9 0.8
Estimated Creat Clear 78 69 78
Microbiology Results
07/15/24 19:00 Anaerobic Culture - Preliminary
Ankle - Right Culture pending. Anaerobic cultures are examined after 3
days incubation. Additional information to follow.
07/15/24 19:00 Wound Culture - Preliminary
Ankle - Right No growth
Gram Stain - Preliminary
--- NOTE | 2024-07-18 10:50 | W.PN.HOSP.TC ---
Today's Communication/Plan
-
see A/P
Assessment / Plan
Assessment / Plan
HPI: 63-year-old female with PMH T2DM, Anxiety /depression s/p complicated Right ankle fracture underwent ORIF in January 2024 (Dr Marques), p/w R ankle pain. 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 Patient stated she has been unable
to bear weight on right ankle since.
A/P:
# R ankle pain 2/2 Fractured metallic plate of the medial distal right tibia
# Increased displacement of the posterior and medial malleolar fractures
s/p OR RLE hardware removal, ankle reduction, external fixator application 07/[address] Marques.
Follow up culture, so far no growth
Follow up pathology from OR
for now, cover with empiric Vancomycin and ancef
Per setter out, depending on culture and path report, to decide if pt needs additional surgery or not
NWB to RLE
PT/OT eval
# IDDM
c/w Lantus 28U HS, Aspart 15 units AC
Carb control diet
cover with ISS low
# Essential hypertension
c/w COMMERCIAL COLLECTOR lisinopril, amlodipine, labetalol with holding parameter
DVT prophylaxis: lovenox SQ
Full code.
Anticipated Discharge: > 48 hours
Subjective/Interval History
-
Date of Service: July 18, 2024
Objective Data
-
Labs:
Laboratory Results
07/18/24
05:11
WBC 10.0
Hgb 10.4 L
Hct 32.2 L
Plt Count 298
Sodium 140
Potassium 4.7
Chloride 100
Carbon Dioxide 30
BUN 21 H
Creatinine 0.8
Glucose 158 H
Calcium 9.0
Vital Signs:
Vital Signs
Temp Pulse Resp BP Pulse Ox
36.8 C 83 14 116/68 94
07/18/24 07:56 07/18/24 08:07 07/18/24 07:56 07/18/24 08:07 07/18/24 07:56
I&O
07/17/24 07/18/24 07/19/24
06:59 06:59 06:59
Intake Total 0 / 0 2199
Balance 2460 / 0 2199
Review of Systems
-
All other systems: Reviewed and negative
Physical Exam
-
General: Well Developed, No Apparent Distress, Comfortable, Conversant and Obese
HEENT: Normocephalic, Atraumatic and Moist Mucous Membranes
Respiratory: Clear to Auscultation and Non Labored Respirations; Negative Accessory Resp Muscle Use
Cardiac: Regular Rhythm and S1/S2; Negative Murmur, Rub or Gallop
GI: Soft, Nontender, Nondistended and Normal Bowel Sounds; Negative Organomegaly
Rectal: Deferred by Provider
Musculoskeletal: Other (R ankle in external fixation)
Skin: Negative Rash
Neuro: Awake and Alert
Psych: Calm and Intact Judgement/Insight
Data Reviewed
-
CT Scan: Report Reviewed by me
Labs: Labs Reviewed by me
[2024-07-18 11:56] LABS: Glucose - Point of Care 192 mg/dl (70-99)
[2024-07-18 16:07] VITALS: BP 118/76
[2024-07-18 16:58] LABS: Glucose - Point of Care 101 mg/dl (70-99)
[2024-07-18] MEDS: NOVOLOG FLEXPEN SC (17:56)
[2024-07-18] MEDS: LOVENOX 40 MG SC (18:00)
--- NOTE | 2024-07-18 20:00 | PTCARENOTE ---
Vancomycin finishing at this time d/t previous IV site issues.
[2024-07-18 20:08] VITALS: BP 112/66
[2024-07-18 21:27] LABS: Glucose - Point of Care 222 mg/dl (70-99)
[2024-07-18 22:34] VITALS: BP 123/69
[2024-07-18] MEDS: LANTUS 0.28 UNITS SC (22:53)
[2024-07-18] MEDS: NEURONTIN 300 MG PO (22:54)
[2024-07-18] MEDS: LIPITOR 20 MG PO (22:54)
[2024-07-18 23:28] LABS: Vancomycin Peak 19.2 ug/ml (18-26)
[2024-07-19] MEDS: ANCEF 5 IV ×3 (01:01→17:04)
[2024-07-19] MEDS: TYLENOL 650 MG PO (01:01)
[2024-07-19] MEDS: ROXICODONE 5 MG PO ×4 (01:01→23:45)
[2024-07-19] MEDS: FLUSH (NSS) 2 FLUSH IV (01:01)
[2024-07-19] MEDS: VANCOCIN 200 IV ×2 (06:18→17:03)
[2024-07-19 06:39] LABS: Hematocrit 32.1 % (37.0-47.0); Hemoglobin 10.3 g/dL (12.0-16.0); Mean Corp Hgb Conc. 32.1 g/dL (33.0-37.0); Mean Corpuscular Hgb 26.8 pg (27.0-31.0); Mean Corpuscular Volume 83.6 fL (81.0-99.0); Mean Platelet Volume 9.3 fL (7.4-10.4); Platelet Count 319 10^3/uL (130-400); Red Blood Cell Count 3.84 10^6/uL (4.20-5.40); Red Cell Dist. Width 15.4 % (11.5-14.5); White Blood Cell Count 10.7 10^3/uL (4.8-10.8)
[2024-07-19 06:54] LABS: Vancomycin Trough 14.7 ug/ml (5-20)
[2024-07-19 07:00] VITALS: BP 124/74
[2024-07-19 07:07] LABS: Blood Urea Nitrogen 27 mg/dl (7-17); Calcium 9.2 mg/dl (8.4-10.2); Carbon Dioxide 32 mmol/L (22-30); Chloride 97 mmol/L (98-107); Estimated Creatinine Clearance 69 ml/min; Glucose 149 mg/dl (70-99); Potassium 4.7 mmol/L (3.5-5.1); Sodium 139 mmol/L (135-145); eGFR > 60.00
[2024-07-19 07:50] LABS: Glucose - Point of Care 180 mg/dl (70-99)
[2024-07-19] MEDS: NOVOLOG FLEXPEN 15 UNITS SC ×3 (08:07→17:02)
[2024-07-19] MEDS: OSCAL 500 + D 500 MG PO (08:07)
[2024-07-19] MEDS: PROTONIX 40 MG PO (08:07)
[2024-07-19] MEDS: CYMBALTA DELAYED RELEASE 60 MG PO (08:07)
[2024-07-19] MEDS: ZESTRIL 20 MG PO (08:07)
[2024-07-19] MEDS: TRANDATE 100 MG PO (08:08)
[2024-07-19] MEDS: VITAMIN D3 (cholecalciferol) 50 MCG PO (08:08)
[2024-07-19] MEDS: THERAGRAN 1 TABLET PO (08:08)
[2024-07-19] MEDS: NORVASC 5 MG PO ×2 (08:08→20:26)
[2024-07-19 09:14] VITALS: BP 117/62; PULSE 84
--- NOTE | 2024-07-19 09:16 | PHA.VAN.FU ---
Vancomycin Assessment / Plan
- Assessment
Renal Function: Stable
WBC's are: WNL
In the past 24 hrs, patient has been: Afebrile
Concomitant Antimicrobials: cefazolin
- Assessment - Therapeutic Drug Monitoring
Extrapolated Cmax (mcg/mL): 22.9
Peak level was drawn: More than 3 hours after previous dose
Extrapolated Cmin (mcg/mL): 14
Trough Drawn: Appropriately
Levels were drawn: At steady state
Calculated AUC (mcg*h/mL): 435
Calculated ke: 0.0444
Calculated half life (H): 15.6
Calculated Vd (L): 103.53
Calculated Vanc CL (ml/min): 76.59
since peak was drawn more than hours after dose ended, calculations may not be accurate. Since trough was drawn correctly and is appropriate will continue current dose for now
- Monitoring Plan
Level(s) appropriate: Recheck trough at minimum of weekly intervals, Repeat sooner for changes in renal function or clinical status (trough level appropriate - continue current dose)
- Follow Up
Pharmacy will continue to follow.
Vancomycin Follow UP
- -
Patient Age: 63
Patient Sex: Female
Vancomycin Day #: 4
Indication: Skin And Soft Tissue
Requesting Provider: Dr. Meza
Pertinent Antimicrobial Allergies:
no pertinent antibiotic allergies
Height / Weight:
Height 5 ft 2 in
Actual Weight 95.51 kg
Pertinent Past Medical History: BMI ~38.5; s/p RLE hardware removal, ankle reduction
- Vital Signs / Lab Results
Temp Pulse Resp BP Pulse Ox
97.2 F 80 22 125/74 98
07/19/24 07:00 07/19/24 08:08 07/19/24 07:00 07/19/24 08:08 07/19/24 07:00
Lab Results - Hematology
07/17/24 07/18/24 07/19/24
05:02 05:11 04:58
WBC 12.9 H 10.0 10.7
Lab Results - Chemistry
07/17/24 07/18/24 07/19/24
05:02 05:11 04:58
BUN 21 H 21 H 27 H
Creatinine 0.9 0.8 0.9
Estimated Creat Clear 69 78 69
Microbiology Results
07/15/24 19:00 Wound Culture - Preliminary
Ankle - Right No growth
Gram Stain - Preliminary
07/15/24 19:00 Anaerobic Culture - Preliminary
Ankle - Right Culture pending. Anaerobic cultures are examined after 3
days incubation. Additional information to follow.
Therapeutic Drug Monitoring
Vancomycin Peak 19.2 ug/ml (18-26) 07/18/24 22:57
Vancomycin Trough 14.7 ug/ml (5-20) 07/19/24 04:58
--- NOTE | 2024-07-19 10:52 | W.PN.HOSP.TC ---
Today's Communication/Plan
-
see A/P
Assessment / Plan
Assessment / Plan
HPI: 63-year-old female with PMH T2DM, Anxiety /depression s/p complicated Right ankle fracture underwent ORIF in January 2024 (Dr Marques), p/w R ankle pain. 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 Patient stated she has been unable
to bear weight on right ankle since.
A/P:
# R ankle pain 2/2 Fractured metallic plate of the medial distal right tibia
# Increased displacement of the posterior and medial malleolar fractures
s/p OR RLE hardware removal, ankle reduction, external fixator application 07/[address] Marques.
Follow up culture, so far no growth
Follow up pathology from OR
for now, cover with empiric Vancomycin and ancef.
Per blanket cutter hand, depending on culture and path report, to decide if pt needs additional surgery or not
NWB to RLE
PT/OT eval
# IDDM
c/w Lantus 28U HS, Aspart 15 units AC
Carb control diet
cover with ISS low
# Essential hypertension
c/w MEMBER SERVICES REPRESENTATIVE lisinopril, amlodipine, labetalol with holding parameter
DVT prophylaxis: lovenox SQ
Full code.
Anticipated Discharge: > 48 hours
Subjective/Interval History
-
Date of Service: July 19, 2024
Objective Data
-
Labs:
Laboratory Results
07/19/24
04:58
WBC 10.7
Hgb 10.3 L
Hct 32.1 L
Plt Count 319
Sodium 139
Potassium 4.7
Chloride 97 L
Carbon Dioxide 32 H
BUN 27 H
Creatinine 0.9
Glucose 149 H
Calcium 9.2
Vital Signs:
Vital Signs
Temp Pulse Resp BP Pulse Ox
36.2 C 80 22 125/74 98
07/19/24 07:00 07/19/24 08:08 07/19/24 07:00 07/19/24 08:08 07/19/24 07:00
I&O
07/18/24 07/19/24 07/20/24
06:59 06:59 06:59
Intake Total 0 / 0 1640 / 1640
Balance 0 / 0 1640 / 1640
Review of Systems
-
All other systems: Reviewed and negative
Physical Exam
-
General: Well Developed, No Apparent Distress, Comfortable, Conversant and Obese
HEENT: Normocephalic, Atraumatic and Moist Mucous Membranes
Respiratory: Clear to Auscultation and Non Labored Respirations; Negative Accessory Resp Muscle Use
Cardiac: Regular Rhythm and S1/S2; Negative Murmur, Rub or Gallop
GI: Soft, Nontender, Nondistended and Normal Bowel Sounds; Negative Organomegaly
Rectal: Deferred by Provider
Musculoskeletal: Other (R ankle in external fixation)
Skin: Negative Rash
Neuro: Awake and Alert
Psych: Calm and Intact Judgement/Insight
Data Reviewed
-
CT Scan: Report Reviewed by me
Labs: Labs Reviewed by me
[2024-07-19 10:57] VITALS: BP 124/74
[2024-07-19 11:38] LABS: Glucose - Point of Care 165 mg/dl (70-99)
[2024-07-19 14:59] VITALS: BP 122/66
[2024-07-19 16:45] LABS: Glucose - Point of Care 164 mg/dl (70-99)
[2024-07-19] MEDS: LOVENOX 40 MG SC (17:02)
[2024-07-19] MEDS: NEURONTIN 300 MG PO (20:26)
[2024-07-19] MEDS: LIPITOR 20 MG PO (20:26)
[2024-07-19] MEDS: TRANDATE PO (20:53)
[2024-07-19] MEDS: ZESTRIL PO (20:53)
--- NOTE | 2024-07-19 20:53 | PTCARENOTE ---
b/p meds held not within parameters, b/p 111/46, educated pt and pt verbalized understanding and refusal of meds as she expresses her b/p drops really quick she expressed she has had hypotensive issues.
[2024-07-19 21:58] LABS: Glucose - Point of Care 128 mg/dl (70-99)
[2024-07-19] MEDS: LANTUS 0.28 UNITS SC (22:27)
[2024-07-19 23:10] VITALS: BP 93/54
[2024-07-20] MEDS: ANCEF 5 IV ×3 (01:57→17:25)
[2024-07-20] MEDS: ROXICODONE 5 MG PO ×4 (04:01→21:18)
[2024-07-20 04:11] VITALS: BP 133/63
[2024-07-20] MEDS: VANCOCIN 200 IV ×2 (05:26→17:25)
[2024-07-20 06:51] LABS: Hemoglobin 10.6 g/dL (12.0-16.0); Mean Corp Hgb Conc. 32.1 g/dL (33.0-37.0); Mean Corpuscular Hgb 27.5 pg (27.0-31.0); Mean Corpuscular Volume 85.7 fL (81.0-99.0); Mean Platelet Volume 9.6 fL (7.4-10.4); Platelet Count 308 10^3/uL (130-400); Red Blood Cell Count 3.85 10^6/uL (4.20-5.40)
[2024-07-20 07:14] LABS: Blood Urea Nitrogen 26 mg/dl (7-17); Calcium 9.1 mg/dl (8.4-10.2); Carbon Dioxide 30 mmol/L (22-30); Chloride 99 mmol/L (98-107); Estimated Creatinine Clearance 78 ml/min; Glucose 145 mg/dl (70-99); Potassium 4.4 mmol/L (3.5-5.1); Sodium 141 mmol/L (135-145); eGFR > 60.00
[2024-07-20 07:40] VITALS: BP 164/91
[2024-07-20] MEDS: VITAMIN D3 (cholecalciferol) 50 MCG PO (08:58)
[2024-07-20] MEDS: THERAGRAN 1 TABLET PO (08:58)
[2024-07-20] MEDS: OSCAL 500 + D 500 MG PO (08:58)
[2024-07-20] MEDS: TRANDATE 100 MG PO ×2 (08:58→19:38)
[2024-07-20] MEDS: PROTONIX 40 MG PO (08:58)
[2024-07-20] MEDS: CYMBALTA DELAYED RELEASE 60 MG PO (08:58)
[2024-07-20] MEDS: ZESTRIL 20 MG PO ×2 (08:59→19:38)
[2024-07-20] MEDS: NORVASC 5 MG PO ×2 (08:59→19:38)
[2024-07-20] MEDS: NOVOLOG FLEXPEN 15 UNITS SC ×3 (09:02→18:35)
[2024-07-20 09:03] LABS: Glucose - Point of Care 177 mg/dl (70-99)
--- NOTE | 2024-07-20 10:16 | PHA.VAN.FU ---
Vancomycin Assessment / Plan
- Assessment
Renal Function: Stable
WBC's are: Stable
In the past 24 hrs, patient has been: Afebrile
Concomitant Antimicrobials: cefazolin
- Dosing Plan
Continue: vancomycin 1000 mg q12h
- Monitoring Plan
Level(s) appropriate: Recheck trough at minimum of weekly intervals, Repeat sooner for changes in renal function or clinical status
- Follow Up
Pharmacy will continue to follow.
Vancomycin Follow UP
- -
Patient Age: 63
Patient Sex: Female
Vancomycin Day #: 5
Indication: Skin And Soft Tissue
Requesting Provider: Dr. Meza
Pertinent Antimicrobial Allergies:
no pertinent antibiotic allergies
Height / Weight:
Height 5 ft 2 in
Actual Weight 95.51 kg
Pertinent Past Medical History: BMI ~38.5; s/p RLE hardware removal, ankle reduction
- Vital Signs / Lab Results
Temp Pulse Resp BP Pulse Ox
98.7 F 102 18 131/79 95
07/20/24 07:40 07/20/24 07:40 07/20/24 07:40 07/20/24 08:59 07/20/24 07:40
Lab Results - Hematology
07/18/24 07/19/24 07/20/24
05:11 04:58 04:32
WBC 10.0 10.7 11.0 H
Lab Results - Chemistry
07/18/24 07/19/24 07/20/24
05:11 04:58 04:32
BUN 21 H 27 H 26 H
Creatinine 0.8 0.9 0.8
Estimated Creat Clear 78 69 78
Microbiology Results
07/15/24 19:00 Anaerobic Culture - Preliminary
Ankle - Right Culture pending. Anaerobic cultures are examined after 3
days incubation. Additional information to follow.
07/15/24 19:00 Wound Culture - Preliminary
Ankle - Right No growth
Gram Stain - Preliminary
Therapeutic Drug Monitoring
Vancomycin Peak 19.2 ug/ml (18-26) 07/18/24 22:57
Vancomycin Trough 14.7 ug/ml (5-20) 07/19/24 04:58
[2024-07-20 11:17] VITALS: BP 141/73; PULSE 89; O2SAT 96
[2024-07-20 11:46] LABS: Glucose - Point of Care 243 mg/dl (70-99)
[2024-07-20] MEDS: MIRALAX 17 GRAMS PO (12:28)
--- NOTE | 2024-07-20 12:28 | W.PN.HOSP.TC ---
Today's Communication/Plan
-
Monitor vital signs see plan
Continue with antibiotics for now
Defer to podiatry regarding further surgery
PT/OT
Assessment / Plan
Assessment / Plan
HPI: 63-year-old female with PMH T2DM, Anxiety /depression s/p complicated Right ankle fracture underwent ORIF in January 2024 (Dr Marques), p/w R ankle pain. 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 Patient stated she has been unable
to bear weight on right ankle since.
A/P:
# R ankle pain 2/2 Fractured metallic plate of the medial distal right tibia
# Increased displacement of the posterior and medial malleolar fractures
s/p OR RLE hardware removal, ankle reduction, external fixator application 07/[address] Marques.
Follow up culture, so far no growth
Follow up pathology from OR
for now, cover with empiric Vancomycin and ancef.
Per roll mill operator, depending on culture and path report, to decide if pt needs additional surgery or not
NWB to RLE
PT/OT eval
# IDDM
c/w Lantus 28U HS, Aspart 15 units AC
Carb control diet
cover with ISS low
# Essential hypertension
c/w RAISE DRILLER lisinopril, amlodipine, labetalol with holding parameter
DVT prophylaxis: lovenox SQ
Full code.
General: Well Developed, No Apparent Distress, Comfortable, Conversant and Obese
HEENT: Normocephalic, Atraumatic and Moist Mucous Membranes
Respiratory: Clear to Auscultation and Non Labored Respirations; Negative Accessory Resp Muscle Use
Cardiac: Regular Rhythm and S1/S2; Negative Murmur, Rub or Gallop
GI: Soft, Nontender, Nondistended and Normal Bowel Sounds; Negative Organomegaly
Rectal: Deferred by Provider
Musculoskeletal: Other (R ankle in external fixation)
Skin: Negative Rash
Neuro: Awake and Alert
Psych: Calm and Intact Judgement/Insight
Anticipated Discharge: > 48 hours
Subjective/Interval History
-
Date of Service: July 20, 2024
denies nausea
Objective Data
-
Labs:
Laboratory Results
07/20/24
04:32
WBC 11.0 H
Hgb 10.6 L
Hct 33.0 L
Plt Count 308
Sodium 141
Potassium 4.4
Chloride 99
Carbon Dioxide 30
BUN 26 H
Creatinine 0.8
Glucose 145 H
Calcium 9.1
Vital Signs:
Vital Signs
Temp Pulse Resp BP Pulse Ox
98.7 F 102 18 131/79 95
07/20/24 07:40 07/20/24 07:40 07/20/24 07:40 07/20/24 08:59 07/20/24 07:40
I&O
07/19/24 07/20/24 07/21/24
06:59 06:59 06:59
Intake Total 1640 / 1640 3540 / 3540
Balance 1640 / 1640 3540 / 3540
--- NOTE | 2024-07-20 15:21 | CM ---
Case management following for discharge planning
Chart reviewed
PT/OT recs - SNF - accepted at [facility]
Remains on Antibiotics
Podiatry following
Plan - SNF when medically ready
--- NOTE | 2024-07-20 17:24 | W.PN.UPDATE ---
Update Note
Progress Note Update
s/p Pilon fracture hardware removal and Ex Fix application
-Dressings changed
-Will plan for frame removal and definitive operative care (intramedullary ankle nail) once pathology is negative, likely 07/22 vs 07/23 pm
-Continue IV Abx
-Strict NWB RLE
-Will follow
[2024-07-20] MEDS: LOVENOX 40 MG SC (17:26)
[2024-07-20] MEDS: FLUSH (NSS) 3 FLUSH IV (17:27)
[2024-07-20 17:36] LABS: Glucose - Point of Care 158 mg/dl (70-99)
[2024-07-20] MEDS: NEURONTIN 300 MG PO (21:18)
[2024-07-20] MEDS: LANTUS 0.28 UNITS SC (21:18)
[2024-07-20] MEDS: LIPITOR 20 MG PO (21:18)
[2024-07-20 21:19] LABS: Glucose - Point of Care 110 mg/dl (70-99)
[2024-07-20 23:03] VITALS: BP 118/60
[2024-07-21] MEDS: ANCEF 5 IV ×3 (01:05→18:01)
[2024-07-21] MEDS: ROXICODONE 5 MG PO ×4 (02:04→22:26)
[2024-07-21] MEDS: VANCOCIN 200 IV ×2 (05:29→17:59)
[2024-07-21 07:14] LABS: % Basophils 0.6 % (0-2); % Immature Granulocytes 0.6 % (0-0.5); % Lymphocytes 29.5 % (20.5-51.1); % Monocytes 8.4 % (1.7-9.3); % Neutrophils 58.9 % (42.2-75.2); Absolute Basophils 0.1 10^3/uL (0-0.2); Absolute Eosinophils 0.2 10^3/uL (0-0.7); Absolute Immature Granulocytes 0.1 10^3/uL (0-0.05); Absolute Lymphocytes 3.2 10^3/uL (1.2-3.4); Absolute Monocytes 0.9 10^3/uL (0.1-0.6); Absolute Neutrophils 6.4 10^3/uL (1.4-6.5); Hematocrit 29.5 % (37.0-47.0); Hemoglobin 9.5 g/dL (12.0-16.0); Mean Corp Hgb Conc. 32.2 g/dL (33.0-37.0); Mean Corpuscular Hgb 27.5 pg (27.0-31.0); Mean Corpuscular Volume 85.5 fL (81.0-99.0); Mean Platelet Volume 9.6 fL (7.4-10.4); Nucleated Red Blood Cells % 0 %; Platelet Count 291 10^3/uL (130-400); Red Blood Cell Count 3.45 10^6/uL (4.20-5.40); Red Cell Dist. Width 15.2 % (11.5-14.5); White Blood Cell Count 10.9 10^3/uL (4.8-10.8)
[2024-07-21 07:34] LABS: Blood Urea Nitrogen 23 mg/dl (7-17); Carbon Dioxide 30 mmol/L (22-30); Chloride 98 mmol/L (98-107); Estimated Creatinine Clearance 69 ml/min; Glucose 134 mg/dl (70-99); Potassium 4.3 mmol/L (3.5-5.1); Sodium 140 mmol/L (135-145); eGFR > 60.00
[2024-07-21 07:49] LABS: Glucose - Point of Care 147 mg/dl (70-99)
[2024-07-21 08:00] VITALS: BP 121/71
[2024-07-21] MEDS: NOVOLOG FLEXPEN SC (08:04)
[2024-07-21] MEDS: NORVASC 5 MG PO (09:06)
[2024-07-21] MEDS: CYMBALTA DELAYED RELEASE 60 MG PO (09:06)
[2024-07-21] MEDS: PROTONIX 40 MG PO (09:06)
[2024-07-21] MEDS: VITAMIN D3 (cholecalciferol) 50 MCG PO (09:06)
[2024-07-21] MEDS: MIRALAX 17 GRAMS PO (09:06)
[2024-07-21] MEDS: TRANDATE 100 MG PO (09:06)
[2024-07-21] MEDS: THERAGRAN 1 TABLET PO (09:07)
[2024-07-21] MEDS: OSCAL 500 + D 500 MG PO (09:07)
--- NOTE | 2024-07-21 09:18 | PHA.VAN.FU ---
Vancomycin Assessment / Plan
- Assessment
Renal Function: Stable
WBC's are: Stable
In the past 24 hrs, patient has been: Afebrile
Concomitant Antimicrobials: cefazolin
- Dosing Plan
Continue: Vanc 1000mg Q12H
- Monitoring Plan
Peak Level: 07/21 20:30
Trough Level: 07/22 05:30
Monitoring Comments: levels to be drawn after 12th maintenance dose
Repeating levels because half-life was prolonged 07/19 and unclear if due to peak being drawn late or if patient will have additional accumulation
- Follow Up
Pharmacy will continue to follow.
Vancomycin Follow UP
- -
Patient Age: 63
Patient Sex: Female
Vancomycin Day #: 6
Indication: Skin And Soft Tissue
Requesting Provider: Dr. Meza
Pertinent Antimicrobial Allergies:
no pertinent antibiotic allergies
Height / Weight:
Height 5 ft 2 in
Actual Weight 95.51 kg
Pertinent Past Medical History: BMI ~38.5; s/p RLE hardware removal, ankle reduction
- Vital Signs / Lab Results
Temp Pulse Resp BP Pulse Ox
98.2 F 76 16 121/71 99
07/21/24 08:00 07/21/24 08:00 07/21/24 08:00 07/21/24 08:00 07/21/24 08:00
Lab Results - Hematology
07/19/24 07/20/24 07/21/24
04:58 04:32 04:39
WBC 10.7 11.0 H 10.9 H
Lab Results - Chemistry
07/19/24 07/20/24 07/21/24
04:58 04:32 04:39
BUN 27 H 26 H 23 H
Creatinine 0.9 0.8 0.9
Estimated Creat Clear 69 78 69
Microbiology Results
07/15/24 19:00 Anaerobic Culture - Preliminary
Ankle - Right Culture pending. Anaerobic cultures are examined after 3
days incubation. Additional information to follow.
07/15/24 19:00 Wound Culture - Preliminary
Ankle - Right No growth
Gram Stain - Preliminary
Therapeutic Drug Monitoring
Vancomycin Peak 19.2 ug/ml (18-26) 07/18/24 22:57
Vancomycin Trough 14.7 ug/ml (5-20) 07/19/24 04:58
[2024-07-21] MEDS: ZESTRIL 20 MG PO (09:38)
[2024-07-21] MEDS: NOVOLOG FLEXPEN 15 UNITS SC ×3 (09:38→18:01)
--- NOTE | 2024-07-21 11:41 | W.PN.HOSP.TC ---
Today's Communication/Plan
-
Monitor vital signs see plan
Awaiting final culture
Podiatry to decide on further surgery
PT/OT
Pain control
Assessment / Plan
Assessment / Plan
HPI: 63-year-old female with PMH T2DM, Anxiety /depression s/p complicated Right ankle fracture underwent ORIF in January 2024 (Dr Marques), p/w R ankle pain. 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 Patient stated she has been unable
to bear weight on right ankle since.
A/P:
# R ankle pain 2/2 Fractured metallic plate of the medial distal right tibia
# Increased displacement of the posterior and medial malleolar fractures
s/p OR RLE hardware removal, ankle reduction, external fixator application 07/[address] Marques.
Follow up culture, so far no growth
Follow up pathology from OR
for now, cover with empiric Vancomycin and ancef.
Per associate director of nursing, depending on culture and path report, to decide if pt needs additional surgery or not
NWB to RLE
PT/OT eval
# IDDM
c/w Lantus 28U HS, Aspart 15 units AC
Carb control diet
cover with ISS low
# Essential hypertension
c/w COMMERCIAL ATTACHE lisinopril, amlodipine, labetalol with holding parameter
DVT prophylaxis: lovenox SQ
Full code.
General: Well Developed, No Apparent Distress, Comfortable, Conversant and Obese
HEENT: Normocephalic, Atraumatic and Moist Mucous Membranes
Respiratory: Clear to Auscultation and Non Labored Respirations; Negative Accessory Resp Muscle Use
Cardiac: Regular Rhythm and S1/S2; Negative Murmur, Rub or Gallop
GI: Soft, Nontender, Nondistended and Normal Bowel Sounds
Musculoskeletal: Other (R ankle in external fixation)
Neuro: Awake and Alert
Psych: Calm and Intact Judgement/Insight
Anticipated Discharge: > 48 hours
Subjective/Interval History
-
Date of Service: July 21, 2024
denies pain
Objective Data
-
Labs:
Laboratory Results
07/21/24
04:39
WBC 10.9 H
Hgb 9.5 L
Hct 29.5 L
Plt Count 291
Sodium 140
Potassium 4.3
Chloride 98
Carbon Dioxide 30
BUN 23 H
Creatinine 0.9
Glucose 134 H
Calcium 9.0
Vital Signs:
Vital Signs
Temp Pulse Resp BP Pulse Ox
98.2 F 76 16 121/71 99
07/21/24 08:00 07/21/24 08:00 07/21/24 08:00 07/21/24 08:00 07/21/24 08:00
I&O
07/20/24 07/21/24 07/22/24
06:59 06:59 06:59
Intake Total 3540 / 3540 1260 / 1260
Balance 3540 / 3540 1260 / 1260
--- NOTE | 2024-07-21 11:50 | CM ---
Met patient at bedside.
Continues with IV abx. ? further surgery
PT recommend SNF
[facility]ed [facility] as [facility] response [facility].
PLAN: SNF, pending bed availability
[2024-07-21 12:46] LABS: Glucose - Point of Care 168 mg/dl (70-99)
[2024-07-21 15:00] VITALS: BP 102/65
[2024-07-21 17:13] LABS: Glucose - Point of Care 74 mg/dl (70-99)
[2024-07-21] MEDS: LOVENOX 40 MG SC (18:01)
[2024-07-21] MEDS: NORVASC PO (20:57)
[2024-07-21] MEDS: TRANDATE PO (20:57)
[2024-07-21] MEDS: ZESTRIL PO (20:58)
[2024-07-21] MEDS: NEURONTIN 300 MG PO (21:00)
[2024-07-21] MEDS: LIPITOR 20 MG PO (21:00)
[2024-07-21 21:31] LABS: Glucose - Point of Care 114 mg/dl (70-99)
[2024-07-21 22:24] LABS: Vancomycin Peak 22.3 ug/ml (18-26)
[2024-07-21] MEDS: LANTUS 0.28 UNITS SC (22:26)
[2024-07-21 23:25] VITALS: BP 124/68
[2024-07-22] VITALS (12 sets, daily range): BP systolic 121–154; BP diastolic 44–81; BMI 38.6
[2024-07-22] MEDS: ANCEF 5 IV ×3 (01:51→19:19)
--- NOTE | 2024-07-22 03:52 | PTCARENOTE ---
PCT was changing pt bedding and found pt's vape under pillow. Pt gave PCT vape pen, told PCT it was CBD oil. PCT asked if pt had any other drugs with her, pt said no. Security was called to retrieve pt's vape pen. Pen placed in bag with pt label and
given to security.
[2024-07-22 06:32] LABS: % Basophils 0.6 % (0-2); % Eosinophils 1.8 % (0-6); % Immature Granulocytes 0.5 % (0-0.5); % Lymphocytes 24.1 % (20.5-51.1); % Monocytes 8.7 % (1.7-9.3); % Neutrophils 64.3 % (42.2-75.2); Absolute Basophils 0.1 10^3/uL (0-0.2); Absolute Eosinophils 0.2 10^3/uL (0-0.7); Absolute Immature Granulocytes 0.1 10^3/uL (0-0.05); Absolute Lymphocytes 2.7 10^3/uL (1.2-3.4); Absolute Neutrophils 7.1 10^3/uL (1.4-6.5); Hematocrit 32.3 % (37.0-47.0); Hemoglobin 10.4 g/dL (12.0-16.0); Mean Corp Hgb Conc. 32.2 g/dL (33.0-37.0); Mean Corpuscular Hgb 27.4 pg (27.0-31.0); Mean Platelet Volume 9.3 fL (7.4-10.4); Nucleated Red Blood Cells % 0 %; Platelet Count 310 10^3/uL (130-400); Red Cell Dist. Width 14.9 % (11.5-14.5); White Blood Cell Count 11.1 10^3/uL (4.8-10.8)
[2024-07-22 06:37] LABS: Blood Urea Nitrogen 22 mg/dl (7-17); Calcium 9.6 mg/dl (8.4-10.2); Carbon Dioxide 33 mmol/L (22-30); Chloride 99 mmol/L (98-107); Estimated Creatinine Clearance 69 ml/min; Glucose 165 mg/dl (70-99); Potassium 4.9 mmol/L (3.5-5.1); Sodium 140 mmol/L (135-145); eGFR > 60.00
[2024-07-22 06:41] LABS: Vancomycin Trough 13.5 ug/ml (5-20)
[2024-07-22] MEDS: VANCOCIN 200 IV ×2 (06:44→20:17)
[2024-07-22 07:26] LABS: Glucose - Point of Care 180 mg/dl (70-99)
--- NOTE | 2024-07-22 08:23 | PHA.VAN.FU ---
Vancomycin Assessment / Plan
- Assessment
Renal Function: Stable
WBC's are: Stable
In the past 24 hrs, patient has been: Afebrile
Concomitant Antimicrobials: cefazolin
- Assessment - Therapeutic Drug Monitoring
Extrapolated Cmax (mcg/mL): 26.3
Peak level was drawn: Appropriately (drawn ~2.8H after end of previous infusion)
Extrapolated Cmin (mcg/mL): 13.7
Trough Drawn: Appropriately
Levels were drawn: At steady state (levels drawn after 12th maintenance dose)
Calculated AUC (mcg*h/mL): 465
Calculated ke: 0.0590
Calculated half life (H): 11.7
Calculated Vd (L): 73 (0.76 L/kg)
Calculated Vanc CL (ml/min): 72
Repeat peak drawn at correct timing
Half-life appropriate to continue with Q12H interval
Trough remains stable - no accumulation
- Dosing Plan
Continue: Vanc 1000mg Q12H
- Monitoring Plan
Level(s) appropriate: Recheck trough at minimum of weekly intervals, Repeat sooner for changes in renal function or clinical status
Next Level Due (Date): ~07/29
- Follow Up
Pharmacy will continue to follow.
Vancomycin Follow UP
- -
Patient Age: 63
Patient Sex: Female
Vancomycin Day #: 7
Indication: Skin And Soft Tissue
Requesting Provider: Dr. Meza
Pertinent Antimicrobial Allergies:
no pertinent antibiotic allergies
Height / Weight:
Height 5 ft 2 in
Actual Weight 95.708 kg
Pertinent Past Medical History: BMI ~38.5; s/p RLE hardware removal, ankle reduction
- Vital Signs / Lab Results
Temp Pulse Resp BP Pulse Ox
98.6 F 83 15 145/71 96
07/22/24 07:22 07/22/24 07:22 07/22/24 07:22 07/22/24 07:22 07/22/24 07:22
Lab Results - Hematology
07/20/24 07/21/24 07/22/24
04:32 04:39 06:16
WBC 11.0 H 10.9 H 11.1 H
Lab Results - Chemistry
07/20/24 07/21/24 07/22/24
04:32 04:39 06:16
BUN 26 H 23 H 22 H
Creatinine 0.8 0.9 0.9
Estimated Creat Clear 78 69 69
Microbiology Results
07/15/24 19:00 Wound Culture - Final
Ankle - Right No growth
Gram Stain - Final
07/15/24 19:00 Anaerobic Culture - Final
Ankle - Right NO ANAEROBES ISOLATED
Therapeutic Drug Monitoring
Vancomycin Peak 22.3 ug/ml (18-26) 07/21/24 21:46
Vancomycin Trough 13.5 ug/ml (5-20) 07/22/24 06:16
[2024-07-22] MEDS: ROXICODONE 5 MG PO ×2 (08:28→22:57)
[2024-07-22] MEDS: CYMBALTA DELAYED RELEASE 60 MG PO (08:28)
[2024-07-22] MEDS: NOVOLOG FLEXPEN SC ×3 (08:28→15:42)
[2024-07-22] MEDS: ZESTRIL 20 MG PO ×2 (08:28→20:27)
[2024-07-22] MEDS: OSCAL 500 + D 500 MG PO (08:28)
[2024-07-22] MEDS: VITAMIN D3 (cholecalciferol) 50 MCG PO (08:28)
[2024-07-22] MEDS: NORVASC 5 MG PO ×2 (08:28→20:28)
[2024-07-22] MEDS: PROTONIX 40 MG PO (08:28)
[2024-07-22] MEDS: THERAGRAN 1 TABLET PO (08:29)
[2024-07-22] MEDS: MIRALAX 17 GRAMS PO (08:29)
[2024-07-22] MEDS: TRANDATE 100 MG PO ×2 (08:31→20:28)
--- NOTE | 2024-07-22 11:58 | W.PN.HOSP.TC ---
Today's Communication/Plan
-
Monitor vitals
See plan
Per podiatry orders, plan for OR today
PT/OT
DC antibiotics if okay with podiatry
Assessment / Plan
Assessment / Plan
HPI: 63-year-old female with PMH T2DM, Anxiety /depression s/p complicated Right ankle fracture underwent ORIF in January 2024 (Dr Marques), p/w R ankle pain. 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 Patient stated she has been unable
to bear weight on right ankle since.
A/P:
# R ankle pain 2/2 Fractured metallic plate of the medial distal right tibia
# Increased displacement of the posterior and medial malleolar fractures
s/p OR RLE hardware removal, ankle reduction, external fixator application 07/[address] Marques.
Follow up culture, so far no growth
Follow up pathology from OR neg for osteo
for now, cover with empiric Vancomycin and ancef. dc abx if ok with podiatry
Per tube cutter, depending on culture and path report, to decide if pt needs additional surgery or not. per orders plan for OR 07/22
NWB to RLE
PT/OT eval
# IDDM
c/w Lantus 28U HS, Aspart 15 units AC
Carb control diet
cover with ISS low
# Essential hypertension
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
DVT prophylaxis: lovenox SQ
Full code.
General: Well Developed, No Apparent Distress, Comfortable, Conversant and Obese
HEENT: Normocephalic, Atraumatic and Moist Mucous Membranes
Respiratory: Clear to Auscultation and Non Labored Respirations; Negative Accessory Resp Muscle Use
Cardiac: Regular Rhythm and S1/S2; Negative Murmur, Rub or Gallop
GI: Soft, Nontender, Nondistended and Normal Bowel Sounds
Musculoskeletal: Other (R ankle in external fixation)
Neuro: Awake and Alert
Psych: Calm and Intact Judgement/Insight
Anticipated Discharge: Within 24 hours
Subjective/Interval History
-
Date of Service: July 22, 2024
denies nausea
Objective Data
-
Labs:
Laboratory Results
07/22/24
06:16
WBC 11.1 H
Hgb 10.4 L
Hct 32.3 L
Plt Count 310
Sodium 140
Potassium 4.9
Chloride 99
Carbon Dioxide 33 H
BUN 22 H
Creatinine 0.9
Glucose 165 H
Calcium 9.6
Vital Signs:
Vital Signs
Temp Pulse Resp BP Pulse Ox
98.6 F 83 15 145/71 96
07/22/24 07:22 07/22/24 07:22 07/22/24 07:22 07/22/24 07:22 07/22/24 07:22
I&O
07/21/24 07/22/24 07/23/24
06:59 06:59 06:59
Intake Total 1260 / 1260 480 / 480
Balance 1260 / 1260 480 / 480
[2024-07-22 12:33] LABS: Glucose - Point of Care 190 mg/dl (70-99)
--- NOTE | 2024-07-22 14:37 | CM ---
Case management following for discharge planning
Chart reviewed
Pt to OR today for - frame removal and definitive operative care (intramedullary ankle nail)
Remains on IV antibiotics
Updates sent in [facility]
Plan - SNF when bed obtained and medically ready
[2024-07-22 16:08] LABS: Glucose - Point of Care 127 mg/dl (70-99)
--- NOTE | 2024-07-22 16:27 | W.PN.UPDATE ---
Update Note
Progress Note Update
s/p right ex fix removal and ankle fusion with Intramdullary nail
-Strict NWB RLE
-PT/OT
-Dressings C/D/I
-anticipate rehab
-Ancef x 3 doses
-Follow up 2 weeks
[2024-07-22 19:02] LABS: Glucose - Point of Care 156 mg/dl (70-99)
[2024-07-22] MEDS: DILAUDID 0.25 MG IV ×2 (19:15→19:34)
[2024-07-22] MEDS: LOVENOX 40 MG SC (20:17)
[2024-07-22 21:14] LABS: Glucose - Point of Care 247 mg/dl (70-99)
[2024-07-22] MEDS: LANTUS 0.28 UNITS SC (22:57)
[2024-07-22] MEDS: NEURONTIN 300 MG PO (23:02)
[2024-07-22] MEDS: LIPITOR 20 MG PO (23:02)
[2024-07-23] VITALS (7 sets, daily range): BP systolic 118–171; BP diastolic 57–95; PULSE 91–100; O2SAT 98
--- NOTE | 2024-07-23 02:30 | PTCARENOTE ---
Pt arrived at 1999 from PACU in bed. Pt AAOX3 but drowsy. VSS. pt on 2L NC at 99%. R ankle splinted and carolyn wrapped. Pt is NWB to RLE. Pt was able to be assisted w RW to BSC. Pt resting in bed. assessment on going
[2024-07-23] MEDS: ROXICODONE 5 MG PO ×3 (03:02→19:53)
[2024-07-23] MEDS: ANCEF 5 IV ×3 (03:37→18:26)
[2024-07-23] MEDS: VANCOCIN 200 IV (05:43)
[2024-07-23 07:07] LABS: % Basophils 0.1 % (0-2); % Immature Granulocytes 0.7 % (0-0.5); % Lymphocytes 8.5 % (20.5-51.1); % Monocytes 5.4 % (1.7-9.3); % Neutrophils 85.3 % (42.2-75.2); Absolute Immature Granulocytes 0.1 10^3/uL (0-0.05); Absolute Lymphocytes 1.3 10^3/uL (1.2-3.4); Absolute Monocytes 0.8 10^3/uL (0.1-0.6); Absolute Neutrophils 12.9 10^3/uL (1.4-6.5); Hematocrit 31.1 % (37.0-47.0); Hemoglobin 10.3 g/dL (12.0-16.0); Mean Corp Hgb Conc. 33.1 g/dL (33.0-37.0); Mean Corpuscular Hgb 27.7 pg (27.0-31.0); Mean Corpuscular Volume 83.6 fL (81.0-99.0); Mean Platelet Volume 9.7 fL (7.4-10.4); Nucleated Red Blood Cells % 0 %; Platelet Count 305 10^3/uL (130-400); Red Blood Cell Count 3.72 10^6/uL (4.20-5.40); White Blood Cell Count 15.1 10^3/uL (4.8-10.8)
[2024-07-23 07:37] LABS: Blood Urea Nitrogen 22 mg/dl (7-17); Calcium 8.8 mg/dl (8.4-10.2); Carbon Dioxide 28 mmol/L (22-30); Chloride 97 mmol/L (98-107); Estimated Creatinine Clearance 89 ml/min; Glucose 271 mg/dl (70-99); Potassium 4.9 mmol/L (3.5-5.1); Sodium 137 mmol/L (135-145); eGFR > 60.00
[2024-07-23 08:38] LABS: Glucose - Point of Care 266 mg/dl (70-99)
[2024-07-23] MEDS: NOVOLOG FLEXPEN-LOW RESISTANCE 3 UNITS SC (08:45)
[2024-07-23] MEDS: NOVOLOG FLEXPEN 15 UNITS SC ×3 (08:45→18:24)
[2024-07-23] MEDS: TRANDATE 100 MG PO ×2 (08:48→19:52)
[2024-07-23] MEDS: CYMBALTA DELAYED RELEASE 60 MG PO (08:49)
[2024-07-23] MEDS: THERAGRAN 1 TABLET PO (08:49)
[2024-07-23] MEDS: OSCAL 500 + D 500 MG PO (08:49)
[2024-07-23] MEDS: NORVASC 5 MG PO ×2 (08:49→19:53)
[2024-07-23] MEDS: PROTONIX 40 MG PO (08:49)
[2024-07-23] MEDS: VITAMIN D3 (cholecalciferol) 50 MCG PO (08:49)
[2024-07-23] MEDS: ZESTRIL 20 MG PO ×2 (08:49→19:53)
[2024-07-23] MEDS: MIRALAX 17 GRAMS PO (08:50)
[2024-07-23] MEDS: FLUSH (NSS) 2 FLUSH IV (09:59)
--- NOTE | 2024-07-23 10:01 | PHA.VAN.FU ---
Vancomycin Assessment / Plan
- Assessment
Renal Function: Stable
WBC's are: Trending Up
In the past 24 hrs, patient has been: Afebrile
Concomitant Antimicrobials: cefazolin
- Dosing Plan
Continue: Vanc 1000mg Q12H
- Monitoring Plan
Level(s) appropriate: Recheck trough at minimum of weekly intervals, Repeat sooner for changes in renal function or clinical status
Next Level Due (Date): ~07/29
- Follow Up
Pharmacy will continue to follow.
Vancomycin Follow UP
- -
Patient Age: 63
Patient Sex: Female
Vancomycin Day #: 8
Indication: Skin And Soft Tissue
Requesting Provider: Dr. Meza
Pertinent Antimicrobial Allergies:
no pertinent antibiotic allergies
Height / Weight:
Height 5 ft 2 in
Actual Weight 95.708 kg
Pertinent Past Medical History: BMI ~38.5; s/p RLE hardware removal, ankle reduction
- Vital Signs / Lab Results
Temp Pulse Resp BP Pulse Ox
98.3 F 90 16 140/95 97
07/23/24 07:41 07/23/24 08:49 07/23/24 07:41 07/23/24 08:49 07/23/24 07:41
Lab Results - Hematology
07/21/24 07/22/24 07/23/24
04:39 06:16 06:25
WBC 10.9 H 11.1 H 15.1 H
Lab Results - Chemistry
07/21/24 07/22/24 07/23/24
04:39 06:16 06:25
BUN 23 H 22 H 22 H
Creatinine 0.9 0.9 0.7
Estimated Creat Clear 69 69 89
Microbiology Results
07/15/24 19:00 Wound Culture - Final
Ankle - Right No growth
Gram Stain - Final
07/15/24 19:00 Anaerobic Culture - Final
Ankle - Right NO ANAEROBES ISOLATED
Therapeutic Drug Monitoring
Vancomycin Peak 22.3 ug/ml (18-26) 07/21/24 21:46
Vancomycin Trough 13.5 ug/ml (5-20) 07/22/24 06:16
--- NOTE | 2024-07-23 10:49 | CM ---
Met with patient at bedside.
S/P 07/22 OR - ext fix removal & ankle fusion w/intramdullary nail
Referrals in [facility]. Only accepting facility at present is [facility]. Patient aware/agreeable
Await PT/OT eval post-op today
PLAN: Await PT/OT evals post-op - referrals [facility] SNF [facility].
--- NOTE | 2024-07-23 11:39 | W.PN.HOSP.TC ---
Today's Communication/Plan
-
Monitor vital signs see plan
Discontinue vancomycin, continue with cefazolin
Pain control
PT/OT
Discharge planning
Assessment / Plan
Assessment / Plan
HPI: 63-year-old female with PMH T2DM, Anxiety /depression s/p complicated Right ankle fracture underwent ORIF in January 2024 (Dr Marques), p/w R ankle pain. 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 Patient stated she has been unable
to bear weight on right ankle since.
A/P:
# R ankle pain 2/2 Fractured metallic plate of the medial distal right tibia
# Increased displacement of the posterior and medial malleolar fractures
s/p OR RLE hardware removal, ankle reduction, external fixator application 07/[address] Marques.
Follow up culture, so far no growth
Follow up pathology from OR neg for osteo
OR 07/22; s/p right ex fix removal and ankle fusion with Intramdullary nail
-Strict NWB RLE
Patient will follow-up with podiatry outpatient. Per my conversation with podiatry, they want p.o. antibiotics for at least 2 weeks postop. Will currently do cefazolin for now. DC Vanco
PT/OT eval
Monitor leukocytosis
# IDDM
c/w Lantus 28U HS, Aspart 15 units AC
Carb control diet
cover with ISS low
# Essential hypertension
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
DVT prophylaxis: lovenox SQ
Full code
General: Well Developed, No Apparent Distress, Comfortable, Conversant and Obese
HEENT: Normocephalic, Atraumatic and Moist Mucous Membranes
Respiratory: Clear to Auscultation and Non Labored Respirations; Negative Accessory Resp Muscle Use
Cardiac: Regular Rhythm and S1/S2; Negative Murmur, Rub or Gallop
GI: Soft, Nontender, Nondistended and Normal Bowel Sounds
Musculoskeletal: Other (R ankle in external fixation)
Neuro: Awake and Alert
Psych: Calm and Intact Judgement/Insight
Anticipated Discharge: Within 24 hours
Subjective/Interval History
-
Date of Service: July 23, 2024
has some pain
Objective Data
-
Labs:
Laboratory Results
07/23/24
06:25
WBC 15.1 H
Hgb 10.3 L
Hct 31.1 L
Plt Count 305
Sodium 137
Potassium 4.9
Chloride 97 L
Carbon Dioxide 28
BUN 22 H
Creatinine 0.7
Glucose 271 H
Calcium 8.8
Vital Signs:
Vital Signs
Temp Pulse Resp BP Pulse Ox
98.3 F 90 16 140/95 97
07/23/24 07:41 07/23/24 08:49 07/23/24 07:41 07/23/24 08:49 07/23/24 07:41
I&O
07/22/24 07/23/24 07/24/24
06:59 06:59 06:59
Intake Total 480 / 480 840 / 840
Balance 480 / 480 840 / 840
[2024-07-23 13:18] LABS: Glucose - Point of Care 198 mg/dl (70-99)
[2024-07-23] MEDS: NOVOLOG FLEXPEN-LOW RESISTANCE 1 UNITS SC (13:33)
[2024-07-23] MEDS: VISBIOME 1 CAP PO (13:36)
[2024-07-23 16:04] LABS: Glucose - Point of Care 173 mg/dl (70-99)
--- NOTE | 2024-07-23 16:19 | W.PN.SURGUPD ---
Surgical Update
Surgical Update
s/p right ex fix removal and ankle fusion with Intramdullary nail on 07/[address] Marques
-No further surgical plans
-Strict NWB RLE
-PT/OT
-Dressings to remain C/D/I. No dressing changes required.
-Antibiotics for 2 weeks post op
-Follow up at [facility] 2 weeks following discharge
[2024-07-23 18:22] LABS: Glucose - Point of Care 210 mg/dl (70-99)
[2024-07-23] MEDS: NOVOLOG FLEXPEN-LOW RESISTANCE 2 UNITS SC (18:25)
[2024-07-23] MEDS: LOVENOX 40 MG SC (18:26)
[2024-07-23 21:31] LABS: Glucose - Point of Care 180 mg/dl (70-99)
[2024-07-23] MEDS: NEURONTIN 300 MG PO (22:06)
[2024-07-23] MEDS: LIPITOR 20 MG PO (22:06)
[2024-07-23] MEDS: LANTUS 0.28 UNITS SC (22:06)
[2024-07-24] MEDS: ROXICODONE 5 MG PO ×4 (00:21→20:25)
[2024-07-24 06:33] LABS: % Basophils 0.2 % (0-2); % Eosinophils 0.1 % (0-6); % Immature Granulocytes 0.4 % (0-0.5); % Lymphocytes 24.5 % (20.5-51.1); % Monocytes 10.5 % (1.7-9.3); % Neutrophils 64.3 % (42.2-75.2); Absolute Immature Granulocytes 0.1 10^3/uL (0-0.05); Absolute Lymphocytes 3.4 10^3/uL (1.2-3.4); Absolute Monocytes 1.4 10^3/uL (0.1-0.6); Absolute Neutrophils 8.8 10^3/uL (1.4-6.5); Hematocrit 29.6 % (37.0-47.0); Hemoglobin 9.6 g/dL (12.0-16.0); Mean Corp Hgb Conc. 32.4 g/dL (33.0-37.0); Mean Corpuscular Hgb 26.7 pg (27.0-31.0); Mean Corpuscular Volume 82.5 fL (81.0-99.0); Mean Platelet Volume 9.5 fL (7.4-10.4); Nucleated Red Blood Cells % 0 %; Platelet Count 348 10^3/uL (130-400); Red Blood Cell Count 3.59 10^6/uL (4.20-5.40); Red Cell Dist. Width 15.4 % (11.5-14.5); White Blood Cell Count 13.7 10^3/uL (4.8-10.8)
[2024-07-24 06:57] LABS: Blood Urea Nitrogen 23 mg/dl (7-17); Calcium 9.3 mg/dl (8.4-10.2); Carbon Dioxide 32 mmol/L (22-30); Chloride 100 mmol/L (98-107); Estimated Creatinine Clearance 78 ml/min; Glucose 145 mg/dl (70-99); Potassium 4.5 mmol/L (3.5-5.1); Sodium 141 mmol/L (135-145); eGFR > 60.00
[2024-07-24 07:42] VITALS: BP 122/65
[2024-07-24 07:43] LABS: Glucose - Point of Care 135 mg/dl (70-99)
[2024-07-24] MEDS: NOVOLOG FLEXPEN SC (08:07)
[2024-07-24] MEDS: NOVOLOG FLEXPEN-LOW RESISTANCE SC ×2 (08:08→17:44)
[2024-07-24] MEDS: ZESTRIL 20 MG PO ×2 (08:53→20:30)
[2024-07-24] MEDS: PROTONIX 40 MG PO (08:53)
[2024-07-24] MEDS: VISBIOME 1 CAP PO (08:53)
[2024-07-24] MEDS: TRANDATE 100 MG PO ×2 (08:53→20:31)
[2024-07-24] MEDS: OSCAL 500 + D 500 MG PO (08:53)
[2024-07-24] MEDS: THERAGRAN 1 TABLET PO (08:54)
[2024-07-24] MEDS: CYMBALTA DELAYED RELEASE 60 MG PO (08:54)
[2024-07-24] MEDS: NORVASC 5 MG PO ×2 (08:54→20:31)
[2024-07-24] MEDS: VITAMIN D3 (cholecalciferol) 50 MCG PO (08:54)
[2024-07-24] MEDS: NOVOLOG FLEXPEN 15 UNITS SC ×3 (08:54→18:13)
[2024-07-24] MEDS: MIRALAX 17 GRAMS PO (08:54)
--- NOTE | 2024-07-24 10:45 | W.PN.HOSP.TC ---
Today's Communication/Plan
-
monitor vitals
see plan
pain control
PT/OT
DC planning; CM aware
Assessment / Plan
Assessment / Plan
HPI: 63-year-old female with PMH T2DM, Anxiety /depression s/p complicated Right ankle fracture underwent ORIF in January 2024 (Dr Marques), p/w R ankle pain. 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 Patient stated she has been unable
to bear weight on right ankle since.
A/P:
# R ankle pain 2/2 Fractured metallic plate of the medial distal right tibia
# Increased displacement of the posterior and medial malleolar fractures
s/p OR RLE hardware removal, ankle reduction, external fixator application 07/[address] Marques.
Follow up culture, so far no growth
Follow up pathology from OR neg for osteo
OR 07/22; s/p right ex fix removal and ankle fusion with Intramdullary nail
-Strict NWB RLE
Patient will follow-up with podiatry outpatient. Per my conversation with podiatry, they want p.o. antibiotics for at least 2 weeks postop. Will currently do cefazolin for now. DC Vanco
PT/OT eval
Monitor leukocytosis, improving. no fever
# IDDM
c/w Lantus 28U HS, Aspart 15 units AC
Carb control diet
cover with ISS low
# Essential hypertension
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
DVT prophylaxis: lovenox SQ
Full code
General: Well Developed, No Apparent Distress, Comfortable, Conversant and Obese
HEENT: Normocephalic, Atraumatic and Moist Mucous Membranes
Respiratory: Clear to Auscultation and Non Labored Respirations; Negative Accessory Resp Muscle Use
Cardiac: Regular Rhythm and S1/S2; Negative Murmur, Rub or Gallop
GI: Soft, Nontender, Nondistended and Normal Bowel Sounds
Musculoskeletal: Other (R ankle in external fixation)
Neuro: Awake and Alert
Psych: Calm and Intact Judgement/Insight
Anticipated Discharge: Today
Subjective/Interval History
-
Date of Service: July 24, 2024
has some pain
Objective Data
-
Labs:
Laboratory Results
07/24/24
05:23
WBC 13.7 H
Hgb 9.6 L
Hct 29.6 L
Plt Count 348
Sodium 141
Potassium 4.5
Chloride 100
Carbon Dioxide 32 H
BUN 23 H
Creatinine 0.8
Glucose 145 H
Calcium 9.3
Vital Signs:
Vital Signs
Temp Pulse Resp BP Pulse Ox
98.6 F 89 16 122/65 94
07/24/24 07:42 07/24/24 08:54 07/24/24 07:42 07/24/24 08:54 07/24/24 07:42
I&O
07/23/24 07/24/24 07/25/24
06:59 06:59 06:59
Intake Total 840 / 840 920 / 920
Balance 840 / 840 920 / 920
[2024-07-24 11:11] VITALS: BP 114/65; PULSE 88; O2SAT 97
--- NOTE | 2024-07-24 11:30 | CM ---
Pt medically ready for discharge
Spoke with Marci at [facility] - can accept today
Spoke with pt - agrees with facility
Called [facility] [phone], spoke with business development representative
Instructed to Fax clinical information to [phone] - sent to fax #
Plan - Transfer to [facility] when auth obtained
[2024-07-24 13:08] LABS: Glucose - Point of Care 199 mg/dl (70-99)
[2024-07-24] MEDS: NOVOLOG FLEXPEN-LOW RESISTANCE 1 UNITS SC (13:15)
[2024-07-24 15:30] VITALS: BP 130/59
[2024-07-24 17:15] LABS: Glucose - Point of Care 128 mg/dl (70-99)
[2024-07-24] MEDS: LOVENOX 40 MG SC (18:12)
[2024-07-24] MEDS: TYLENOL 650 MG PO (20:28)
[2024-07-24] MEDS: NEURONTIN 300 MG PO (22:15)
[2024-07-24] MEDS: LIPITOR 20 MG PO (22:15)
[2024-07-24] MEDS: LANTUS 0.28 UNITS SC (22:18)
[2024-07-24 22:20] LABS: Glucose - Point of Care 159 mg/dl (70-99)
[2024-07-24] MEDS: ROXICODONE 10 MG PO (23:45)
[2024-07-24 23:47] VITALS: BP 134/65
[2024-07-25 07:30] VITALS: BP 103/63
[2024-07-25 08:27] LABS: Glucose - Point of Care 130 mg/dl (70-99)
[2024-07-25 09:10] LABS: % Basophils 0.6 % (0-2); % Eosinophils 1.2 % (0-6); % Immature Granulocytes 0.4 % (0-0.5); % Lymphocytes 34.9 % (20.5-51.1); % Monocytes 11.3 % (1.7-9.3); % Neutrophils 51.6 % (42.2-75.2); Absolute Basophils 0.1 10^3/uL (0-0.2); Absolute Eosinophils 0.1 10^3/uL (0-0.7); Absolute Lymphocytes 3.3 10^3/uL (1.2-3.4); Absolute Monocytes 1.1 10^3/uL (0.1-0.6); Absolute Neutrophils 4.9 10^3/uL (1.4-6.5); Hematocrit 31.1 % (37.0-47.0); Mean Corp Hgb Conc. 32.2 g/dL (33.0-37.0); Mean Corpuscular Hgb 27.5 pg (27.0-31.0); Mean Corpuscular Volume 85.4 fL (81.0-99.0); Mean Platelet Volume 9.6 fL (7.4-10.4); Nucleated Red Blood Cells % 0 %; Platelet Count 325 10^3/uL (130-400); Red Blood Cell Count 3.64 10^6/uL (4.20-5.40); Red Cell Dist. Width 15.4 % (11.5-14.5); White Blood Cell Count 9.4 10^3/uL (4.8-10.8)
[2024-07-25] MEDS: NOVOLOG FLEXPEN-LOW RESISTANCE SC (09:11)
[2024-07-25] MEDS: MIRALAX 17 GRAMS PO (09:12)
[2024-07-25] MEDS: VITAMIN D3 (cholecalciferol) 50 MCG PO (09:13)
[2024-07-25] MEDS: THERAGRAN 1 TABLET PO (09:13)
[2024-07-25] MEDS: OSCAL 500 + D 500 MG PO (09:14)
[2024-07-25] MEDS: NOVOLOG FLEXPEN 15 UNITS SC ×3 (09:14→17:36)
[2024-07-25] MEDS: VISBIOME 1 CAP PO (09:14)
[2024-07-25] MEDS: TRANDATE PO (09:14)
[2024-07-25] MEDS: NORVASC 5 MG PO ×2 (09:14→20:00)
[2024-07-25] MEDS: ZESTRIL PO (09:15)
[2024-07-25] MEDS: CYMBALTA DELAYED RELEASE 60 MG PO (09:15)
[2024-07-25] MEDS: PROTONIX 40 MG PO (09:15)
[2024-07-25] MEDS: SENOKOT-S 1 TABLET PO (09:18)
[2024-07-25] MEDS: TYLENOL 650 MG PO (09:18)
[2024-07-25 09:47] LABS: Blood Urea Nitrogen 21 mg/dl (7-17); Calcium 9.2 mg/dl (8.4-10.2); Carbon Dioxide 32 mmol/L (22-30); Chloride 98 mmol/L (98-107); Estimated Creatinine Clearance 77 ml/min; Glucose 124 mg/dl (70-99); Potassium 4.2 mmol/L (3.5-5.1); Sodium 139 mmol/L (135-145); eGFR > 60.00
--- NOTE | 2024-07-25 10:00 | PTCARENOTE ---
Patient refusing to get OOB at present. Patient states, 'I took a pain pill last night and I still feel like my head is spinning.' Patient agreed to get OOB to chair after a nap. Patient has no c/o pain at present. RLE elevated on pillow, ice
applied.
--- NOTE | 2024-07-25 11:32 | W.PN.HOSP.TC ---
Today's Communication/Plan
-
Monitor vital signs
see plan
Pain control
Pending placement, case therapist aware
Assessment / Plan
Assessment / Plan
HPI: 63-year-old female with PMH T2DM, Anxiety /depression s/p complicated Right ankle fracture underwent ORIF in January 2024 (Dr Marques), p/w R ankle pain. 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 Patient stated she has been unable
to bear weight on right ankle since.
A/P:
# R ankle pain 2/2 Fractured metallic plate of the medial distal right tibia
# Increased displacement of the posterior and medial malleolar fractures
s/p OR RLE hardware removal, ankle reduction, external fixator application 07/[address] Marques.
Follow up culture, so far no growth
Follow up pathology from OR neg for osteo
OR 07/22; s/p right ex fix removal and ankle fusion with Intramdullary nail
-Strict NWB RLE
Patient will follow-up with podiatry outpatient. Per my conversation with podiatry, they want p.o. antibiotics for at least 2 weeks postop. Will currently do cefazolin for now. DC Vanco
PT/OT eval
Monitor leukocytosis, improving. no fever
# IDDM
c/w Lantus 28U HS, Aspart 15 units AC
Carb control diet
cover with ISS low
# Essential hypertension
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
DVT prophylaxis: lovenox SQ
Full code
General: Well Developed, No Apparent Distress, Comfortable, Conversant and Obese
HEENT: Normocephalic, Atraumatic and Moist Mucous Membranes
Respiratory: Clear to Auscultation and Non Labored Respirations
Cardiac: Regular Rhythm and S1/S2; Negative Murmur, Rub or Gallop
GI: Soft, Nontender, Nondistended and Normal Bowel Sounds
Neuro: Awake and Alert
Psych: Calm and Intact Judgement/Insight
Anticipated Discharge: Within 24 hours
Subjective/Interval History
-
Date of Service: July 25, 2024
denies pain
Objective Data
-
Labs:
Laboratory Results
07/25/24
08:18
WBC 9.4
Hgb 10.0 L
Hct 31.1 L
Plt Count 325
Sodium 139
Potassium 4.2
Chloride 98
Carbon Dioxide 32 H
BUN 21 H
Creatinine 0.8
Glucose 124 H
Calcium 9.2
Vital Signs:
Vital Signs
Temp Pulse Resp BP Pulse Ox
98.3 F 87 16 103/63 98
07/25/24 07:30 07/25/24 07:30 07/25/24 07:30 07/25/24 07:30 07/25/24 07:30
I&O
07/24/24 07/25/24 07/26/24
06:59 06:59 06:59
Intake Total 920 / 920 660 / 660
Balance 920 / 920 660 / 660
[2024-07-25 11:49] LABS: Glucose - Point of Care 161 mg/dl (70-99)
[2024-07-25] MEDS: NOVOLOG FLEXPEN-LOW RESISTANCE 1 UNITS SC ×2 (12:45→17:36)
[2024-07-25 15:25] VITALS: BP 123/73
[2024-07-25 16:59] LABS: Glucose - Point of Care 187 mg/dl (70-99)
[2024-07-25] MEDS: LOVENOX 40 MG SC (17:37)
[2024-07-25] MEDS: ZESTRIL 20 MG PO (20:00)
[2024-07-25] MEDS: TRANDATE 100 MG PO (20:00)
[2024-07-25] MEDS: NEURONTIN 300 MG PO (21:27)
[2024-07-25] MEDS: LIPITOR 20 MG PO (21:27)
[2024-07-25 21:31] LABS: Glucose - Point of Care 171 mg/dl (70-99)
[2024-07-25] MEDS: LANTUS 0.28 UNITS SC (21:34)
[2024-07-25] MEDS: ROXICODONE 5 MG PO (21:34)
[2024-07-25 23:26] VITALS: BP 125/54
[2024-07-26] MEDS: ROXICODONE 5 MG PO ×4 (01:35→22:20)
[2024-07-26 04:53] LABS: % Basophils 0.6 % (0-2); % Immature Granulocytes 0.4 % (0-0.5); % Monocytes 9.3 % (1.7-9.3); % Neutrophils 61.7 % (42.2-75.2); Absolute Basophils 0.1 10^3/uL (0-0.2); Absolute Eosinophils 0.1 10^3/uL (0-0.7); Absolute Lymphocytes 2.8 10^3/uL (1.2-3.4); Absolute Neutrophils 6.4 10^3/uL (1.4-6.5); Hematocrit 28.6 % (37.0-47.0); Hemoglobin 9.5 g/dL (12.0-16.0); Mean Corp Hgb Conc. 33.2 g/dL (33.0-37.0); Mean Corpuscular Hgb 27.8 pg (27.0-31.0); Mean Corpuscular Volume 83.6 fL (81.0-99.0); Mean Platelet Volume 9.4 fL (7.4-10.4); Nucleated Red Blood Cells % 0 %; Platelet Count 318 10^3/uL (130-400); Red Blood Cell Count 3.42 10^6/uL (4.20-5.40); Red Cell Dist. Width 15.2 % (11.5-14.5); White Blood Cell Count 10.4 10^3/uL (4.8-10.8)
[2024-07-26 05:13] LABS: Blood Urea Nitrogen 21 mg/dl (7-17); Calcium 9.2 mg/dl (8.4-10.2); Carbon Dioxide 30 mmol/L (22-30); Chloride 100 mmol/L (98-107); Estimated Creatinine Clearance 88 ml/min; Glucose 189 mg/dl (70-99); Potassium 4.3 mmol/L (3.5-5.1); Sodium 139 mmol/L (135-145); eGFR > 60.00
[2024-07-26 07:29] LABS: Glucose - Point of Care 142 mg/dl (70-99)
[2024-07-26 07:50] VITALS: BP 128/75
[2024-07-26] MEDS: NOVOLOG FLEXPEN 15 UNITS SC ×3 (08:48→18:10)
[2024-07-26] MEDS: NOVOLOG FLEXPEN-LOW RESISTANCE SC ×2 (08:49→16:58)
[2024-07-26] MEDS: THERAGRAN 1 TABLET PO (08:54)
[2024-07-26] MEDS: PROTONIX 40 MG PO (09:10)
[2024-07-26] MEDS: CYMBALTA DELAYED RELEASE 60 MG PO (09:11)
[2024-07-26] MEDS: VISBIOME 1 CAP PO (09:11)
[2024-07-26] MEDS: OSCAL 500 + D 500 MG PO (09:11)
[2024-07-26] MEDS: ZESTRIL 20 MG PO ×2 (09:12→20:27)
[2024-07-26] MEDS: TRANDATE 100 MG PO ×2 (09:12→20:27)
[2024-07-26] MEDS: NORVASC 5 MG PO ×2 (09:12→20:28)
[2024-07-26] MEDS: VITAMIN D3 (cholecalciferol) 50 MCG PO (09:12)
[2024-07-26] MEDS: MIRALAX 17 GRAMS PO (09:13)
[2024-07-26] MEDS: AUGMENTIN 875 MG/125 MG 1 TABLET PO ×2 (09:28→20:27)
--- NOTE | 2024-07-26 10:52 | W.PN.HOSP.TC ---
Today's Communication/Plan
-
Monitor vital signs
see below
awaiting placement, caseworker protective services aware
Pain control
P.o. antibiotics
Assessment / Plan
Assessment / Plan
HPI: 63-year-old female with PMH T2DM, Anxiety /depression s/p complicated Right ankle fracture underwent ORIF in January 2024 (Dr Marques), p/w R ankle pain. 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 Patient stated she has been unable
to bear weight on right ankle since.
A/P:
# R ankle pain 2/2 Fractured metallic plate of the medial distal right tibia
# Increased displacement of the posterior and medial malleolar fractures
s/p OR RLE hardware removal, ankle reduction, external fixator application 07/[address] Marques.
Follow up culture, so far no growth
Follow up pathology from OR neg for osteo
OR 07/22; s/p right ex fix removal and ankle fusion with Intramdullary nail
-Strict NWB RLE
Patient will follow-up with podiatry outpatient. Per my conversation with podiatry, they want p.o. antibiotics for at least 2 weeks postop. added augmentin to complete course
PT/OT eval rec SNF; awaiting placement
Monitor leukocytosis, improving. no fever
# IDDM
c/w Lantus 28U HS, Aspart 15 units AC
Carb control diet
cover with ISS low
# Essential hypertension
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
DVT prophylaxis: lovenox SQ
Full code
General: Well Developed, No Apparent Distress, Comfortable, Conversant and Obese
HEENT: Normocephalic, Atraumatic and Moist Mucous Membranes
Respiratory: Clear to Auscultation and Non Labored Respirations
Cardiac: Regular Rhythm and S1/S2; Negative Murmur, Rub or Gallop
GI: Soft, Nontender, Nondistended and Normal Bowel Sounds
Neuro: Awake and Alert
Psych: Calm and Intact Judgement/Insight
Anticipated Discharge: Within 24 hours
Subjective/Interval History
-
Date of Service: July 26, 2024
denies pain
Objective Data
-
Labs:
Laboratory Results
07/26/24
04:33
WBC 10.4
Hgb 9.5 L
Hct 28.6 L
Plt Count 318
Sodium 139
Potassium 4.3
Chloride 100
Carbon Dioxide 30
BUN 21 H
Creatinine 0.7
Glucose 189 H
Calcium 9.2
Vital Signs:
Vital Signs
Temp Pulse Resp BP Pulse Ox
98.3 F 99 18 128/75 97
07/26/24 07:50 07/26/24 07:50 07/26/24 07:50 07/26/24 07:50 07/26/24 07:50
I&O
07/25/24 07/26/24 07/27/24
06:59 06:59 06:59
Intake Total 660 / 660 1340 / 1340
Balance 660 / 660 1340 / 1340
[2024-07-26 11:46] LABS: Glucose - Point of Care 176 mg/dl (70-99)
[2024-07-26] MEDS: NOVOLOG FLEXPEN-LOW RESISTANCE 1 UNITS SC (13:00)
[2024-07-26 15:05] VITALS: BP 112/68
[2024-07-26 16:47] LABS: Glucose - Point of Care 135 mg/dl (70-99)
[2024-07-26] MEDS: LOVENOX 40 MG SC (16:59)
[2024-07-26] MEDS: LIPITOR 20 MG PO (20:28)
[2024-07-26 22:03] LABS: Glucose - Point of Care 233 mg/dl (70-99)
[2024-07-26] MEDS: NEURONTIN 300 MG PO (22:20)
[2024-07-26] MEDS: LANTUS 0.28 UNITS SC (22:21)
[2024-07-26 23:30] VITALS: BP 108/51
[2024-07-27 07:08] LABS: % Basophils 0.6 % (0-2); % Eosinophils 1.4 % (0-6); % Immature Granulocytes 0.3 % (0-0.5); % Monocytes 8.5 % (1.7-9.3); % Neutrophils 63.2 % (42.2-75.2); Absolute Basophils 0.1 10^3/uL (0-0.2); Absolute Eosinophils 0.1 10^3/uL (0-0.7); Absolute Lymphocytes 2.6 10^3/uL (1.2-3.4); Absolute Monocytes 0.9 10^3/uL (0.1-0.6); Absolute Neutrophils 6.4 10^3/uL (1.4-6.5); Hematocrit 30.7 % (37.0-47.0); Hemoglobin 10.1 g/dL (12.0-16.0); Mean Corp Hgb Conc. 32.9 g/dL (33.0-37.0); Mean Corpuscular Hgb 27.8 pg (27.0-31.0); Mean Corpuscular Volume 84.6 fL (81.0-99.0); Mean Platelet Volume 9.8 fL (7.4-10.4); Nucleated Red Blood Cells % 0 %; Platelet Count 339 10^3/uL (130-400); Red Blood Cell Count 3.63 10^6/uL (4.20-5.40); Red Cell Dist. Width 15.1 % (11.5-14.5); White Blood Cell Count 10.1 10^3/uL (4.8-10.8)
[2024-07-27 07:50] VITALS: BP 124/52
[2024-07-27 07:57] LABS: Glucose - Point of Care 162 mg/dl (70-99)
[2024-07-27 08:00] LABS: Blood Urea Nitrogen 17 mg/dl (7-17); Calcium 9.3 mg/dl (8.4-10.2); Carbon Dioxide 30 mmol/L (22-30); Chloride 98 mmol/L (98-107); Estimated Creatinine Clearance 68 ml/min; Glucose 154 mg/dl (70-99); Potassium 4.3 mmol/L (3.5-5.1); Sodium 142 mmol/L (135-145); eGFR > 60.00
[2024-07-27] MEDS: NOVOLOG FLEXPEN-LOW RESISTANCE 1 UNITS SC ×2 (08:05→13:58)
[2024-07-27] MEDS: NOVOLOG FLEXPEN 15 UNITS SC ×2 (08:05→13:59)
[2024-07-27] MEDS: TRANDATE 100 MG PO (08:07)
[2024-07-27] MEDS: OSCAL 500 + D 500 MG PO (08:07)
[2024-07-27] MEDS: CYMBALTA DELAYED RELEASE 60 MG PO (08:07)
[2024-07-27] MEDS: PROTONIX 40 MG PO (08:07)
[2024-07-27] MEDS: VITAMIN D3 (cholecalciferol) 50 MCG PO (08:07)
[2024-07-27] MEDS: AUGMENTIN 875 MG/125 MG 1 TABLET PO (08:07)
[2024-07-27] MEDS: VISBIOME 1 CAP PO (08:07)
[2024-07-27] MEDS: THERAGRAN 1 TABLET PO (08:07)
[2024-07-27] MEDS: MIRALAX 17 GRAMS PO (08:08)
[2024-07-27] MEDS: ZESTRIL 20 MG PO (08:08)
[2024-07-27] MEDS: NORVASC 5 MG PO (08:08)
[2024-07-27] MEDS: ROXICODONE 5 MG PO ×2 (08:11→14:42)
--- NOTE | 2024-07-27 08:30 | CM ---
Addendum entered by Inga Dunn 07/27/24 10:11:
Patient states her sister will transport to [facility]
Original Note:
CM called insurance [employer] and spoke with Lazara for an update of faxed clinicals from 07/24
Authorization Approved for [facility] - Insurance Authorization # [id number]
Start 07/27/24 NRD 08/03/24
Fax updates to [phone]
tt Marci from [facility] - will let CM know if bed avail today
[facility]
Report #: [phone]
Fax #: [phone]
--- NOTE | 2024-07-27 11:13 | W.PN.SURGUPD ---
Surgical Update
Surgical Update
s/p right ex fix removal and ankle fusion with Intramdullary nail on 07/[address] Marques
-No further surgical plans
-Strict NWB RLE
-PT/OT
-Dressings changed and incisions inspected. Currently well healing. Re-applied betadine, DSD, well padded posterior splint
-No dressing changes required prior to follow up
-Antibiotics for 2 weeks post op
-Follow up at [facility] 2 weeks following discharge
--- NOTE | 2024-07-27 12:16 | W.PN.HOSP.TC ---
Addendum entered and electronically signed by Екатерина Meza MD 07/29/24 17:06:
# Acute blood loss anemia
Addendum entered and electronically signed by Екатерина Meza MD 07/27/24 14:04:
total DC time 37 min
Original Note:
Today's Communication/Plan
-
see A/P
Assessment / Plan
Assessment / Plan
HPI: 63-year-old female with PMH T2DM, Anxiety /depression s/p complicated Right ankle fracture underwent ORIF in January 2024 (Dr Marques), p/w R ankle pain. 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 Patient stated she has been unable
to bear weight on right ankle since.
A/P:
# R ankle pain 2/2 Fractured metallic plate of the medial distal right tibia
# Increased displacement of the posterior and medial malleolar fractures
s/p OR RLE hardware removal, ankle reduction, external fixator application 07/[address] Marques.
Wound culture no growth
Pathology from OR neg for osteo
OR 07/22; s/p right ankle ex fix removal and ankle fusion with Intramdullary nail
Strict NWB RLE
Patient to follow-up with podiatry outpatient. Per my conversation with podiatry, they want p.o. antibiotics for at least 2 weeks postop. Added Augmentin to complete course
PT/OT eval rec SNF
# IDDM
c/w Lantus 28U HS, Aspart 15 units AC
Carb control diet
cover with ISS low
# Essential hypertension
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
DVT prophylaxis: lovenox SQ
Full code
Dispo: SNF
DW CM
Anticipated Discharge: Today
Subjective/Interval History
-
Date of Service: July 27, 2024
Objective Data
-
Labs:
Laboratory Results
07/27/24
05:11
WBC 10.1
Hgb 10.1 L
Hct 30.7 L
Plt Count 339
Sodium 142
Potassium 4.3
Chloride 98
Carbon Dioxide 30
BUN 17
Creatinine 0.9
Glucose 154 H
Calcium 9.3
Vital Signs:
Vital Signs
Temp Pulse Resp BP Pulse Ox
37.1 C 89 16 124/52 96
07/27/24 07:50 07/27/24 07:50 07/27/24 07:50 07/27/24 08:08 07/27/24 08:00
I&O
07/26/24 07/27/24 07/28/24
06:59 06:59 06:59
Intake Total 1340 / 1340 960 / 960
Balance 1340 / 1340 960 / 960
Review of Systems
-
All other systems: Reviewed and negative
Physical Exam
-
General: Well Developed, Well Nourished, No Apparent Distress, Comfortable, Conversant and Obese
HEENT: Normocephalic, Atraumatic and Moist Mucous Membranes
Respiratory: Clear to Auscultation and Non Labored Respirations; Negative Accessory Resp Muscle Use
Cardiac: Regular Rhythm and S1/S2; Negative Murmur, Rub or Gallop
GI: Soft, Nontender, Nondistended and Normal Bowel Sounds; Negative Organomegaly
Rectal: Deferred by Provider
Skin: Negative Rash
Neuro: Awake and Alert
Psych: Calm and Intact Judgement/Insight
Data Reviewed
-
Labs: Labs Reviewed by me
[2024-07-27 13:20] LABS: Glucose - Point of Care 183 mg/dl (70-99)
--- NOTE | 2024-07-27 13:28 | W.DCSUMMARY ---
Discharge Summary
Discharge Data
Date of Admission: 07/14/24
Date of Discharge: 07/27/24
-
Pending Results: No
Hospital Course
Principal Diagnosis:
Right ankle pain due to fractured metallic plate of the medial distal right tibia
Chronic Diagnoses:�
Insulin-dependent diabetes
Essential hypertension
Anxiety /depression
Consultations:�
Senior Consultant
Procedures:�
RLE hardware removal, ankle reduction, external fixator application on 07/[address] Marques.
Followed by right ankle external fixation removal and ankle fusion with Intramedullary nail on 07/22
Clinical course:�
This is a 63-year-old female with Past medical history as stated above, who presented with right ankle fracture.
Of note, she recently had a complicated right ankle fracture and was status post ORIF in January [address] Marques.
Problem 1:
Right ankle pain due to fractured metallic plate of the medial distal right tibia.
She underwent RLE hardware removal, ankle reduction, external fixator application on 07/[address] Marques, and this was followed by right ankle external fixation removal and ankle fusion with Intramedullary nail on 07/22.
Her bone pathology was negative for osteomyelitis.
She received IV antibiotics while in the hospital and was discharged with Augmentin to continue a total of 2 weeks course.
Per podiatry, she should not weight-bear on the right leg.
She was discharged to [facility] facility per PT OT recommendation.
As for the rest of her medical problems, they were stable during her hospital stay.
Discharge Plan
-
Patient Disposition: Alf/SNF
Discharge Diagnosis/Procedures: R ankle pain due to Fractured metallic plate of the medial distal right tibia;
status post R ankle fusion with Intramdullary nail this admission
Condition: Fair
Diet: As tolerated and Diabetic, Carb Controlled
Activity: Do not bear weight R leg
Driving Restrictions: No driving
Referrals:
Suzanne An CRNP [Primary Care Provider] - in less than 1 week
Additional Discharge Medication Instructions: Continue antibiotic Bactrim for 6 more days only.
Prescriptions:
New
polyethylene glycol 3350 [HealthyLax] 17 gram Powder In Packet
17 g PO DAILY Qty: 0 0RF
acetaminophen 325 mg Tablet
650 mg PO Q4HPRN PRN (Reason: mild pain/[place]/temp> 100.4F) Qty: 0 0RF
sennosides-docusate sodium 8.6-50 mg Tablet
1 tab PO DAILYPRN PRN (Reason: constipation) Qty: 0 0RF
oxycodone 5 mg Tablet
5 mg PO Q4HPRN PRN (Reason: moderate pain) Qty: 12 0RF
Lactobac/Bifidobac [Visbiome]
1 cap PO DAILY Qty: 1 0RF
amoxicillin-pot clavulanate 875-125 mg Tablet
1 tab PO Q12 6 Days Qty: 12 0RF
Continued
atorvastatin [Lipitor] 20 mg Tablet
20 mg PO HS
metformin 500 mg tablet extended release 24hr
500 mg PO BID@0800,1700
lisinopril 20 mg Tablet
20 mg PO BID Qty: 60 0RF
amlodipine 5 mg Tablet
5 mg PO BID Qty: 60 0RF
insulin aspart U-100 100 unit/mL (3 mL) Insulin Pen
15 unit SC AC Qty: 1 0RF
pantoprazole 40 mg Tablet,Delayed Release (Dr/Ec)
40 mg PO DAILY Qty: 30 0RF
labetalol 100 mg Tablet
100 mg PO BID Qty: 60 0RF
therapeutic multivitamin Tablet
1 tab PO DAILY
gabapentin 300 mg capsule
300 mg PO HS
duloxetine 60 mg capsule,delayed release(DR/EC)
60 mg PO DAILY
cholecalciferol (vitamin D3) 25 mcg (1,000 unit) Tablet
50 mcg PO DAILY
calcium carb,cit-mag cit,ox-D3 300 mg-150 mg- 400 unit Tablet
1 tab PO DAILY
insulin glargine-yfgn 100 unit/mL (3 mL) insulin pen
28 unit SC HS
ibuprofen 200 mg Tablet
400 mg PO Q6HPRN PRN (Reason: mild pain)
Discontinued
amoxicillin-pot clavulanate 875-125 mg tablet
1 tab PO Q12H
naproxen
1 tab PO Q6HPRN PRN (Reason: mild pain)
Discharge Orders:
Discharge Patient (As Directed); Ordered 07/27/24
Ordered By: Екатерина Meza
Discharge Date and Time
Print Language: ARMENIAN
[2024-07-27] MEDS: AFLURIA (36 mos+) 2024-2025 FORMULA 0.5 ML IM (14:00)
[2024-07-27 15:48] VITALS: BP 102/69
--- NOTE | 2024-07-29 15:18 | PN.CDI ---
CDI
- -
CDI:
Physician Documentation Request
Admit Date: 07/14/24 20:01
Dear Doctor Susana,
Please review the following and provide your response in the progress notes.
Clinical Indicators:
Discharge Summary, 07/27
#Principal Diagnosis:
#...Right ankle pain due to fractured metallic plate of the medial distal right tibia
#Procedures:�
#RLE hardware removal, ankle reduction, external fixator application
#...on 07/[address] Marques.
#Followed by right ankle external fixation removal and ankle fusion with Intramedullary nail
#...on 07/22
Laboratory Tests
07/14/24 07/15/24 07/16/24
20:41 05:12 05:02
Hgb 11.2 L 12.1 11.4 L
07/17/24 07/18/24 07/19/24
05:02 05:11 04:58
Hgb 11.5 L 10.4 L 10.3 L
07/20/24 07/21/24 07/22/24
04:32 04:39 06:16
Hgb 10.6 L 9.5 L 10.4 L
07/23/24 07/24/24 07/25/24
06:25 05:23 08:18
Hgb 10.3 L 9.6 L 10.0 L
07/26/24 07/27/24
04:33 05:11
Hgb 9.5 L 10.1 L
Based on the above and your clinical assessment please clarify the condition/diagnosis evaluated, monitored and/or treated?
Acute blood loss anemia
Acute blood loss anemia with baseline chronic anemia (Specify type)
Abnormal lab value, clinically insignificant
Other(please specify)
Use of terms such as suspected, likely, concern for, or probable (associated with a specific diagnosis that is being evaluated, monitored, or treated as if it exists) are acceptable and can be coded in the inpatient setting, when documented at the
time of discharge.
Thank you,
Rachell Junior RN BSN CCDS
CDI Specialist
please contact via tiger text
Please use your independent medical judgment in providing your response.
== END 2024-07-27 16:06 | DRG 478 ==
LOC: 2 SOUTH 20:01
PROVIDERS: Internal Medicine; Nurse Practitioner Family; Physician Assistant; Student in an Organized Health Care Education/Training Program; ADMITTING PHYSICIAN Internal Medicine; ATTENDING PHYSICIAN Internal Medicine; CONSULT PHYSICIAN Student in an Organized Health Care Education/Training Program; EMERGENCY PHYSICIAN Emergency Medicine; PRIMARYCARE PHYSICIAN Nurse Practitioner Family
PROC: 0QBL0ZX Excision of Right Tarsal, Open Approach, Diagnostic (ICD-10-PCS; 2024-07-15)
PROC: 0QBG0ZX Excision of Right Tibia, Open Approach, Diagnostic (ICD-10-PCS; 2024-07-15)
PROC: 0QSJ35Z Reposition Right Fibula with External Fixation Device, Percutaneous Approach (ICD-10-PCS; 2024-07-15)
PROC: 0QPJ04Z Removal of Internal Fixation Device from Right Fibula, Open Approach (ICD-10-PCS; 2024-07-15)
PROC: 0QBJ0ZX Excision of Right Fibula, Open Approach, Diagnostic (ICD-10-PCS; 2024-07-15)
PROC: 0QPG04Z Removal of Internal Fixation Device from Right Tibia, Open Approach (ICD-10-PCS; 2024-07-15)
PROC: 0QSG35Z Reposition Right Tibia with External Fixation Device, Percutaneous Approach (ICD-10-PCS; 2024-07-15)
PROC: 0SGH04Z Fusion of Right Tarsal Joint with Internal Fixation Device, Open Approach (ICD-10-PCS; 2024-07-22)
DX: T84.490A Other mechanical complication of muscle and tendon graft, initial encounter (principal); D62 Acute posthemorrhagic anemia; E11.9 Type 2 diabetes mellitus without complications; I10 Essential (primary) hypertension; Z87.891 Personal history of nicotine dependence; F32.A Depression, unspecified; F41.9 Anxiety disorder, unspecified; K52.9 Noninfective gastroenteritis and colitis, unspecified; Z79.4 Long term (current) use of insulin; Y79.8 Miscellaneous orthopedic devices associated with adverse incidents, not elsewhere classified
CPT/HCPCS: 88305; 88307; 88311; 73590; 73600; 73610; 73630; 73700; 76000; 80048; 80053; 80202; 82306; 82962; 83036; 83735; 85025; 85027; 85610; 85652; 85730; 86140; 87070; 87075; 87205; 90686; 93005; 97116; 97162; 97166; 97168; 97530; 97535; 99285; C1713; C1769; G0008

== ENCOUNTER → 2024-10-13 09:54 | Outpatient (REF) | payer OTHER, SELFPAY | LOC: HWRAD 09:54 | PROVIDERS: ATTENDING PHYSICIAN Nurse Practitioner Family; REFERRING PHYSICIAN Student in an Organized Health Care Education/Training Program | DX: Z78.0 Asymptomatic menopausal state (principal); Z12.31 Encounter for screening mammogram for malignant neoplasm of breast | CPT/HCPCS: 77063; 77067; 77080 ==

== ENCOUNTER → 2024-10-23 13:31 | Outpatient (REF) | payer OTHER, SELFPAY | LOC: HWRAD 13:31 | PROVIDERS: ATTENDING PHYSICIAN Nurse Practitioner Family | DX: R60.0 Localized edema (principal) | CPT/HCPCS: 93970 ==

== ENCOUNTER → 2025-01-25 12:20 | Outpatient (REF) | payer OTHER, SELFPAY | LOC: HWRAD 12:20 | PROVIDERS: ATTENDING PHYSICIAN Nurse Practitioner Family | DX: N93.9 Abnormal uterine and vaginal bleeding, unspecified (principal) | CPT/HCPCS: 76856 ==

== ENCOUNTER 2025-03-29 11:29 | Outpatient (RCR) | payer OTHER, SELFPAY | END 2025-03-29 23:59 | disposition home or self-care (01) | LOC: RPT 11:29 | PROVIDERS: ATTENDING PHYSICIAN Nurse Practitioner Family | DX: Z47.89 Encounter for other orthopedic aftercare (principal); M25.571 Pain in right ankle and joints of right foot; R26.89 Other abnormalities of gait and mobility; Z73.6 Limitation of activities due to disability; E11.40 Type 2 diabetes mellitus with diabetic neuropathy, unspecified; Z87.81 Personal history of (healed) traumatic fracture; Z91.81 History of falling | CPT/HCPCS: 97110; 97112; 97140; 97163; 97530; 97535 ==

== ENCOUNTER → 2025-04-12 11:09 | Outpatient (REF) | payer OTHER, SELFPAY | LOC: HWRAD 11:09 | PROVIDERS: ATTENDING PHYSICIAN Student in an Organized Health Care Education/Training Program | DX: M54.12 Radiculopathy, cervical region (principal); G89.29 Other chronic pain | CPT/HCPCS: 72052; 72072 ==

== ENCOUNTER 2025-04-22 11:23 | Outpatient (RCR) | payer OTHER, SELFPAY | END 2025-04-22 23:59 | disposition home or self-care (01) | LOC: RPT 11:23 | PROVIDERS: ATTENDING PHYSICIAN Nurse Practitioner Family | DX: Z87.81 Personal history of (healed) traumatic fracture (principal); Z47.89 Encounter for other orthopedic aftercare; M25.571 Pain in right ankle and joints of right foot; R26.89 Other abnormalities of gait and mobility; E11.40 Type 2 diabetes mellitus with diabetic neuropathy, unspecified; Z73.6 Limitation of activities due to disability; Z91.81 History of falling | CPT/HCPCS: 97110; 97116; 97530; 97535 ==

== ENCOUNTER 2025-05-27 10:28 | Emergency (ER) | payer OTHER, SELFPAY ==
[2025-05-27 10:31] VITALS: BP 136/72
--- NOTE | 2025-05-27 11:00 | ED.GENMED ---
History of Present Illness
General
Chief Complaint: Abdominal Symptoms
Time Seen by Provider: 05/27/25 10:38
History of Present Illness
History of Present Illness:
Patient is a 64-year-old female with past medical history of diverticulosis/diverticulitis with history of perforation status post bowel resection here today for evaluation of approximately 1 week of lower abdominal pain and distention. She also
notes constipation. She attempted to take MiraLAX with improvement in symptoms. No fevers or vomiting. No urinary symptoms. No other acute complaints.
Past History
Past History
ED Past Medical History: NIDDM, Psychiatric (Anxiety, Depression) and Other (Diverticulitis/diverticulosis, ovarian cyst, Colitis, Gastroenteritis, UTI, )
ED Past Surgical History: Appendectomy, Bowel resection, Cholecystectomy and Orthopedic (Gaglian cyst removed from wrist, Right foot surgery)
Social History
Tobacco: Former smoker
Alcohol: None
Drug: None
Personal: Single
Living: jail ([facility] for rehab)
Employment: Not employed
Family History
Family History: Other
Review of Systems
Review of Systems
All Other Systems: ROS reviewed and negative except as documented in HPI and ROS
Phy Exam
Physical Exam
Physical Exam:
GENERAL: Alert , in no apparent distress
EYE: Normal conjunctiva
NECK: Supple
ENT: o/p clr, mmm.
CARDIAC: Regular rate and rhythm .
LUNGS: Clear breath sounds bilaterally, no acute respiratory distress, no wheezes/rales/rhonchi
ABDOMEN: Soft, reported discomfort upon palpation along the lower abdomen, no rebound or guarding
NEUROLOGICAL: Alert and oriented, no focal neuro deficits
SKIN: Warm and dry, skin intact.
MUSCULOSKELETAL: No edema, well perfused.
PSYCH: Normal and appropriate interaction.
Course
Orders/Labs/Results
Orders:
Orders
05/27/25 10:59
Iohexol [Omnipaque] See Protocol PO NOW STA
05/27/25 11:00
CT Abd/pel W Iv And Oral Contr Urgent
Comment:
Reason For Exam: abd pain, hx of diverticulitis, constipation
05/27/25 11:03
Iohexol [Omnipaque] 50 ml .ROUTE .STK-MED ONE
05/27/25 11:26
Complete Blood Count/With Diff Urgent
Comprehensive Metabolic Panel Urgent
Lipase Urgent
05/27/25 14:13
Urinalysis Reflex To Culture Urgent
Date Specimen was Collected: 05/27/25
Time Specimen was Collected: 14:12
Urine Microscopic Reflex Cult Urgent
Urine Culture Urgent
MALAIKA Source: U
Specimen Description:
Date Specimen was Collected: 05/27/25
Time Specimen was Collected: 14:12
Abnormal Lab Results
05/27/25 05/27/25
11:26 14:13
WBC 11.8 H 10^3/uL
(4.8-10.8)
MCHC 32.0 L g/dL
(33.0-37.0)
RDW 15.4 H %
(11.5-14.5)
Absolute Neuts (auto) 8.7 H 10^3/uL
(1.4-6.5)
Absolute Monos (auto) 0.8 H 10^3/uL
(0.1-0.6)
Lymphocytes % 18.3 L %
(20.5-51.1)
BUN 20 H mg/dl
(7-17)
Glucose 188 H mg/dl
(70-99)
Lipase 345 H U/L
(23-300)
Urine Nitrite (Reflex) Positive A
(Negative)
Urine Bacteria (Reflex) Many A
(Negative)
Urine Albumin (Reflex) 1+ A
(Neg - Trace)
05/27/25 11:26
05/27/25 11:26
Vital Signs
Initial and Last Documented VS:
Initial Vital Signs
Temp Pulse Resp BP Pulse Ox
98.4 F 83 16 136/72 98
05/27/25 10:31 05/27/25 10:31 05/27/25 10:31 05/27/25 10:31 05/27/25 10:31
Last Documented Vital Signs
Temp Pulse Resp BP Pulse Ox
98.4 F 82 21 153/71 95
05/27/25 10:31 05/27/25 15:15 05/27/25 15:15 05/27/25 14:11 05/27/25 15:15
MDM/Problems Addressed
Differential Diagnosis Includes:
Patient is a 64-year-old female with past medical history of diverticulosis/diverticulitis with history of perforation status post bowel resection here today for evaluation of approximately 1 week of lower abdominal pain. Overall, patient
well-appearing. On examination the patient's abdomen is soft and there is reported discomfort upon palpation along the lower abdomen. No significant tenderness. No rebound or guarding. No rashes. Will obtain urinalysis, screening labs, and CT
abdomen/pelvis.
05/27/25 16:04: Screening labs reveal leukocytosis of 11.8. BUN 20 with a normal creatinine. Glucose 188. Lipase 345 however the patient's lipase has been previously elevated. She reports a prior history of acute pancreatitis. Her abdominal pain
and tenderness is all lower in nature. No epigastric/upper abdominal pain/discomfort. No vomiting. No risk factors for acute pancreatitis. Do not suspect this at this time but patient will require follow-up with GI. Patient made aware of this.
Urinalysis does reveal positive nitrates which the patient has had previously however there are no leukocyte esterase and 0-2 WBCs. There is also greater than 30 squamous epithelium present. Do not suspect true urinary tract infection. CT scan of
the abdomen and pelvis with IV contrast reveals mild fatty infiltration of the liver. There are surgical clips secondary to prior surgery. There is a uterine fibroid and left ovarian mass which the patient has had previously. 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 There are no emergent findings identified. There is colonic fecal burden and the patient was made aware of this and recommended to continue MiraLAX. We discussed supportive measures and close follow-up with her doctor. Patient voiced
understanding of the above plan. She appears well and stable for discharge. All questions answered.
*Pulse Oximetry
SaO2: 98
Oxygen Mode of Delivery: Room air
Patient hypoxic: no
*Critical Care Note
Total Time (30-74mins, 75-104mins- exclusive of procedures): Not Applicable
ED Attending Note
-
Portions of this chart may have been created with voice recognition software.� Occasional wrong word or��sound alike� substitutions may have occurred due to the inherent limitations of voice recognition software.
Discharge Plan
Departure
Patient Disposition: Home (Routine Discharge)
Date of Disposition: 05/27/25
Time of Disposition: 16:10
Patient with high blood pressure during this ER visit?: Yes
Condition: Fair
Discharge Problem:
Bilateral lower abdominal pain
Instructions: Abdominal Pain
Prescriptions:
No Action
atorvastatin [Lipitor] 20 mg Tablet
20 mg PO HS
metformin 500 mg tablet extended release 24hr
500 mg PO BID@0800,1700
lisinopril 20 mg Tablet
20 mg PO BID Qty: 60 0RF
amlodipine 5 mg Tablet
5 mg PO BID Qty: 60 0RF
insulin aspart U-100 100 unit/mL (3 mL) Insulin Pen
15 unit SC AC Qty: 1 0RF
pantoprazole 40 mg Tablet,Delayed Release (Dr/Ec)
40 mg PO DAILY Qty: 30 0RF
labetalol 100 mg Tablet
100 mg PO BID Qty: 60 0RF
therapeutic multivitamin Tablet
1 tab PO DAILY
gabapentin 300 mg capsule
300 mg PO HS
duloxetine 60 mg capsule,delayed release(DR/EC)
60 mg PO DAILY
cholecalciferol (vitamin D3) 25 mcg (1,000 unit) Tablet
50 mcg PO DAILY
calcium carb,cit-mag cit,ox-D3 300 mg-150 mg- 400 unit Tablet
1 tab PO DAILY
insulin glargine-yfgn 100 unit/mL (3 mL) insulin pen
28 unit SC HS
ibuprofen 200 mg Tablet
400 mg PO Q6HPRN PRN (Reason: mild pain)
polyethylene glycol 3350 [HealthyLax] 17 gram Powder In Packet
17 g PO DAILY Qty: 0 0RF
acetaminophen 325 mg Tablet
650 mg PO Q4HPRN PRN (Reason: mild pain/[place]/temp> 100.4F) Qty: 0 0RF
sennosides-docusate sodium 8.6-50 mg Tablet
1 tab PO DAILYPRN PRN (Reason: constipation) Qty: 0 0RF
oxycodone 5 mg Tablet
5 mg PO Q4HPRN PRN (Reason: moderate pain) Qty: 12 0RF
Lactobac/Bifidobac [Visbiome]
1 cap PO DAILY Qty: 1 0RF
amoxicillin-pot clavulanate 875-125 mg Tablet
1 tab PO Q12 6 Days Qty: 12 0RF
Referrals:
Suzanne An CRNP [Family Provider, Family Practice] - Follow up in 5-7 days
Joy Santos MD [Active, Gynecology] - Follow up in 1 week
Activity Restrictions/Additional Instructions:
You were seen in the emergency department today for evaluation of abdominal pain.
We obtained blood work which reveals a mild elevation in your white blood cell count to 11.8 thousand. There is also elevation in your glucose to 288 and elevation in your lipase (pancreas enzyme) to 345.
We obtained a CAT scan of your abdomen and pelvis which reveals the following:
Mild fatty infiltration of liver.
No obstructive uropathy. Small left renal cyst.
Surgical clips in the pelvis adjacent to the sigmoid colon. No apparent diverticula formation. No acute diverticulitis. No bowel obstruction. Mild colonic fecal burden.
3.2 cm uterine fibroid. Rounded 3.2 cm left ovarian mass of increased attenuation. Possible complex (proteinaceous or hemorrhagic) cyst. On prior ultrasound examination of 01/25/2025, there was a 3.7 cm left ovarian cyst. Uncertain if this represents
persistent slightly complex cyst or solid mass. Recommend follow-up nonemergent/elective pelvic ultrasound for comparison to prior ultrasound.
Please follow-up with your color checker for further testing and evaluation including a pelvic ultrasound.
We also recommend following up with your primary care provider within the next 3 to 5 days for close reevaluation.
Return for any new, worsening, or concerning symptoms.
Interventions
Interventions:
*Risk Screen - Suicide Last Done: 05/27/25 10:36
*General Assessment Last Done: 05/27/25 11:15
*Neglect/Abuse Screening Last Done: 05/27/25 10:36
*ED- Fall Risk Assessment Last Done: 05/27/25 11:15
*ED COVID-19 Vaccine History Last Done: 05/27/25 11:15
NV-Ibrxiz-Tblzxojunx Assessment Last Done: 05/27/25 11:23
Discharge Date and Time
Print Language: ALGERIAN
[2025-05-27 11:02] VITALS: BMI 45.5
[2025-05-27] MEDS: OMNIPAQUE 50 ML PO (11:08)
[2025-05-27 11:27] VITALS: BP 123/74
[2025-05-27 11:45] LABS: Hematocrit 37.5 % (37.0-47.0); Hemoglobin 12.0 g/dL (12.0-16.0); Mean Corp Hgb Conc. 32.0 g/dL (33.0-37.0); Mean Corpuscular Volume 85.8 fL (81.0-99.0); Nucleated Red Blood Cells % 0 %; Platelet Count 316 10^3/uL (130-400); Red Cell Dist. Width 15.4 % (11.5-14.5)
[2025-05-27 11:58] LABS: ALT (SGPT) 31 U/L (0-35); AST (SGOT) 24 U/L (14-36); Albumin 4.4 g/dl (3.5-5.0); Alkaline Phosphatase 108 U/L (38-126); Blood Urea Nitrogen 20 mg/dl (7-17); Calcium 9.9 mg/dl (8.4-10.2); Carbon Dioxide 30 mmol/L (22-30); Chloride 104 mmol/L (98-107); Estimated Creatinine Clearance 78 ml/min; Glucose 188 mg/dl (70-99); Lipase 345 U/L (23-300); Potassium 4.7 mmol/L (3.5-5.1); Sodium 140 mmol/L (135-145); Total Protein 7.1 g/dl (6.3-8.2); eGFR > 60.00
[2025-05-27 12:00] VITALS: BP 113/69
[2025-05-27 13:01] VITALS: BP 138/77
[2025-05-27 14:11] VITALS: BP 153/71
[2025-05-27 14:28] LABS: Urine Character Clear (Clear)
[2025-05-27 14:54] LABS: Urine Squamous Cell >30 /LPF (Few)
[2025-05-27 14:55] LABS: Urine Red Blood Cell None Seen /HPF (0-2); Urine White Cell 0-2 /HPF (0-5)
[2025-05-27 16:00] VITALS: BP 133/79
== END 2025-05-27 16:41 | disposition home or self-care (01) ==
LOC: EMR 10:28
PROVIDERS: Physician Assistant; EMERGENCY PHYSICIAN Emergency Medicine; FAMILY PHYSICIAN Nurse Practitioner Family
DX: R10.32 Left lower quadrant pain (principal); R10.31 Right lower quadrant pain; E11.9 Type 2 diabetes mellitus without complications; Z90.49 Acquired absence of other specified parts of digestive tract; K76.0 Fatty (change of) liver, not elsewhere classified; D25.9 Leiomyoma of uterus, unspecified; N83.8 Other noninflammatory disorders of ovary, fallopian tube and broad ligament; Z79.84 Long term (current) use of oral hypoglycemic drugs; Z87.19 Personal history of other diseases of the digestive system; Z87.891 Personal history of nicotine dependence
CPT/HCPCS: 99284; 74177; 80053; 81003; 81015; 83690; 85025; 87086; Q9967

== ENCOUNTER 2025-07-25 22:47 | Emergency (ER) | payer OTHER, SELFPAY ==
[2025-07-25 22:52] VITALS: BP 129/68
[2025-07-25 22:59] VITALS: BMI 44.6
[2025-07-25 23:00] VITALS: BP 135/67
[2025-07-26] VITALS (7 sets, daily range): BP systolic 118–146; BP diastolic 59–74
[2025-07-26 01:39] LABS: Hematocrit 36.4 % (37.0-47.0); Hemoglobin 11.7 g/dL (12.0-16.0); Mean Corp Hgb Conc. 32.1 g/dL (33.0-37.0); Mean Corpuscular Volume 85.8 fL (81.0-99.0); Nucleated Red Blood Cells % 0 %; Platelet Count 320 10^3/uL (130-400); Red Cell Dist. Width 15.1 % (11.5-14.5)
[2025-07-26] MEDS: TORADOL 15 MG IV ×2 (01:45→03:36)
[2025-07-26 01:59] LABS: C-Reactive Protein 8.80 mg/L (0.0-10.00)
[2025-07-26 02:06] LABS: ALT (SGPT) 35 U/L (0-35); AST (SGOT) 32 U/L (14-36); Albumin 4.2 g/dl (3.5-5.0); Alkaline Phosphatase 99 U/L (38-126); Blood Urea Nitrogen 40 mg/dl (7-17); Calcium 9.6 mg/dl (8.4-10.2); Carbon Dioxide 23 mmol/L (22-30); Chloride 106 mmol/L (98-107); Estimated Creatinine Clearance 61 ml/min; Glucose 207 mg/dl (70-99); Potassium 4.8 mmol/L (3.5-5.1); Sodium 136 mmol/L (135-145); Total Protein 6.9 g/dl (6.3-8.2); eGFR > 60.00
[2025-07-26] MEDS: NEURONTIN 300 MG PO (03:36)
[2025-07-26] MEDS: OFIRMEV 100 IV (03:36)
--- NOTE | 2025-07-26 04:04 | ED.GENMED ---
History of Present Illness
General
Chief Complaint: Numbness
Source: patient and ambulance crew
Exam Limitations: none
Time Seen by Provider: 07/25/25 23:50
Nursing documentation reviewed up to this point in time: agreed with
History of Present Illness
History of Present Illness:
The patient is a 65-year-old female with a history of insulin requiring diabetes, hypertension, hyperlipidemia, anxiety/depression, colitis/diverticulitis. She is presenting with severe neck pain that radiates down the left shoulder and left arm,
accompanied by headaches and numbness described as 'cold pins and needles.' The numbness is located left lateral upper arm as well as mildly to the left posterior forearm. The pain has been persistent for a couple of years, with worsening severity.
She reports that the pain has become 'intolerable' and compares it to someone trying to 'rip my arm off.' She experienced two falls several years ago but notes that these were distinct from the incident when she broke her ankle a year ago. No
recent falls.
She has history of ambulatory dysfunction, uses a walker versus rollator but admits that using her walker has been difficult due to left arm/shoulder and neck pain. More recently she has had limited mobility to wheelchair.
She initiated care with an pharmaceutical sales specialist approximately a week ago, who ordered an MRI of the cervical spine due to the severity of the symptoms. He also recommended physical therapy evaluation and treatment. She was prescribed meloxicam 15
mg daily last week. Thus far only minimal improvement in pain. She also has previous experience with gabapentin, which she discontinued about a year ago. The patient also mentioned past lower abdominal pain, initially suspected to be
diverticulitis but later linked to a sustained muscle spasm and diagnosed with osteoarthritis traveling to her [facility]. No recent falls or new traumatic events were reported. She has not had a fever nor chills. No chest pain or coughing or
shortness of breath. No weakness.
She resides at home alone. She does have a pediatric speech language pathologist with her 24 hours a day, 7 days a week.
Upon review of records, patient had previously been prescribed short courses of tramadol, January 2025. She states tramadol was abandoned due to episodes of hypoglycemia??
Past History
Past History
ED Past Medical History: HTN, Hypercholesterolemia, IDDM, NIDDM, Psychiatric (Anxiety, Depression) and Other (Diverticulitis/diverticulosis, ovarian cyst, Colitis, Gastroenteritis, UTI, )
ED Past Surgical History: Appendectomy, Bowel resection, Cholecystectomy and Orthopedic (Gaglian cyst removed from wrist, Right foot surgery)
Social History
Tobacco: Former smoker
Alcohol: None
Drug: None
Personal: Single
Living: alone (Has 24-hour pediatric speech language pathologist residing with her)
Employment: Not employed
Family History
Family History: Other (Noncontributory thank you)
Phy Exam
Physical Exam
Physical Exam:
GENERAL: 65-year-old woman appears her stated age, awake and alert, pleasant, easily communicative and in no acute distress.
EYE: anicteric
NECK: Supple, no midline bony tenderness. Mild paracervical muscle tenderness on the left as well as mild tenderness left superior trapezius musculature, no meningismus, no significant adenopathy.
ENT: posterior pharynx is clear, oral mucosa is moist. TM clear b/l, nares patent.
CARDIAC: Regular rate and rhythm. no murmur.
LUNGS: Clear breath sounds bilaterally, no acute respiratory distress, no wheezes/rales/rhonchi
ABDOMEN: Rotund, soft, nondistended, without focal tenderness, no r/g, no cvat. normoactive BS.
NEUROLOGICAL: Alert and oriented x3, no focal neuro deficits. Motor strength is 5/5 bilaterally. Hand grasps are full and equal bilaterally.
SKIN: Warm and dry, normal color, skin intact. No rash.
MUSCULOSKELETAL: No C/C/E. peripheral pulses are full and equal b/l. No palpable joint tenderness. There is full range of motion of the left shoulder, left elbow without difficulty. Mildly increased pain with abduction of left shoulder greater
than 110%.
PSYCH: Normal and appropriate interaction.
Course
Orders/Labs/Results
Orders:
Orders
07/26/25 00:28
Ketorolac [Toradol] 15 mg IV NOW STA
07/26/25 00:30
Electrocardiogram (*1) Urgent
Reason for Study: Other
Other Reason for Exam: L arm pain
EKG- Treatment ONCE
07/26/25 01:30
CRP [C-Reactive Protein] Urgent
Complete Blood Count/With Diff Urgent
Comprehensive Metabolic Panel Urgent
Sed Rate [Erythrocyte Sed Rate] Urgent
07/26/25 03:24
Acetaminophen 1000MG/100Ml [Ofirmev] 1,000 mg in 100 ml IV ONCE
Acetaminophen IV Indication:: ED Narcotic Naive Pt-ONCE
Gabapentin [Neurontin] 300 mg PO NOW STA
Ketorolac [Toradol] 15 mg IV NOW STA
Abnormal Lab Results
07/26/25
01:30
WBC 12.4 H 10^3/uL
(4.8-10.8)
Hgb 11.7 L g/dL
(12.0-16.0)
Hct 36.4 L %
(37.0-47.0)
MCHC 32.1 L g/dL
(33.0-37.0)
RDW 15.1 H %
(11.5-14.5)
Absolute Neuts (auto) 8.2 H 10^3/uL
(1.4-6.5)
Absolute Monos (auto) 1.2 H 10^3/uL
(0.1-0.6)
Monocytes % 9.7 H %
(1.7-9.3)
ESR 24 H mm/hour
(0-20)
BUN 40 H mg/dl
(7-17)
Glucose 207 H mg/dl
(70-99)
07/26/25 01:30
07/26/25 01:30
Vital Signs
Initial and Last Documented VS:
Initial Vital Signs
Temp Resp
98.2 F 18
07/25/25 22:49 07/25/25 22:49
Last Documented Vital Signs
Temp Pulse Resp BP Pulse Ox
98.2 F 96 19 128/68 96
07/25/25 22:49 07/26/25 06:00 07/26/25 06:00 07/26/25 06:00 07/26/25 05:45
MDM/Problems Addressed
Differential Diagnosis Includes:
The Differential Diagnosis includes, in no particular order and is not limited to:
1. Cervical radiculopathy
2. Cervical spondylosis
3. Osteoarthritis
4. Peripheral neuropathy
5. Myofascial pain syndrome
6. Spinal stenosis
7. Herniated cervical disc
8. Migraine headache
9. Rotator cuff tear
10. Brachial plexus injury
MDM/Problems Addressed:
Chronic neck pain with radiation to left arm, ongoing for a year, worsening over the past several months.
Highly suspect cervical disc disease with radiculopathy.
She certainly has risk factors for CAD thus we will check EKG.
She is afebrile, and reports no recent fever, no recent trauma.
There is no midline vertebral bony tenderness. No focal weakness therefore no indication for emergent MRI nor urgent imaging. I have discussed this with patient that at this point I am unable to perform an MRI for her as, at this point there is
nothing to suspect acute cord compression nor infectious process.
We can however assist with pain control.
Will trial an IV dose of Toradol to start.
Will check labs and assess inflammatory markers as well.
Chronic conditions affecting care: DM and HTN
*Pulse Oximetry
SaO2: 96
Oxygen Mode of Delivery: Room air
Patient hypoxic: no
*EKG
Interpreted by ED Provider?: Yes
Interpretation: normal
Comparison EKG: no changes (Unchanged from previous June 2024)
Rate: normal
Rhythm: sinus
Otis: normal axis
Interval: long QT (Borderline long QT)
QRS Pattern: normal QRS
Ischemia: no ischemia
*Auto Technician Interpretation
Rate: normal
Interpretation: normal
Rhythm: sinus
*Critical Care Note
Total Time (30-74mins, 75-104mins- exclusive of procedures): Not Applicable
Update Note
Update Note:
03:25
Patient reports no significant relief after initial dose of IV Toradol.
Laboratory studies essentially unremarkable. Random glucose 200. Inflammatory markers are unremarkable.
Will give an additional dose of Toradol along with an oral dose of gabapentin and an IV dose of Tylenol.
04:40
Patient reevaluated.
She is sleeping soundly.
Will continue to observe with plan for discharge to home this a.m.
Recommend trial of resumption of gabapentin for what appears to be chronic cervical disc disease with radicular left upper extremity pain.
Will encourage follow-up with her orthopedist as well as initiation of physical therapy.
06:40
We have continued to observe the patient throughout the morning, she continues to sleep soundly.
Upon waking, she states 'pain is still there'
overall appears quite comfortable and clearly pain has improved as she has been able to sleep without difficulty over the past several hours.
Will discharge to home with recommendation to follow-up with her orthopedist and encouraged to initiate physical therapy evaluation and treatment as prescribed by orthopedist.
Recommend she continue meloxicam and will resume gabapentin.
Prompt follow-up with PCP as well.
ED Attending Note
-
Portions of this chart may have been created with voice recognition software.� Occasional wrong word or��sound alike� substitutions may have occurred due to the inherent limitations of voice recognition software.
Discharge Plan
Departure
Patient Disposition: Home (Routine Discharge)
Date of Disposition: 07/26/25
Time of Disposition: 06:31
Patient with high blood pressure during this ER visit?: No
Condition: Good
Discharge Problem:
Chronic neck pain with radiculopathy
Instructions: Radiculopathy of the neck and back (including sciatica)
Prescriptions:
New
gabapentin 300 mg capsule
300 mg PO BID Qty: 60 0RF
Rx Instructions:
300 mg HS x 1 week, then 300 mg BID thereafter.
No Action
atorvastatin [Lipitor] 20 mg Tablet
20 mg PO HS
metformin 500 mg tablet extended release 24hr
500 mg PO BID@0800,1700
lisinopril 20 mg Tablet
20 mg PO BID Qty: 60 0RF
amlodipine 5 mg Tablet
5 mg PO BID Qty: 60 0RF
insulin aspart U-100 100 unit/mL (3 mL) Insulin Pen
15 unit SC AC Qty: 1 0RF
pantoprazole 40 mg Tablet,Delayed Release (Dr/Ec)
40 mg PO DAILY Qty: 30 0RF
labetalol 100 mg Tablet
100 mg PO BID Qty: 60 0RF
therapeutic multivitamin Tablet
1 tab PO DAILY
gabapentin 300 mg capsule
300 mg PO HS
duloxetine 60 mg capsule,delayed release(DR/EC)
60 mg PO DAILY
cholecalciferol (vitamin D3) 25 mcg (1,000 unit) Tablet
50 mcg PO DAILY
calcium carb,cit-mag cit,ox-D3 300 mg-150 mg- 400 unit Tablet
1 tab PO DAILY
insulin glargine-yfgn 100 unit/mL (3 mL) insulin pen
28 unit SC HS
ibuprofen 200 mg Tablet
400 mg PO Q6HPRN PRN (Reason: mild pain)
polyethylene glycol 3350 [HealthyLax] 17 gram Powder In Packet
17 g PO DAILY Qty: 0 0RF
acetaminophen 325 mg Tablet
650 mg PO Q4HPRN PRN (Reason: mild pain/[place]/temp> 100.4F) Qty: 0 0RF
sennosides-docusate sodium 8.6-50 mg Tablet
1 tab PO DAILYPRN PRN (Reason: constipation) Qty: 0 0RF
oxycodone 5 mg Tablet
5 mg PO Q4HPRN PRN (Reason: moderate pain) Qty: 12 0RF
Lactobac/Bifidobac [Visbiome]
1 cap PO DAILY Qty: 1 0RF
amoxicillin-pot clavulanate 875-125 mg Tablet
1 tab PO Q12 6 Days Qty: 12 0RF
Referrals:
UNKNOWN - PT DOES,NOT KNOW [Family Provider]
Activity Restrictions/Additional Instructions:
Follow-up with your orthopedist and I recommend you follow through with physical therapy initiation as prescribed by your orthopedist.
Continue meloxicam as prescribed by orthopedist.
I am adding gabapentin, to start 300 mg at bedtime for a week, increase to 300 mg twice daily thereafter.
Interventions
Interventions:
*Risk Screen - Suicide Last Done: 07/25/25 22:54
*General Assessment Last Done: 07/25/25 22:54
*Neglect/Abuse Screening Last Done: 07/25/25 22:54
*ED- Fall Risk Assessment Last Done: 07/25/25 22:54
*ED COVID-19 Vaccine History Last Done: 07/25/25 22:54
*ED Influenza Vaccine History Last Done: 07/25/25 22:54
ED- Neurological Assessment Last Done: 07/25/25 22:59
Discharge Date and Time
Print Language: ZAMBIAN
== END 2025-07-26 09:27 | disposition home or self-care (01) ==
LOC: EMR 22:47
PROVIDERS: EMERGENCY PHYSICIAN Emergency Medicine
DX: G89.29 Other chronic pain (principal); M54.2 Cervicalgia; M54.12 Radiculopathy, cervical region; E10.9 Type 1 diabetes mellitus without complications; I10 Essential (primary) hypertension; E78.00 Pure hypercholesterolemia, unspecified; F41.9 Anxiety disorder, unspecified; F32.A Depression, unspecified; M19.90 Unspecified osteoarthritis, unspecified site; Z79.4 Long term (current) use of insulin; Z79.84 Long term (current) use of oral hypoglycemic drugs; Z87.891 Personal history of nicotine dependence
CPT/HCPCS: 99284; 96374; 96375; 96376; 80053; 85025; 85652; 86140; 93005

== ENCOUNTER 2025-07-28 04:00 | Emergency (ER) | payer OTHER, SELFPAY ==
[2025-07-28 04:02] VITALS: BP 142/112
[2025-07-28 04:05] VITALS: BP 142/112
[2025-07-28 04:10] VITALS: BMI 44.3
[2025-07-28 04:16] VITALS: BP 155/101
[2025-07-28] MEDS: TORADOL 30 MG IM (04:30)
[2025-07-28 05:00] VITALS: BP 163/73
[2025-07-28] MEDS: PERCOCET 5/325 1 TABLET PO (05:47)
[2025-07-28 06:00] VITALS: BP 159/77
--- NOTE | 2025-07-28 06:02 | ED.GENMED ---
History of Present Illness
General
Chief Complaint: Musculo-Skeletal Complaint
Source: patient and ambulance crew
Exam Limitations: none
Time Seen by Provider: 07/28/25 04:12
Nursing documentation reviewed up to this point in time: agreed with
History of Present Illness
History of Present Illness:
Note:
CHIEF COMPLAINT(S)
Neck pain radiating to the left arm.
HISTORY OF PRESENT ILLNESS
The patient is a 65-year-old female presenting with pain that begins in the neck and extends down her left arm. This pain has been persistent but was initially mild, and the patient did not seek significant treatment until it worsened. It currently
feels as though 'somebodys trying to pull my arm off.' The patient attempted to use topical tiger balm, which also resulted in a burning sensation, leaving her uncertain if it was due to the balm itself. The pain has been significant enough that she
has sought a medical evaluation and has an appointment scheduled for an MRI in two and a half weeks. However, she feels unable to wait that long due to the severity of the pain.
In the past, the patient experienced a similar episode of pain on the other side of her neck, which was less intense. Previously, she took a Percocet offered by a former boyfriend, which successfully alleviated her symptoms, including a headache,
neck pain, and arm pain.
The patient indicates that currently prescribed Meloxicam has provided minimal relief. She also noted that slight positional changes, such as tilting her head, can affect the pain. The patient continually shakes her neck, acknowledging this as a
habitual behavior rather than an attempt to alleviate pain.
PAST MEDICAL AND SURGICAL HISTORY
No past medical or surgical history was discussed.
CHRONIC MEDICAL CONDITIONS SIGNIFICANTLY AFFECTING CARE
No chronic medical conditions affecting care were mentioned.
SOCIAL DETERMINANTS AFFECTING HEALTH
The patient noted that her best friend, whom she plans to call for transport, is the only contact she can remember, as others live far away or are unable to assist. Her mother is mobile but not driving.
MEDICATIONS
Meloxicam, with reported inadequate relief.
REVIEW OF SYSTEMS
- Musculoskeletal: Chronic neck pain extending to the left arm.
- Neurological: Describes previous headache relief with medication.
- Skin: Reports burning sensation secondary to applying tiger balm.
PHYSICAL EXAM
General: Alert, varying degrees of acute distress.
Skin: Warm, dry.
Head: Normocephalic, atraumatic.
Neck: Supple, trachea midline, some discomfort noted. Voluntary neck movements mind-altering.
Eyes, Ears, Nose, Mouth, and Throat: Oral mucosa moist.
Cardiovascular: Normal peripheral perfusion, no edema.
Respiratory: Respirations are non-labored.
Gastrointestinal: Abdomen nondistended.
Back: Normal range of motion, normal alignment.
Musculoskeletal: Normal range of motion, normal strength with neck pain as noted.
Neurological: Alert and oriented to person, place, time, and situation, no focal neurological deficit observed.
Psychiatric: Cooperative, appropriate mood and affect.
PROBLEM LIST
Acute:
- Neck pain radiating to left arm
PLAN
- Administer Toradol for pain relief.
- Plan for follow-up with primary care physician if severe pain persists.
- Assist with scheduling an MRI if earlier slots become available.
- Ensure patient arranges safe transportation after treatment.
DIFFERENTIAL DIAGNOSIS
The Differential Diagnosis includes, in no particular order and is not limited to:
- Cervical radiculopathy
- Cervical disc herniation
- Muscular strain or spasm
- Thoracic outlet syndrome
- Myofascial pain syndrome
- Cervical spondylosis
- Peripheral neuropathy
- Brachial plexus injury
- Rotator cuff pathology
- Carpal tunnel syndrome
CARE-UPDATE
07/28/25 - 05:45
Patient reported experiencing severe neck pain. She mentioned that Tylenol is ineffective for her condition. A single Percocet was provided for immediate relief, with the understanding that it is not accompanied by a prescription. Upcoming follow-up
with orthopedics is scheduled. Patient was advised on the safe use of narcotics, emphasizing the importance of obtaining prescriptions from a single provider, which she fully agreed to.
Disposition:
SUMMARY OF ENCOUNTER
A 65-year-old female presented to the emergency department with exacerbated chronic neck pain radiating to her left arm. She had previously experienced a similar episode and was seen in the emergency department two days prior. The patient has a
scheduled orthopedic follow-up and an MRI in two weeks. During her visit today, the patients neck pain improved, and she reported no new neurological deficits such as parasthesias, weakness, slurred speech, or facial droop. Her left arm pain has
been persistent over several years.
DISPOSITION
Discharge
ASSESSMENT
The patient is assessed with cervical radiculopathy.
PLAN
The patient will be discharged with instructions to follow up with orthopedics and attend the scheduled MRI. She should seek medical attention if symptoms worsen or new symptoms arise.
PATIENT EDUCATION AND COUNSELING
The patient was educated about the condition and advised to monitor for any new symptoms or worsening of the current symptoms. The importance of following up with orthopedics and completing the scheduled MRI was emphasized.
FOLLOW-UP INSTRUCTIONS
The patient is instructed to follow up with orthopedics as already scheduled and attend the MRI in two weeks. She should seek immediate medical attention if there are any new or worsening symptoms.
MEDICAL DECISION MAKING
- Number and Complexity of Problems Addressed: Chronic conditions affecting care include cervical radiculopathy.
- Data:
Category 1: Consideration of imaging such as MRI which is already scheduled; no new lab tests were discussed or ordered during this visit.
Category 2: Patients history of presenting condition and management was reviewed; however, no external records were specifically discussed.
-Risk: The decision for outpatient management reflects low risk due to improvement in symptoms and lack of acute concerning features.
DIAGNOSIS
Cervical Radiculopathy (ICD-10: M54.12)
Past History
Past History
ED Past Medical History: HTN, Hypercholesterolemia, IDDM, NIDDM, Psychiatric (Anxiety, Depression) and Other (Diverticulitis/diverticulosis, ovarian cyst, Colitis, Gastroenteritis, UTI, )
ED Past Surgical History: Appendectomy, Bowel resection, Cholecystectomy and Orthopedic (Gaglian cyst removed from wrist, Right foot surgery)
Social History
Tobacco: Former smoker
Alcohol: None
Drug: None
Personal: Single
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
Employment: Not employed
Family History
Family History: Other (Noncontributory thank you)
Review of Systems
Review of Systems
Allergies reviewed?: Yes
All Other Systems: ROS reviewed and negative except as documented in HPI and ROS
Phy Exam
Physical Exam
Physical Exam:
.
Course
Orders/Labs/Results
Orders:
Orders
07/28/25
Electrocardiogram (*1) Stat
Reason for Study: Hypertension, Benign
07/28/25 04:03
Electrocardiogram (*1) Urgent
Reason for Study: Hypertension, Benign
EKG- Treatment ONCE
07/28/25 04:26
Ketorolac [Toradol] 30 mg IM NOW STA
07/28/25 05:44
Oxycodone/Acetaminophen [Percocet 5/325] 1 tablet PO NOW STA
Vital Signs
Initial and Last Documented VS:
Initial Vital Signs
Temp Pulse Resp BP Pulse Ox
99 F 99 24 142/112 99
07/28/25 04:02 07/28/25 04:02 07/28/25 04:02 07/28/25 04:02 07/28/25 04:02
Last Documented Vital Signs
Temp Pulse Resp BP Pulse Ox
99 F 98 16 163/73 96
07/28/25 04:02 07/28/25 05:45 07/28/25 05:45 07/28/25 05:00 07/28/25 06:05
*Pulse Oximetry
SaO2: 96
Oxygen Mode of Delivery: Room air
Patient hypoxic: no
*Critical Care Note
Total Time (30-74mins, 75-104mins- exclusive of procedures): Not Applicable
Update Note
Update Note:
EKG shows normal sinus rhythm rate of 90 with normal intervals, normal left axis deviation. No evidence of acute ischemia present. Will compared with previous EKG this appears unchanged.
ED Attending Note
-
Portions of this chart may have been created with voice recognition software.� Occasional wrong word or��sound alike� substitutions may have occurred due to the inherent limitations of voice recognition software.
Discharge Plan
Departure
Patient Disposition: Home (Routine Discharge)
Date of Disposition: 07/28/25
Time of Disposition: 06:12
Patient with high blood pressure during this ER visit?: Yes
Condition: Good
Discharge Problem:
Radiculopathy, Neck pain
Instructions: Radiculopathy of the neck and back (including sciatica) (DC), BLOOD PRESSURE
Prescriptions:
New
diclofenac sodium 75 mg tablet,delayed release (DR/EC)
75 mg PO BID Qty: 10 0RF
No Action
atorvastatin [Lipitor] 20 mg Tablet
20 mg PO HS
metformin 500 mg tablet extended release 24hr
500 mg PO BID@0800,1700
lisinopril 20 mg Tablet
20 mg PO BID Qty: 60 0RF
amlodipine 5 mg Tablet
5 mg PO BID Qty: 60 0RF
insulin aspart U-100 100 unit/mL (3 mL) Insulin Pen
15 unit SC AC Qty: 1 0RF
pantoprazole 40 mg Tablet,Delayed Release (Dr/Ec)
40 mg PO DAILY Qty: 30 0RF
labetalol 100 mg Tablet
100 mg PO BID Qty: 60 0RF
therapeutic multivitamin Tablet
1 tab PO DAILY
gabapentin 300 mg capsule
300 mg PO HS
duloxetine 60 mg capsule,delayed release(DR/EC)
60 mg PO DAILY
cholecalciferol (vitamin D3) 25 mcg (1,000 unit) Tablet
50 mcg PO DAILY
calcium carb,cit-mag cit,ox-D3 300 mg-150 mg- 400 unit Tablet
1 tab PO DAILY
insulin glargine-yfgn 100 unit/mL (3 mL) insulin pen
28 unit SC HS
ibuprofen 200 mg Tablet
400 mg PO Q6HPRN PRN (Reason: mild pain)
polyethylene glycol 3350 [HealthyLax] 17 gram Powder In Packet
17 g PO DAILY Qty: 0 0RF
acetaminophen 325 mg Tablet
650 mg PO Q4HPRN PRN (Reason: mild pain/[place]/temp> 100.4F) Qty: 0 0RF
sennosides-docusate sodium 8.6-50 mg Tablet
1 tab PO DAILYPRN PRN (Reason: constipation) Qty: 0 0RF
oxycodone 5 mg Tablet
5 mg PO Q4HPRN PRN (Reason: moderate pain) Qty: 12 0RF
Lactobac/Bifidobac [Visbiome]
1 cap PO DAILY Qty: 1 0RF
amoxicillin-pot clavulanate 875-125 mg Tablet
1 tab PO Q12 6 Days Qty: 12 0RF
gabapentin 300 mg capsule
300 mg PO BID Qty: 60 0RF
Rx Instructions:
300 mg HS x 1 week, then 300 mg BID thereafter.
Referrals:
UNKNOWN - PT DOES,NOT KNOW [Family Provider]
Activity Restrictions/Additional Instructions:
Your prescriptions were sent electronically to the pharmacy that you specified.
Thank You for choosing [facility].
It was a pleasure meeting you and taking part in your care. We hope for your continued healing and wellness.
Please read discharge instructions in their entirety. However, they are for general education and may not describe your exact diagnosis at discharge. Information on your ER visit and medical conditions were discussed with you along with appropriate
follow up information...
If indicated, please take your medications as instructed and indicated on discharge paperwork.
Please schedule a follow up appointment as directed. Call to schedule an appointment
Please return to the emergency department with ANY change in, persisting, or worsening of symptoms. If any of your symptoms do not improve, or persist, or become more severe within 6-12 hours, please return to the emergency department for further
care.
Please return to the emergency department if you develop a headache, neck pain/stiffness, fever greater than 100.4F, chest pain, shortness of breath, persistent nausea, vomiting, slurred speech, difficulty walking, numbness/tingling, weakness, signs
of infection or any other symptoms that are worrisome to you.
If you have any questions or concerns please do not hesitate to call the Hospital at .
Interventions
Interventions:
*Risk Screen - Suicide Last Done: 07/28/25 04:10
*General Assessment Last Done: 07/28/25 04:10
*Neglect/Abuse Screening Last Done: 07/28/25 04:10
*ED- Fall Risk Assessment Last Done: 07/28/25 04:10
*ED COVID-19 Vaccine History Last Done: 07/28/25 04:10
*ED Influenza Vaccine History Last Done: 07/28/25 04:10
ED-Musculoskeletal Assessment Last Done: 07/28/25 04:13
Discharge Date and Time
Print Language: KOREAN
== END 2025-07-28 06:59 | disposition home or self-care (01) ==
LOC: EMR 04:00
PROVIDERS: EMERGENCY PHYSICIAN Student in an Organized Health Care Education/Training Program
DX: M54.12 Radiculopathy, cervical region (principal); I10 Essential (primary) hypertension; E11.9 Type 2 diabetes mellitus without complications; E78.00 Pure hypercholesterolemia, unspecified; F41.9 Anxiety disorder, unspecified; F32.A Depression, unspecified; Z79.84 Long term (current) use of oral hypoglycemic drugs; Z79.4 Long term (current) use of insulin; Z87.891 Personal history of nicotine dependence
CPT/HCPCS: 99284; 96372; 93005

== ENCOUNTER 2025-07-29 16:26 | Emergency (ER) | payer MEDICARE, OTHER, SELFPAY ==
[2025-07-29 16:30] VITALS: BP 129/74
[2025-07-29 16:55] VITALS: BP 133/120
[2025-07-29 16:56] VITALS: BMI 43.4
[2025-07-29 17:04] VITALS: BP 106/67
[2025-07-29 18:00] VITALS: BP 123/63
--- NOTE | 2025-07-29 18:24 | ED.GENMED ---
History of Present Illness
<Megha Landaverde PA-C - Last Filed: 07/30/25 00:25>
General
Chief Complaint: Extremity Pain (non-traumatic)
Source: patient and records
Exam Limitations: none
Time Seen by Provider: 07/29/25 17:56
History of Present Illness
History of Present Illness:
65yoF with a history of insulin-dependent diabetes presenting via EMS for evaluation of neck pain. Patient reports chronic issues with her neck for at least the past 1.5 years. Her pain started to worsen about a week ago. She saw her orthopedic
doctor (Dr. Juan in [place]) last week who ordered an MRI of her cervical spine and shoulder which is scheduled in 2.5 weeks. 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 She reports pain throughout the neck which radiates
down the left arm. Pain in the arm is described as a burning pain and feels like her 'arm is being chopped off.' Symptoms alleviate if she flexes the neck and worsen with extension. She believes she has a pinched nerve. She was seen in the ED on
07/26 and 07/28 for these symptoms. She has used meloxicam, gabapentin, and diclofenac without relief. She called her orthopedist today for persistent symptoms and she was told to go to the ED and demand hospitalization to obtain MRI. She is
febrile to 100.6 on arrival although denies feeling feverish. No weakness or paresthesias of the extremities. No history of IV drug use, neck surgeries, or epidural injections.
Past History
<Megha Landaverde PA-C - Last Filed: 07/30/25 00:25>
Past History
ED Past Medical History: HTN, Hypercholesterolemia, IDDM, NIDDM, Psychiatric (Anxiety, Depression) and Other (Diverticulitis/diverticulosis, ovarian cyst, Colitis, Gastroenteritis, UTI, )
ED Past Surgical History: Appendectomy, Bowel resection, Cholecystectomy and Orthopedic (Gaglian cyst removed from wrist, Right foot surgery)
Social History
Tobacco: Former smoker
Alcohol: None
Drug: None
Personal: Single
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
Employment: Not employed
Family History
Family History: Other (Noncontributory thank you)
Phy Exam
<Megha Landaverde PA-C - Last Filed: 07/30/25 00:25>
General Physical Exam
General Presentation: well appearing
General Skin: warm and dry
General Habitus: normal
General Mental: alert
ENT Exam
ENT Exam: normocephalic and other (No tenderness to palpation of cervical region. No meningismus. Neck extension elicits pain.)
Cardiovascular Exam
Cardiovascular Exam: normal peripheral pulses (2+ radial and DP pulses bilaterally)
Pulmonary Exam
Pulmonary Exam: no respiratory distress
Neurological Exam
Neurological Exam: alert, no motor deficits (5/5 strength and sensation intact in bilateral upper extremities) and speech normal
Kt Coma Scale
Eye Opening: Spontaneous
Verbal Response: Oriented
Motor Response: Obeys Commands
GCS Total Score: 15
Skin Exam
Skin Exam: warm/dry
Psychiatric Exam
Psychiatric Exam: normal mood/affect
Course
<Megha Landaverde PA-C - Last Filed: 07/30/25 00:25>
Orders/Labs/Results
Orders:
Orders
07/29/25 18:15
HYDROmorphone [Dilaudid] 0.5 mg IV NOW STA
Ketorolac [Toradol] 15 mg IV NOW STA
07/29/25 18:49
COVID-19 Antigen Urgent
Source: Nasal Swab
Influenza A+B Rapid Molecular Urgent
MALAIKA Source: Nasal Swab
Specimen Description:
07/29/25 18:50
MR Cervical Spine W Contrast Urgent
Comment:
Reason For Exam: neck pain, fever
Recent pill cam endoscopy?: No
07/29/25 19:00
Blood Culture Q30M
MALAIKA Source: Blood/Venous
Specimen Description:
07/29/25 19:28
CRP [C-Reactive Protein] Urgent
Comprehensive Metabolic Panel Urgent
Blood Culture Q30M
MALAIKA Source: Blood/Venous
Specimen Description:
07/29/25 19:29
Complete Blood Count/With Diff Urgent
ESR [Erythrocyte Sed Rate] Urgent
Lactate Level [Lactic Acid] Urgent
07/29/25 19:40
Diphenhydramine [Benadryl] 25 mg IV NOW STA
Abnormal Lab Results
07/29/25 07/29/25
19:28 19:29
WBC 13.3 H 10^3/uL
(4.8-10.8)
MCH 26.7 L pg
(27.0-31.0)
MCHC 32.0 L g/dL
(33.0-37.0)
RDW 15.3 H %
(11.5-14.5)
Absolute Neuts (auto) 9.0 H 10^3/uL
(1.4-6.5)
Absolute Monos (auto) 1.2 H 10^3/uL
(0.1-0.6)
BUN 33 H mg/dl
(7-17)
Creatinine 1.4 H mg/dL
(0.6-1.0)
Glucose 109 H mg/dl
(70-99)
07/29/25 19:29
07/29/25 19:28
Vital Signs
Initial and Last Documented VS:
Initial Vital Signs
Temp Pulse Resp BP Pulse Ox
100.6 F H 100 18 129/74 99
07/29/25 16:30 07/29/25 16:30 07/29/25 16:30 07/29/25 16:30 07/29/25 16:30
Last Documented Vital Signs
Temp Pulse Resp BP Pulse Ox
100.6 F H 100 18 119/65 91
07/29/25 16:30 07/29/25 16:30 07/29/25 16:30 07/29/25 22:00 07/29/25 22:45
<Collin Hernandez, DO - Last Filed: 07/29/25 20:12>
Orders/Labs/Results
Orders:
Orders
07/29/25 18:15
HYDROmorphone [Dilaudid] 0.5 mg IV NOW STA
Ketorolac [Toradol] 15 mg IV NOW STA
07/29/25 18:49
COVID-19 Antigen Urgent
Source: Nasal Swab
Influenza A+B Rapid Molecular Urgent
MALAIKA Source: Nasal Swab
Specimen Description:
07/29/25 18:50
MR Cervical Spine W Contrast Urgent
Comment:
Reason For Exam: neck pain, fever
Recent pill cam endoscopy?: No
07/29/25 19:00
Blood Culture Q30M
MALAIKA Source: Blood/Venous
Specimen Description:
07/29/25 19:28
CRP [C-Reactive Protein] Urgent
Comprehensive Metabolic Panel Urgent
Blood Culture Q30M
MALAIKA Source: Blood/Venous
Specimen Description:
07/29/25 19:29
Complete Blood Count/With Diff Urgent
ESR [Erythrocyte Sed Rate] Urgent
Lactate Level [Lactic Acid] Urgent
07/29/25 19:40
Diphenhydramine [Benadryl] 25 mg IV NOW STA
Abnormal Lab Results
07/29/25 07/29/25
19:28 19:29
WBC 13.3 H 10^3/uL
(4.8-10.8)
MCH 26.7 L pg
(27.0-31.0)
MCHC 32.0 L g/dL
(33.0-37.0)
RDW 15.3 H %
(11.5-14.5)
Absolute Neuts (auto) 9.0 H 10^3/uL
(1.4-6.5)
Absolute Monos (auto) 1.2 H 10^3/uL
(0.1-0.6)
BUN 33 H mg/dl
(7-17)
Creatinine 1.4 H mg/dL
(0.6-1.0)
Glucose 109 H mg/dl
(70-99)
07/29/25 19:29
07/29/25 19:28
Vital Signs
Initial and Last Documented VS:
Initial Vital Signs
Temp Pulse Resp BP Pulse Ox
100.6 F H 100 18 129/74 99
07/29/25 16:30 07/29/25 16:30 07/29/25 16:30 07/29/25 16:30 07/29/25 16:30
Last Documented Vital Signs
Temp Pulse Resp BP Pulse Ox
100.6 F H 100 18 119/65 91
07/29/25 16:30 07/29/25 16:30 07/29/25 16:30 07/29/25 22:00 07/29/25 22:45
Mónicalt;Megha Landaverde PA-C - Last Filed: 07/30/25 00:25>
MDM/Problems Addressed
Differential Diagnosis Includes:
65yoF here with acute on chronic neck pain. Radiates down L arm. 3rd ED visit this week for these symptoms. Febrile to 100.6 on arrival although she denies chills or feeling feverish. Upper extremities are neurovascularly intact with 5/5 strength.
Differential diagnosis includes: Cervical radiculopathy, muscular strain, consider epidural abscess/osteomyelitis given fever and underlying diabetes
Initial ED plan: Check septic workup including ESR/CRP, lactate, blood cultures, and MRI cervical spine with contrast. IV Toradol and Dilaudid for pain.
<Megha Landaverde PA-C - Last Filed: 07/30/25 00:25>
*Pulse Oximetry
SaO2: 90
Oxygen Mode of Delivery: Room air
Patient hypoxic: no
*Critical Care Note
Total Time (30-74mins, 75-104mins- exclusive of procedures): Not Applicable
<Megha Landaverde PA-C - Last Filed: 07/30/25 00:25>
Update Note
Update Note:
Leukocytosis noted with a white count of 13.3 although both ESR and CRP are normal. MRI of cervical spine is negative for epidural abscess, discitis, or osteomyelitis. There are age-indeterminate disc protrusions at C3-4 and C5-6 with degenerative
changes. No intrinsic cervical cord signal alteration. Pain improved on reassessment and she was able to ambulate well. No indication for hospitalization. She was encouraged to follow-up with her orthopedic team and ED return precautions
discussed. Patient discharged in stable condition.
ED Attending Note
<Megha Landaverde PA-C - Last Filed: 07/30/25 00:25>
-
Portions of this chart may have been created with voice recognition software.� Occasional wrong word or��sound alike� substitutions may have occurred due to the inherent limitations of voice recognition software.
<Collin Hernandez DO - Last Filed: 07/29/25 20:12>
ED Attending Note
Patient seen and examined by attending physician: Yes
I performed the substantive portion of visit, reviewed & personally made and approve the management plan that is documented in note by myself or KAREEN.: Yes
ED Attending Note:
Seen with PA third visit with neck pain sounds radicular noninflammatory markers on visit #1 apparently saw orthopedist who referred her to the ER for an MRI to be admitted here she does have a fever apparently has chronic neck pain, will repeat
inflammatory markers and cultures try to get MRI urgently to rule out discitis or abscess etc.
Discharge Plan
Departure
Patient Disposition: Home (Routine Discharge)
Date of Disposition: 07/29/25
Time of Disposition: 22:59
Patient with high blood pressure during this ER visit?: No
Discharge Problem:
Neck pain
Instructions: Radiculopathy of the neck and back (including sciatica)
Prescriptions:
No Action
atorvastatin [Lipitor] 20 mg Tablet
20 mg PO HS
metformin 500 mg tablet extended release 24hr
500 mg PO BID@0800,1700
lisinopril 20 mg Tablet
20 mg PO BID Qty: 60 0RF
amlodipine 5 mg Tablet
5 mg PO BID Qty: 60 0RF
insulin aspart U-100 100 unit/mL (3 mL) Insulin Pen
15 unit SC AC Qty: 1 0RF
pantoprazole 40 mg Tablet,Delayed Release (Dr/Ec)
40 mg PO DAILY Qty: 30 0RF
labetalol 100 mg Tablet
100 mg PO BID Qty: 60 0RF
therapeutic multivitamin Tablet
1 tab PO DAILY
gabapentin 300 mg capsule
300 mg PO HS
duloxetine 60 mg capsule,delayed release(DR/EC)
60 mg PO DAILY
cholecalciferol (vitamin D3) 25 mcg (1,000 unit) Tablet
50 mcg PO DAILY
calcium carb,cit-mag cit,ox-D3 300 mg-150 mg- 400 unit Tablet
1 tab PO DAILY
insulin glargine-yfgn 100 unit/mL (3 mL) insulin pen
28 unit SC HS
ibuprofen 200 mg Tablet
400 mg PO Q6HPRN PRN (Reason: mild pain)
polyethylene glycol 3350 [HealthyLax] 17 gram Powder In Packet
17 g PO DAILY Qty: 0 0RF
acetaminophen 325 mg Tablet
650 mg PO Q4HPRN PRN (Reason: mild pain/[place]/temp> 100.4F) Qty: 0 0RF
sennosides-docusate sodium 8.6-50 mg Tablet
1 tab PO DAILYPRN PRN (Reason: constipation) Qty: 0 0RF
oxycodone 5 mg Tablet
5 mg PO Q4HPRN PRN (Reason: moderate pain) Qty: 12 0RF
Lactobac/Bifidobac [Visbiome]
1 cap PO DAILY Qty: 1 0RF
amoxicillin-pot clavulanate 875-125 mg Tablet
1 tab PO Q12 6 Days Qty: 12 0RF
gabapentin 300 mg capsule
300 mg PO BID Qty: 60 0RF
Rx Instructions:
300 mg HS x 1 week, then 300 mg BID thereafter.
diclofenac sodium 75 mg tablet,delayed release (DR/EC)
75 mg PO BID Qty: 10 0RF
Referrals:
Suzanne An CRNP [Family Provider, Family Practice]
Activity Restrictions/Additional Instructions:
Continue taking diclofenac and gabapentin as previously prescribed.
Please call your orthopedic physician tomorrow and discussed the MRI results. Return to the ER with any new or worsening symptoms.
Interventions
Interventions:
*Risk Screen - Suicide Last Done: 07/29/25 16:32
*General Assessment Last Done: 07/29/25 17:02
*Neglect/Abuse Screening Last Done: 07/29/25 16:32
*ED- Fall Risk Assessment Last Done: 07/29/25 17:02
*ED COVID-19 Vaccine History Last Done: 07/29/25 17:02
*ED Influenza Vaccine History Last Done: 07/29/25 17:02
*Nursing Disposition Last Done: 07/29/25 23:50
ED-Skin Assessment Last Done: 07/29/25 17:02
ED-Peripheral Vascular Assessment Last Done: 07/29/25 17:05
ED-Musculoskeletal Assessment Last Done: 07/29/25 17:02
Discharge Date and Time
Discharge Date/Time: 07/29/25 23:50
Print Language: LATVIAN
[2025-07-29 19:22] LABS: COVID-19 Antigen Negative (Negative)
[2025-07-29] MEDS: TORADOL 15 MG IV (19:31)
[2025-07-29] MEDS: DILAUDID IV (19:32)
[2025-07-29] MEDS: DILAUDID 0.5 MG IV (19:40)
[2025-07-29 19:42] LABS: Hematocrit 38.4 % (37.0-47.0); Hemoglobin 12.3 g/dL (12.0-16.0); Mean Corp Hgb Conc. 32.0 g/dL (33.0-37.0); Mean Corpuscular Volume 83.5 fL (81.0-99.0); Nucleated Red Blood Cells % 0 %; Platelet Count 334 10^3/uL (130-400); Red Cell Dist. Width 15.3 % (11.5-14.5)
[2025-07-29] MEDS: BENADRYL 25 MG IV (19:42)
[2025-07-29 19:55] LABS: ALT (SGPT) 35 U/L (0-35); AST (SGOT) 24 U/L (14-36); Albumin 4.4 g/dl (3.5-5.0); Alkaline Phosphatase 102 U/L (38-126); Blood Urea Nitrogen 33 mg/dl (7-17); Calcium 10.1 mg/dl (8.4-10.2); Carbon Dioxide 24 mmol/L (22-30); Chloride 107 mmol/L (98-107); Estimated Creatinine Clearance 43 ml/min; Glucose 109 mg/dl (70-99); Potassium 4.7 mmol/L (3.5-5.1); Sodium 140 mmol/L (135-145); Total Protein 7.1 g/dl (6.3-8.2); eGFR 41.75
[2025-07-29 19:59] LABS: C-Reactive Protein 5.70 mg/L (0.0-10.00)
[2025-07-29 20:58] VITALS: BP 124/64
[2025-07-29 22:00] VITALS: BP 119/65
== END 2025-07-29 23:50 | disposition home or self-care (01) ==
LOC: EMR 16:26
PROVIDERS: Physician Assistant; EMERGENCY PHYSICIAN Emergency Medicine; FAMILY PHYSICIAN Nurse Practitioner Family
DX: M54.2 Cervicalgia (principal); E11.9 Type 2 diabetes mellitus without complications; E78.00 Pure hypercholesterolemia, unspecified; I10 Essential (primary) hypertension; Z90.49 Acquired absence of other specified parts of digestive tract; Z87.891 Personal history of nicotine dependence; Z79.4 Long term (current) use of insulin
CPT/HCPCS: 96374; 96375; 99284; 72142; 80053; 83605; 85025; 85652; 86140; 87040; 87502; 87811; A9575

== ENCOUNTER → 2025-09-04 10:56 | Outpatient (REF) | payer MEDICARE, OTHER, SELFPAY | LOC: PAVMRI 10:56 | PROVIDERS: ATTENDING PHYSICIAN Nurse Practitioner Family | DX: R10.30 Lower abdominal pain, unspecified (principal); M46.1 Sacroiliitis, not elsewhere classified | CPT/HCPCS: 72148; 72195 ==